=== PATIENT | female | born 1960 | race Hispanic/Latino ===

== ENCOUNTER 2016-10-27 15:32 | Emergency (ER) | payer SELFPAY ==
--- NOTE | 2016-10-27 15:55 | Emergency Department Report ---
Stated Complaint: CHEST PAIN - HPI History of Present Illness: Patient c/o soreness-type chest pain gradually worsening x days. States slipped and fell, landing on her chest 5 days ago. States pain causing her to have SOB. - Exam Physical Exam: Heart: RRR. R Chest wall tender to palpation. MSE screening note: Focused history and physical exam performed. Due to findings the following was ordered: ED Disposition for MSE Condition: Stable
--- NOTE | 2016-10-27 16:54 | XRay Report ---
CHEST 2 VIEWS: INDICATION: Chest pain, shortness of breath. COMPARISON: 04/24/2016 FINDINGS: PA and lateral chest radiographs again demonstrate normal cardiomediastinal silhouette, slight aortic knob calcifications and clear lungs. Grossly unremarkable bones. CONCLUSION: No acute disease in the chest. Thank you for the opportunity to participate in this patient's care.
--- NOTE | 2016-10-27 16:54 | XRay Report ---
RIB RADIOGRAPHS WITH CHEST VIEW: INDICATION: Patient fell on chest 5 days ago. Chest, right upper pain. Pain on breathing and raising arms. Smoker, history of asthma. COMPARISON: 04/24/2016 CXR. FINDINGS: Frontal chest as also AP and oblique radiographs to evaluate bilateral ribs, 6 projections demonstrate normal cardiomediastinal silhouette. Clear lungs without effusions, CHF or pneumothorax. Slight aortic knob calcifications. Lumbar spondylosis and fusion hardware incompletely imaged. Specifically, no definite or significantly displaced rib fractures identified. CONCLUSION: Normal bilateral rib radiographs with few other incidental findings, as described. Please note that some acute rib fractures may be radiographically occult. Thank you for the opportunity to participate in this patient's care.
[2016-10-27 17:12] LABS: Basophils % (Auto) 0.6 % (0.0-1.8); Eosinophils % (Auto) 1.8 % (0.0-4.3); Hematocrit 43.5 % (30.3-42.9); Hemoglobin 14.8 gm/dl (10.1-14.3); Mean Corpuscular HGB Conc 34 % (30-34); Mean Corpuscular Hemoglobin 29 pg (28-32); Mean Corpuscular Volume 84 fl (79-97); Platelet Count 265 K/mm3 (140-440); Red Blood Count 5.17 M/mm3 (3.65-5.03); Red Cell Distribution Width 14.5 % (13.2-15.2); White Blood Count 10.8 K/mm3 (4.5-11.0)
[2016-10-27 17:29] LABS: Creatine Kinase MB 1.1 ng/mL (0.0-4.0)
[2016-10-27 17:30] LABS: Anion Gap 19 mmol/L; BUN/Creatinine Ratio 13.33; Blood Urea Nitrogen 12 mg/dL (7-17); Calcium 9.1 mg/dL (8.4-10.2); Carbon Dioxide 27 mmol/L (22-30); Chloride 94.9 mmol/L (98-107); Creatine Kinase 26 units/L (30-135); Glucose 269 mg/dL (65-100); Sodium 137 mmol/L (137-145)
--- NOTE | 2016-10-27 20:40 | Emergency Department Report ---
Addendum entered and electronically signed by QUINCY CHENG NP 20:54: Original Note: ED Fall HPI - General Chief Complaint: Chest Pain Stated Complaint: CHEST PAIN Source: patient Mode of arrival: Ambulatory - History of Present Illness Initial Comments: Patient presents after a fall 4 days ago landing on her chest. She states the pain is in the right upper portion. She states she tripped over a garbage can and fell on the concrete. She does admit to trying Aleve with no help and hydrocodone 5 mg that did help. She denies hitting her head, nausea, vomiting, chills, fever. 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 Place Fall Occurred: home Loss of Consciousness: none Prolonged Down Time?: no Symptoms Prior to Fall: none Location: chest Severity: severe Severity scale (0 -10): 10 Quality: sharp, aching Context: tripped/slipped Associated Symptoms: denies - Related Data Previous Rx's Medication Instructions Recorded Last Taken Type Miconazole Nitrate [Miconazole 7 1 suppositor VG QHS #7 supp.vag 08/11/15 Unknown Rx Vag Suppos] Ciprofloxacin HCl [Ciprofloxacin 500 mg PO BID #20 tablet 04/25/16 Unknown Rx TAB] Cyclobenzaprine HCl 7.5 mg PO BID PRN #14 tab 10/27/16 Unknown Rx [Cyclobenzaprine 7.5 MG TAB] Allergies Allergy/AdvReac Type Severity Reaction Status Date / Time codeine Allergy Rash Verified 08/10/15 12:04 ED Review of Systems ROS: Stated complaint: CHEST PAIN Other details as noted in HPI Constitutional: denies: chills, fever Respiratory: denies: cough, shortness of breath, wheezing Cardiovascular: denies: chest pain, palpitations Gastrointestinal: denies: abdominal pain, nausea, diarrhea Musculoskeletal: as per HPI Skin: denies: rash, lesions Neurological: denies: headache, weakness, paresthesias ED Past Medical Hx - Past Medical History Hx Hypertension: Yes Hx Diabetes: Yes Additional medical history: hyperthyroid - Surgical History Additional Surgical History: fusion to back - Social History Smoking Status: Never Smoker Substance Use Type: None - Medications Home Medications: Home Medications Medication Instructions Recorded Confirmed Last Taken Type Miconazole Nitrate [Miconazole 7 1 suppositor VG QHS #7 supp.vag 10/26/15 Unknown Rx Vag Suppos] Ciprofloxacin HCl [Ciprofloxacin 500 mg PO BID #20 tablet 04/25/16 Unknown Rx TAB] Cyclobenzaprine HCl 7.5 mg PO BID PRN #14 tab 10/27/16 Unknown Rx [Cyclobenzaprine 7.5 MG TAB] ED Physical Exam - General Limitations: No Limitations General appearance: alert, in no apparent distress - Head Head exam: Present: atraumatic, normocephalic - Neck Neck exam: Present: normal inspection, full ROM - Respiratory Respiratory exam: Present: normal lung sounds bilaterally. Absent: respiratory distress - Cardiovascular Cardiovascular Exam: Present: regular rate, normal rhythm. Absent: systolic murmur, diastolic murmur, rubs, gallop - GI/Abdominal GI/Abdominal exam: Present: soft, normal bowel sounds - Back Exam Back exam: Present: normal inspection - Neurological Exam Neurological exam: Present: alert, oriented X3 - Psychiatric Psychiatric exam: Present: normal affect, normal mood - Skin Skin exam: Present: warm, dry, intact, normal color. Absent: rash - Other Other exam information: There is no bruising to her right upper chest, there is no decreased range of motion of upper extremities. She is tender to palpation in the intercostal spaces approximately at rib #4-5. Not appreciate any swelling, or redness. ED Course Vital Signs 10/27/16 15:51 Temperature 98.6 F Pulse Rate 95 H Respiratory 20 Rate Blood Pressure 112/79 O2 Sat by Pulse 100 Oximetry ED Medical Decision Making - Lab Data Result diagrams: 10/27/16 16:51 10/27/16 16:51 - Medical Decision Making Patient presents with a fall, her EKG is within normal her chest x-ray is within normal and her rib x-ray is within normal. She is requesting hydrocodone , I informed her I could give her tramadol which she declined. I will give her Flexeril. I'll advise her to use a pillow to splint when taking deep breaths. - Differential Diagnosis rib fracture, muscle strain Critical Care Time: No Critical care attestation.: If time is entered above; I have spent that time in minutes in the direct care of this critically ill patient, excluding procedure time. ED Disposition Clinical Impression: Pectoralis muscle strain Disposition: DISCHARGED TO HOME OR SELFCARE Is pt being admited?: No Does the pt Need Aspirin: No Condition: Stable Instructions: Muscle Strain (ED), Musculoskeletal Pain (ED) Prescriptions: Cyclobenzaprine HCl [Cyclobenzaprine 7.5 MG TAB] 7.5 mg PO BID PRN #14 tab PRN Reason: Pain Time of Disposition: 20:52
[2016-10-27 21:12] VITALS: BP 116/82
== END 2016-10-27 21:11 | disposition home or self-care (01) ==
LOC: ED 15:32
DX: S29.011A Strain of muscle and tendon of front wall of thorax, initial encounter (principal); I10 Essential (primary) hypertension; E11.9 Type 2 diabetes mellitus without complications; E05.90 Thyrotoxicosis, unspecified without thyrotoxic crisis or storm; Z88.5 Allergy status to narcotic agent; W19.XXXA Unspecified fall, initial encounter; Y93.89 Activity, other specified; Y99.9 Unspecified external cause status; Y92.89 Other specified places as the place of occurrence of the external cause
CPT/HCPCS: 36415; 71020; 71110; 80048; 82550; 82553; 84484; 85025; 93005; 93010

== ENCOUNTER 2017-05-26 09:58 | Emergency (ER) | payer SELFPAY ==
[2017-05-26 10:05] VITALS: BP 155/91
[2017-05-27] MEDS ORDERED: NORCO 7.5/325 ONE (16:07)
== END 2017-05-26 12:58 | disposition left against medical advice (07) ==
LOC: ED 09:58
DX: M79.89 Other specified soft tissue disorders (principal); Z53.21 Procedure and treatment not carried out due to patient leaving prior to being seen by health care provider

== ENCOUNTER 2017-05-27 10:25 | Inpatient (IN) | payer SELFPAY ==
[2017-05-27] MEDS ORDERED: NACL 0.9% 1000 ML 1,000 ML IV ONE ×2 (12:23→13:35)
[2017-05-27] MEDS ORDERED: XYLOCAINE 1% 20 mL INFILTRATI ONE (12:23)
[2017-05-27] MEDS ORDERED: CLEOCIN 900 MG/50 mL 900 MG/50 ML BAG IV ONE (12:26)
[2017-05-27 13:10] LABS: Hematocrit 37.3 % (30.3-42.9); Hemoglobin 12.2 gm/dl (10.1-14.3); Mean Corpuscular HGB Conc 33 % (30-34); Mean Corpuscular Hemoglobin 28 pg (28-32); Mean Corpuscular Volume 87 fl (79-97); Platelet Count 256 K/mm3 (140-440); Red Cell Distribution Width 13.7 % (13.2-15.2); White Blood Count 19.8 K/mm3 (4.5-11.0)
[2017-05-27 13:30] LABS: Albumin 2.7 g/dL (3.9-5); Albumin/Globulin Ratio 0.6 %; BUN/Creatinine Ratio 24.61; Bilirubin,Total 0.6 mg/dL (0.1-1.2); Calcium 8.5 mg/dL (8.4-10.2); Chloride 79.1 mmol/L (98-107); Potassium 4.6 mmol/L (3.6-5.0); Total Protein 6.9 g/dL (6.3-8.2)
[2017-05-27] MEDS ORDERED: D50W (25GM) Syringe IV PRN ×2 (13:59→15:35)
[2017-05-27] MEDS ORDERED: NovoLIN R 100 UNITS in NACL 0.9% 99 ML IV SCH ×3 (14:00→22:00)
[2017-05-27] MEDS ORDERED: SODIUM CHLORIDE FLUSH SYRINGE 10 ML IV NR (14:00)
[2017-05-27] MEDS ORDERED: NACL 0.9% 500 ML 500 ML IV ONE (14:01)
[2017-05-27] MEDS ORDERED: NORCO PO ONE (14:01)
--- NOTE | 2017-05-27 14:01 | Emergency Department Report ---
ED General Adult HPI - General Chief complaint: Skin/Abscess/Foreign Body Stated complaint: KNOT UNDER RIGHT ARM/INFLAMED Time Seen by Provider: 05/27/17 12:05 Source: patient, RN notes reviewed Mode of arrival: Ambulatory Limitations: No Limitations - History of Present Illness Initial comments: This is a 56-year-old female. She is previously unknown to me. She presents to the ER complaining of right lateral flank wall redness, pain and discomfort. Complains of generalized weakness. No fevers or chills, no chest pain or shortness of breath. In the emergency department, patient is found to be hyperglycemic with a blood sugar of 659, with a decreased sodium of 118, likely combination of pseudohyponatremia, and hypovolemic hyponatremia. Patient was found to be tachycardic with a leukocytosis. The patient is going to be treated empirically for soft tissue cellulitis/sepsis, with appropriate normal saline bolus, lactic acid, blood cultures, and IV clindamycin. The patient is started on the diabetic ketoacidosis pathway, with an insulin drip and insulin push. Case was presented to the critical care physician on-call, Dr. Medina, who agreed with placement to the intensive care unit for the aforementioned findings. Case was also discussed with nephrology on-call, Dr. Jacobson, who agree the patient's hyponatremia was most likely combination secondary to pseudohyponatremia and hypovolemia. Case is presented to the Hospital physician, Dr. Raymond, who accepts the patient to his service. The patient's right lateral flank wall erythema and induration are not suitable for incision and drainage at this time, as there is no fluctuance. -: Gradual Location: chest, back, abdomen Quality: aching Consistency: constant Improves with: rest Worsens with: movement Associated Symptoms: loss of appetite, malaise, weakness - Related Data Home Medications Medication Instructions Recorded Confirmed Last Taken Escitalopram [Lexapro] 10 mg PO DAILY 05/27/17 05/27/17 05/27/17 Levothyroxine [Synthroid] 50 mcg PO QAM 05/27/17 05/27/17 05/27/17 Lisinopril [Zestril] 20 mg PO QDAY 05/27/17 05/27/17 05/27/17 PARoxetine CR (NF) [Paxil (Nf)] 12.5 mg PO QAM 05/27/17 05/27/17 05/27/17 Rosuvastatin (Nf) [Crestor] 20 mg PO QHS 05/27/17 05/27/17 05/27/17 Allergies Allergy/AdvReac Type Severity Reaction Status Date / Time codeine Allergy Rash Verified 05/27/17 10:49 ED Review of Systems ROS: Stated complaint: KNOT UNDER RIGHT ARM/INFLAMED Other details as noted in HPI Constitutional: malaise Eyes: denies: vision change ENT: denies: epistaxis Respiratory: denies: cough Cardiovascular: denies: chest pain Gastrointestinal: denies: abdominal pain Musculoskeletal: back pain, arthralgia, myalgia Skin: rash, lesions Neurological: weakness ED Past Medical Hx - Past Medical History Hx Hypertension: Yes Hx Diabetes: Yes Hx Arthritis: Yes Hx Asthma: Yes Additional medical history: hyperthyroid - Surgical History Additional Surgical History: fusion to back - Social History Smoking Status: Current Every Day Smoker Substance Use Type: None - Medications Home Medications: Home Medications Medication Instructions Recorded Confirmed Last Taken Type Escitalopram [Lexapro] 10 mg PO DAILY 05/27/17 05/27/17 05/27/17 History Levothyroxine [Synthroid] 50 mcg PO QAM 05/27/17 05/27/17 05/27/17 History Lisinopril [Zestril] 20 mg PO QDAY 05/27/17 05/27/17 05/27/17 History PARoxetine CR (NF) [Paxil (Nf)] 12.5 mg PO QAM 05/27/17 05/27/17 05/27/17 History Rosuvastatin (Nf) [Crestor] 20 mg PO QHS 05/27/17 05/27/17 05/27/17 History ED Physical Exam - General Limitations: No Limitations General appearance: alert, in no apparent distress - Head Head exam: Present: atraumatic, normocephalic - Eye Eye exam: Present: normal appearance, EOMI. Absent: nystagmus - ENT ENT exam: Present: normal exam, normal orophraynx, mucous membranes dry, normal external ear exam - Neck Neck exam: Present: normal inspection, full ROM. Absent: tenderness, meningismus - Respiratory Respiratory exam: Present: normal lung sounds bilaterally, chest wall tenderness (on the right lateral thoracic wall, there are areas of induration, redness and tenderness. Well-circumscribed area of induration in the proximal axilla, however no fluctuance or crepitus.). Absent: respiratory distress, wheezes, rales, rhonchi, stridor, accessory muscle use, decreased breath sounds , prolonged expiratory - Cardiovascular Cardiovascular Exam: Present: normal rhythm, tachycardia, normal heart sounds. Absent: systolic murmur, diastolic murmur, rubs, gallop - GI/Abdominal GI/Abdominal exam: Present: soft, normal bowel sounds. Absent: distended, tenderness, guarding, rebound, rigid - Extremities Exam Extremities exam: Present: normal inspection, full ROM, normal capillary refill. Absent: pedal edema, joint swelling, calf tenderness - Back Exam Back exam: Present: normal inspection, full ROM. Absent: tenderness, CVA tenderness (R), CVA tenderness (L), muscle spasm, paraspinal tenderness, vertebral tenderness - Neurological Exam Neurological exam: Present: alert, oriented X3, normal gait, other (Extraocular movements intact. Tongue midline. No facial droop. Facial sensation intact to light touch in the V1, V2, V3 distribution bilaterally. 5 and 5 strength in 4 extremities.. Sensation is intact to light touch in 4 extremities.). Absent : motor sensory deficit - Psychiatric Psychiatric exam: Present: normal affect, normal mood - Skin Skin exam: Present: warm, rash, erythema ED Course Vital Signs 05/27/17 05/27/17 05/27/17 10:38 13:56 14:29 Temperature 97.9 F 98.5 F Pulse Rate 125 H 103 H 107 H Respiratory 18 18 17 Rate Blood Pressure 107/55 Blood Pressure [94/56] Blood Pressure 104/61 [Left] O2 Sat by Pulse 98 100 Oximetry 05/27/17 05/27/17 05/27/17 14:30 14:40 14:50 Temperature Pulse Rate 109 H 109 H 104 H Respiratory 13 15 11 L Rate Blood Pressure 120/61 120/61 Blood Pressure [94/56] Blood Pressure [Left] O2 Sat by Pulse 98 Oximetry 05/27/17 05/27/17 05/27/17 15:00 15:10 15:20 Temperature Pulse Rate 103 H 101 H 103 H Respiratory 18 23 19 Rate Blood Pressure 97/55 97/55 97/55 Blood Pressure [94/56] Blood Pressure [Left] O2 Sat by Pulse 97 98 98 Oximetry 05/27/17 05/27/17 05/27/17 15:30 15:40 15:50 Temperature Pulse Rate 100 H 105 H 103 H Respiratory 26 H 16 14 Rate Blood Pressure 97/55 97/55 97/55 Blood Pressure [94/56] Blood Pressure [Left] O2 Sat by Pulse 98 97 98 Oximetry 05/27/17 05/27/17 05/27/17 16:00 16:10 16:19 Temperature Pulse Rate 105 H 108 H Respiratory 10 L 13 22 Rate Blood Pressure 94/46 94/56 Blood Pressure [94/56] Blood Pressure [Left] O2 Sat by Pulse 98 98 Oximetry 05/27/17 05/27/17 05/27/17 16:20 16:21 16:30 Temperature 98.6 F Pulse Rate 102 H 105 H 102 H Respiratory 29 H 22 31 H Rate Blood Pressure 94/56 94/56 Blood Pressure 94/56 [94/56] Blood Pressure [Left] O2 Sat by Pulse 97 98 98 Oximetry 05/27/17 05/27/17 05/27/17 16:40 16:50 17:00 Temperature Pulse Rate 102 H 103 H 103 H Respiratory 29 H 35 H 27 H Rate Blood Pressure 94/56 94/56 80/43 Blood Pressure [94/56] Blood Pressure [Left] O2 Sat by Pulse 97 95 96 Oximetry 05/27/17 05/27/17 05/27/17 17:10 17:20 17:30 Temperature Pulse Rate 104 H 105 H 98 H Respiratory 31 H 14 30 H Rate Blood Pressure 80/43 80/43 80/42 Blood Pressure [94/56] Blood Pressure [Left] O2 Sat by Pulse 94 96 95 Oximetry 05/27/17 05/27/17 05/27/17 17:40 17:50 18:00 Temperature Pulse Rate 98 H 98 H 99 H Respiratory 28 H 27 H 24 Rate Blood Pressure 85/46 84/45 85/47 Blood Pressure [94/56] Blood Pressure [Left] O2 Sat by Pulse 96 95 96 Oximetry ED Medical Decision Making - Lab Data Result diagrams: 05/27/17 13:00 05/27/17 16:18 Vital Signs 05/27/17 05/27/17 10:38 13:56 Temperature 97.9 F 98.5 F Pulse Rate 125 H 103 H Respiratory 18 18 Rate Blood Pressure 107/55 Blood Pressure 104/61 [Left] O2 Sat by Pulse 98 100 Oximetry Lab Results 05/27/17 05/27/17 05/27/17 Range/Units 13:00 13:00 13:00 WBC 19.8 H (4.5-11.0) K/mm3 RBC 4.30 (3.65-5.03) M/mm3 Hgb 12.2 (10.1-14.3) gm/dl Hct 37.3 (30.3-42.9) % MCV 87 (79-97) fl MCH 28 (28-32) pg MCHC 33 (30-34) % RDW 13.7 (13.2-15.2) % Plt Count 256 (140-440) K/mm3 Add Manual Diff Complete Total Counted 100 Seg Neutrophils % Legal Analyst Seg Neuts % (Manual) 84.0 H (40.0-70.0) % Band Neutrophils % 14.0 % Lymphocytes % (Manual) 2.0 L (13.4-35.0) % Reactive Lymphs % (Man) 0 % Monocytes % (Manual) 0 (0.0-7.3) % Eosinophils % (Manual) 0 (0.0-4.3) % Basophils % (Manual) 0 (0.0-1.8) % Metamyelocytes % 0 % Myelocytes % 0 % Promyelocytes % 0 % Blast Cells % 0 % Nucleated RBC % Not Reportable Seg Neutrophils # Man 16.6 H (1.8-7.7) K/mm3 Band Neutrophils # 2.8 K/mm3 Lymphocytes # (Manual) 0.4 L (1.2-5.4) K/mm3 Abs React Lymphs (Man) 0.0 K/mm3 Monocytes # (Manual) 0.0 (0.0-0.8) K/mm3 Eosinophils # (Manual) 0.0 (0.0-0.4) K/mm3 Basophils # (Manual) 0.0 (0.0-0.1) K/mm3 Metamyelocytes # 0.0 K/mm3 Myelocytes # 0.0 K/mm3 Promyelocytes # 0.0 K/mm3 Blast Cells # 0.0 K/mm3 WBC Morphology Not Reportable Hypersegmented Neuts Not Reportable Hyposegmented Neuts Not Reportable Hypogranular Neuts Not Reportable Smudge Cells Not Reportable Toxic Granulation Not Reportable Toxic Vacuolation Not Reportable Dohle Bodies Not Reportable Pelger-Huet Anomaly Not Reportable Aria Rods Not Reportable Platelet Estimate Appears normal Clumped Platelets Not Reportable Plt Clumps, EDTA Not Reportable Large Platelets Few Giant Platelets Not Reportable Platelet Satelliting Not Reportable Plt Morphology Comment Not Reportable RBC Morphology Normal Dimorphic RBCs Not Reportable Polychromasia Not Reportable Hypochromasia Not Reportable Poikilocytosis Not Reportable Anisocytosis Not Reportable Microcytosis Not Reportable Macrocytosis Not Reportable Spherocytes Not Reportable Pappenheimer Bodies Not Reportable Sickle Cells Not Reportable Target Cells Not Reportable Tear Drop Cells Not Reportable Ovalocytes Not Reportable Helmet Cells Not Reportable [place] Bodies Not Reportable [place] Rings Not Reportable [place] Cells Not Reportable Bite Cells Not Reportable Crenated Cell Not Reportable Elliptocytes Not Reportable Acanthocytes (Spur) Not Reportable Rouleaux Not Reportable Hemoglobin C Crystals Not Reportable Schistocytes Not Reportable Malaria parasites Not Reportable Erick Bodies Not Reportable Hem Pathologist Commnt No VBG pH (7.320-7.420) Sodium 118 L* (137-145) mmol/L Potassium 4.6 (3.6-5.0) mmol/L Chloride 79.1 L (98-107) mmol/L Carbon Dioxide 22 (22-30) mmol/L Anion Gap 22 mmol/L BUN 32 H (7-17) mg/dL Creatinine 1.3 H (0.7-1.2) mg/dL Estimated GFR 43 ml/min BUN/Creatinine Ratio 24.61 % Glucose 659 H* (65-100) mg/dL Lactic Acid 2.90 H* (0.7-2.0) mmol/L Calcium 8.5 (8.4-10.2) mg/dL Total Bilirubin 0.60 (0.1-1.2) mg/dL AST 14 (5-40) units/L ALT 13 (7-56) units/L Alkaline Phosphatase 105 (35-129) units/L Total Protein 6.9 (6.3-8.2) g/dL Albumin 2.7 L (3.9-5) g/dL Albumin/Globulin Ratio 0.6 % 05/27/17 Range/Units 13:54 WBC (4.5-11.0) K/mm3 RBC (3.65-5.03) M/mm3 Hgb (10.1-14.3) gm/dl Hct (30.3-42.9) % MCV (79-97) fl MCH (28-32) pg MCHC (30-34) % RDW (13.2-15.2) % Plt Count (140-440) K/mm3 Add Manual Diff Total Counted Seg Neutrophils % Seg Neuts % (Manual) (40.0-70.0) % Band Neutrophils % % Lymphocytes % (Manual) (13.4-35.0) % Reactive Lymphs % (Man) % Monocytes % (Manual) (0.0-7.3) % Eosinophils % (Manual) (0.0-4.3) % Basophils % (Manual) (0.0-1.8) % Metamyelocytes % % Myelocytes % % Promyelocytes % % Blast Cells % % Nucleated RBC % Seg Neutrophils # Man (1.8-7.7) K/mm3 Band Neutrophils # K/mm3 Lymphocytes # (Manual) (1.2-5.4) K/mm3 Abs React Lymphs (Man) K/mm3 Monocytes # (Manual) (0.0-0.8) K/mm3 Eosinophils # (Manual) (0.0-0.4) K/mm3 Basophils # (Manual) (0.0-0.1) K/mm3 Metamyelocytes # K/mm3 Myelocytes # K/mm3 Promyelocytes # K/mm3 Blast Cells # K/mm3 WBC Morphology Hypersegmented Neuts Hyposegmented Neuts Hypogranular Neuts Smudge Cells Toxic Granulation Toxic Vacuolation Dohle Bodies Pelger-Huet Anomaly Aria Rods Platelet Estimate Clumped Platelets Plt Clumps, EDTA Large Platelets Giant Platelets Platelet Satelliting Plt Morphology Comment RBC Morphology Dimorphic RBCs Polychromasia Hypochromasia Poikilocytosis Anisocytosis Microcytosis Macrocytosis Spherocytes Pappenheimer Bodies Sickle Cells Target Cells Tear Drop Cells Ovalocytes Helmet Cells [place] Bodies [place] Rings [place] Cells Bite Cells Crenated Cell Elliptocytes Acanthocytes (Spur) Rouleaux Hemoglobin C Crystals Schistocytes Malaria parasites Erick Bodies Hem Pathologist Commnt VBG pH 7.347 (7.320-7.420) Sodium (137-145) mmol/L Potassium (3.6-5.0) mmol/L Chloride (98-107) mmol/L Carbon Dioxide (22-30) mmol/L Anion Gap mmol/L BUN (7-17) mg/dL Creatinine (0.7-1.2) mg/dL Estimated GFR ml/min BUN/Creatinine Ratio % Glucose (65-100) mg/dL Lactic Acid (0.7-2.0) mmol/L Calcium (8.4-10.2) mg/dL Total Bilirubin (0.1-1.2) mg/dL AST (5-40) units/L ALT (7-56) units/L Alkaline Phosphatase (35-129) units/L Total Protein (6.3-8.2) g/dL Albumin (3.9-5) g/dL Albumin/Globulin Ratio % - Radiology Data Radiology results: image reviewed interpreted by me: X-ray of the chest is negative for acute disease Critical Care Time: Yes Critical care time in (mins) excluding proc time.: 60 Critical care attestation.: If time is entered above; I have spent that time in minutes in the direct care of this critically ill patient, excluding procedure time. Critical Care Time: Critical care time includes multiple bedside evaluations, interpretation of laboratory studies, radiology studies, time spent managing critically ill patient with multiple metabolic, electrolytes and infectious disease abnormalities. This required consultation with hospital medicine, critical care nephrology. This does not include procedure time. ED Disposition Clinical Impression: Sepsis affecting skin, Hyperglycemia, Renal insufficiency Disposition: OP ADMIT IP TO THIS HOSP Is pt being admited?: Yes Condition: Good
[2017-05-27 14:19] LABS: Basophils % (Manual) 0 % (0.0-1.8); Blastocytes % (Manual) 0 %; Diff Status Complete; Eosinophils % (Manual) 0 % (0.0-4.3); Large Platelets Few; RBC Morphology Normal; Total Cells Counted Percent 0
[2017-05-27 14:32] LABS: Magnesium 2.1 mg/dL (1.7-2.3); Phosphorous 3.7 mg/dL (2.5-4.5)
--- NOTE | 2017-05-27 14:50 | Admit Criteria Form ---
Admission Criteria Documentation: SEPSIS and OTHER FEBRILE ILLNESS, W/O FOCAL INFECTION Clinical Indications for Admission to Inpatient Care ( Place 'X' for any and all applicable criteria): Admission to inpatient status for two midnights or more is indicated for ANY ONE of the following (1)(2)(3): [ X] I. Bacteremia [ ]II. Suspected or identified specific infection requiring hospitalization (eg, meningitis, endocarditis) [ ]III. Hemodynamic instability [ ]IV. Temperature > 104.9 0F (40.5 0C) (oral) [ ]V. Core (rectal) temperature < 95 0F (35 0C) (eg, thought to be due to infection) [ ]. Altered mental status that is severe or persistent [ ]VII. Failure or unavailability of outpatient antimicrobial treatment [ ]VIII. Hypoxemia [ ]IX. Seizures [ ]X. New coagulopathy (eg, reduced platelet count consistent with disseminated intravascular coagulation) [X ]XI. Inpatient admission required [B] rather than observation care because of 1 or more of the following []1) Tachypnea not responsive to outpatient or observation treatment [X]2) Metabolic disorder (eg, hypoglycemia, hyperglycemia, metabolic acidosis) that persists despite outpatient and observation care treatment []3) Evidence of end-organ dysfunction (eg, rising creatinine, myocardial ischemia, rising liver function tests) that is severe or persists despite observation care treatment []4) Temperature > 103.1 0F (39.5 0C) (oral) that is not responsive to observation care treatment [] 5) Dehydration that is severe or persistent []6) Parenteral antimicrobial regimen that must be implemented on inpatient basis (eg, infusion or monitoring needs beyond capabilities of outpatient parenteral therapy) [] 7) Strict or protective (eg, laminar flow) isolation [X] 8) Other condition, treatment or monitoring requiring inpatient admission Extended stay beyond goal length of stay may be needed for(1)(3) [ ]a) Persistent Hypotension [ ]b) Positive blood cultures [ ]c) Lack of improvement on antimicrobial treatment (eg, continued fever) [ ]d) Active comorbid illness (eg, heart failure, renal failure) [ ]e) High-risk febrile neutropenia [ ]f) Insufficient oral intake [ ]g) insufficient oral intake The original [facility] content created by [employer] has been revised. The portions of the content which have been revised are identified through the use of italic text or in bold, and [facility] has neither reviewed nor approved the modified material. All other unmodified content is copyright [facility]. Please see references footnoted in the original [facility] edition 2017 Admission Criteria Met: Yes
[2017-05-27] MEDS ORDERED: ZOFRAN ONE (15:00)
[2017-05-27] MEDS ORDERED: ZOFRAN IV ONE (15:04)
[2017-05-27 15:15] LABS: Bacteria,Urine 1+ /HPF (Negative); Bilirubin,Urine NEG (Negative); Blood,Urine SM (Negative); Ketones,Urine 20 mg/dL (Negative); Leukocyte Esterase,Urine LG (Negative); Mucus,Urine FEW /HPF; Nitrite,Urine NEG (Negative); Protein,Urine <15 mg/dL mg/dL (Negative)
[2017-05-27 15:17] LABS: WBC,Urine > 182.0 /HPF (0.0-6.0)
--- NOTE | 2017-05-27 15:27 | History and Physical Report ---
History of Present Illness Date of examination: 05/27/17 Date of admission: 05/27/17 Chief complaint: Feeling weak and nauseous 2 days History of present illness: History of Present Illness 56-year-old female presents to the ER complaining of right lateral flank wall redness, pain and discomfort. Complains of generalized weakness. No fevers or chills, no chest pain or shortness of breath. In the emergency department, patient is found to be hyperglycemic with a blood sugar of 659, with a decreased sodium of 118, likely combination of pseudohyponatremia, and hypovolemic hyponatremia. Patient was found to be tachycardic with a leukocytosis. Past Medical History Hx Hypertension: Yes Hx Diabetes: Yes Hx Arthritis: Yes Hx Asthma: Yes Additional medical history: hypothyroid - Surgical History Additional Surgical History: fusion to back - Social History Smoking Status: Current Every Day Smoker Substance Use Type: None - Medications Home Medications: Home Medications Medication Instructions Recorded Confirmed Last Taken Type Escitalopram [Lexapro] 10 mg PO DAILY 05/27/17 05/27/17 05/27/17 History Levothyroxine [Synthroid] 50 mcg PO QAM 05/27/17 05/27/17 05/27/17 History Lisinopril [Zestril] 20 mg PO QDAY 05/27/17 05/27/17 05/27/17 History PARoxetine CR (NF) [Paxil (Nf)] 12.5 mg PO QAM 05/27/17 05/27/17 05/27/17 History Rosuvastatin (Nf) [Crestor] 20 mg PO QHS 05/27/17 05/27/17 05/27/17 History Medications and Allergies Allergies Allergy/AdvReac Type Severity Reaction Status Date / Time codeine Allergy Rash Verified 05/27/17 10:49 Home Medications Medication Instructions Recorded Confirmed Last Taken Type Escitalopram [Lexapro] 10 mg PO DAILY 05/27/17 05/27/17 05/27/17 History Levothyroxine [Synthroid] 50 mcg PO QAM 05/27/17 05/27/17 05/27/17 History Lisinopril [Zestril] 20 mg PO QDAY 05/27/17 05/27/17 05/27/17 History PARoxetine CR (NF) [Paxil (Nf)] 12.5 mg PO QAM 05/27/17 05/27/17 05/27/17 History Rosuvastatin (Nf) [Crestor] 20 mg PO QHS 05/27/17 05/27/17 05/27/17 History Active Meds: Active Medications Dextrose (D50w (25gm)) 0 ml IV PRN PRN PRN Reason: Hypoglycemia Insulin Human Regular 100 (units/ Sodium Chloride) 100 mls @ 1 mls/hr IV TITR BRITTNI; 1 UNITS/HR PRN Reason: Protocol Sodium Chloride (Sodium Chloride Flush Syringe 10 Ml) 10 ml IV PRN NR Stop: 05/30/17 13:59 Review of Systems All systems: negative Constitutional: no weight loss, no weight gain, no fever, no chills, no sweats, no night sweats Ears, nose, mouth and throat: no hoarseness, no sore throat, no swelling in mouth, no swelling in throat Cardiovascular: no chest pain, no orthopnea, no palpitations, no rapid/ irregular heart beat, no edema, no syncope Respiratory: no cough, no cough with sputum, no excessive sputum, no hemoptysis , no shortness of breath, no dyspnea on exertion Gastrointestinal: nausea, vomiting Musculoskeletal: no neck stiffness, no neck pain, no shooting arm pain, no arm numbness/tingling, no low back pain, no shooting leg pain, no leg numbness/ tingling, no redness of joints Integumentary: redness (Rt Flank c/w early abscess) Neurological: no seizures, no syncope Psychiatric: no anxiety, no memory loss, no change in sleep habits, no sleep disturbances, no insomnia, no hypersomnia, no change in appetite, no change in libido Endocrine: excessive thirst, no cold intolerance, no heat intolerance Hematologic/Lymphatic: no easy bruising, no easy bleeding Allergic/Immunologic: no urticaria, no allergic rhinitis, no wheezing Exam - Physical Exam Narrative exam: In no distress - Constitutional Vitals: Temp Pulse Resp BP Pulse Ox 98.5 F 103 H 18 104/61 100 05/27/17 13:56 05/27/17 13:56 05/27/17 13:56 05/27/17 13:56 05/27/17 13:56 General appearance: Present: no acute distress, well-nourished - EENT Eyes: Present: PERRL ENT: hearing intact, clear oral mucosa - Neck Neck: Present: supple, normal ROM - Respiratory Respiratory effort: normal Respiratory: bilateral: CTA - Cardiovascular Heart rate: 90 Rhythm: regular Heart Sounds: Present: S1 & S2. Absent: rub, click - Extremities Extremities: no ischemia, pulses intact, pulses symmetrical, No edema Peripheral Pulses: within normal limits - Abdominal General gastrointestinal: Present: soft, non-tender, non-distended, normal bowel sounds, other (Rt Flank redness c/w early abscess) Female genitourinary: Present: normal - Rectal Rectal Exam: deferred - Integumentary Integumentary: Present: clear, warm, dry - Musculoskeletal Musculoskeletal: gait normal, strength equal bilaterally - Psychiatric Psychiatric: appropriate mood/affect, intact judgment & insight - Neurologic Neurologic: CNII-XII intact, moves all extremities Results - Labs CBC & Chem 7: 05/27/17 13:00 05/28/17 08:20 Labs: Laboratory Last Values WBC 19.8 K/mm3 (4.5-11.0) H 05/27/17 13:00 RBC 4.30 M/mm3 (3.65-5.03) 05/27/17 13:00 Hgb 12.2 gm/dl (10.1-14.3) 05/27/17 13:00 Hct 37.3 % (30.3-42.9) 05/27/17 13:00 MCV 87 fl (79-97) 05/27/17 13:00 MCH 28 pg (28-32) 05/27/17 13:00 MCHC 33 % (30-34) 05/27/17 13:00 RDW 13.7 % (13.2-15.2) 05/27/17 13:00 Plt Count 256 K/mm3 (140-440) 05/27/17 13:00 Add Manual Diff Complete 05/27/17 13:00 Total Counted 100 05/27/17 13:00 Seg Neutrophils % Screen Making Supervisor 05/27/17 13:00 Seg Neuts % (Manual) 84.0 % (40.0-70.0) H 05/27/17 13:00 Band Neutrophils % 14.0 % 05/27/17 13:00 Lymphocytes % (Manual) 2.0 % (13.4-35.0) L 05/27/17 13:00 Reactive Lymphs % (Man) 0 % 05/27/17 13:00 Monocytes % (Manual) 0 % (0.0-7.3) 05/27/17 13:00 Eosinophils % (Manual) 0 % (0.0-4.3) 05/27/17 13:00 Basophils % (Manual) 0 % (0.0-1.8) 05/27/17 13:00 Metamyelocytes % 0 % 05/27/17 13:00 Myelocytes % 0 % 05/27/17 13:00 Promyelocytes % 0 % 05/27/17 13:00 Blast Cells % 0 % 05/27/17 13:00 Nucleated RBC % Not Reportable 05/27/17 13:00 Seg Neutrophils # Man 16.6 K/mm3 (1.8-7.7) H 05/27/17 13:00 Band Neutrophils # 2.8 K/mm3 05/27/17 13:00 Lymphocytes # (Manual) 0.4 K/mm3 (1.2-5.4) L 05/27/17 13:00 Abs React Lymphs (Man) 0.0 K/mm3 05/27/17 13:00 Monocytes # (Manual) 0.0 K/mm3 (0.0-0.8) 05/27/17 13:00 Eosinophils # (Manual) 0.0 K/mm3 (0.0-0.4) 05/27/17 13:00 Basophils # (Manual) 0.0 K/mm3 (0.0-0.1) 05/27/17 13:00 Metamyelocytes # 0.0 K/mm3 05/27/17 13:00 Myelocytes # 0.0 K/mm3 05/27/17 13:00 Promyelocytes # 0.0 K/mm3 05/27/17 13:00 Blast Cells # 0.0 K/mm3 05/27/17 13:00 WBC Morphology Not Reportable 05/27/17 13:00 Hypersegmented Neuts Not Reportable 05/27/17 13:00 Hyposegmented Neuts Not Reportable 05/27/17 13:00 Hypogranular Neuts Not Reportable 05/27/17 13:00 Smudge Cells Not Reportable 05/27/17 13:00 Toxic Granulation Not Reportable 05/27/17 13:00 Toxic Vacuolation Not Reportable 05/27/17 13:00 Dohle Bodies Not Reportable 05/27/17 13:00 Pelger-Huet Anomaly Not Reportable 05/27/17 13:00 Aria Rods Not Reportable 05/27/17 13:00 Platelet Estimate Appears normal 05/27/17 13:00 Clumped Platelets Not Reportable 05/27/17 13:00 Plt Clumps, EDTA Not Reportable 05/27/17 13:00 Large Platelets Few 05/27/17 13:00 Giant Platelets Not Reportable 05/27/17 13:00 Platelet Satelliting Not Reportable 05/27/17 13:00 Plt Morphology Comment Not Reportable 05/27/17 13:00 RBC Morphology Normal 05/27/17 13:00 Dimorphic RBCs Not Reportable 05/27/17 13:00 Polychromasia Not Reportable 05/27/17 13:00 Hypochromasia Not Reportable 05/27/17 13:00 Poikilocytosis Not Reportable 05/27/17 13:00 Anisocytosis Not Reportable 05/27/17 13:00 Microcytosis Not Reportable 05/27/17 13:00 Macrocytosis Not Reportable 05/27/17 13:00 Spherocytes Not Reportable 05/27/17 13:00 Pappenheimer Bodies Not Reportable 05/27/17 13:00 Sickle Cells Not Reportable 05/27/17 13:00 Target Cells Not Reportable 05/27/17 13:00 Tear Drop Cells Not Reportable 05/27/17 13:00 Ovalocytes Not Reportable 05/27/17 13:00 Helmet Cells Not Reportable 05/27/17 13:00 [place] Bodies Not Reportable 05/27/17 13:00 [place] Rings Not Reportable 05/27/17 13:00 [place] Cells Not Reportable 05/27/17 13:00 Bite Cells Not Reportable 05/27/17 13:00 Crenated Cell Not Reportable 05/27/17 13:00 Elliptocytes Not Reportable 05/27/17 13:00 Acanthocytes (Spur) Not Reportable 05/27/17 13:00 Rouleaux Not Reportable 05/27/17 13:00 Hemoglobin C Crystals Not Reportable 05/27/17 13:00 Schistocytes Not Reportable 05/27/17 13:00 Malaria parasites Not Reportable 05/27/17 13:00 Erick Bodies Not Reportable 05/27/17 13:00 Hem Pathologist Commnt No 05/27/17 13:00 VBG pH 7.347 (7.320-7.420) 05/27/17 13:54 Sodium 118 mmol/L (137-145) L* 05/27/17 13:00 Potassium 4.6 mmol/L (3.6-5.0) 05/27/17 13:00 Chloride 79.1 mmol/L (98-107) L 05/27/17 13:00 Carbon Dioxide 22 mmol/L (22-30) 05/27/17 13:00 Anion Gap 22 mmol/L 05/27/17 13:00 BUN 32 mg/dL (7-17) H 05/27/17 13:00 Creatinine 1.3 mg/dL (0.7-1.2) H 05/27/17 13:00 Estimated GFR 43 ml/min 05/27/17 13:00 BUN/Creatinine Ratio 24.61 % 05/27/17 13:00 Glucose 659 mg/dL (65-100) H* 05/27/17 13:00 POC Glucose > 500 (70-105) H 05/27/17 14:57 Ketones Quantitative Negative (Negative) 05/27/17 13:54 Lactic Acid 3.10 mmol/L (0.7-2.0) H* 05/27/17 13:54 Calcium 8.5 mg/dL (8.4-10.2) 05/27/17 13:00 Phosphorus 3.70 mg/dL (2.5-4.5) 05/27/17 13:54 Magnesium 2.10 mg/dL (1.7-2.3) 05/27/17 13:54 Total Bilirubin 0.60 mg/dL (0.1-1.2) 05/27/17 13:00 AST 14 units/L (5-40) 05/27/17 13:00 ALT 13 units/L (7-56) 05/27/17 13:00 Alkaline Phosphatase 105 units/L (35-129) 05/27/17 13:00 Total Protein 6.9 g/dL (6.3-8.2) 05/27/17 13:00 Albumin 2.7 g/dL (3.9-5) L 05/27/17 13:00 Albumin/Globulin Ratio 0.6 % 05/27/17 13:00 Urine Color Yellow (Yellow) 05/27/17 Unknown Urine Turbidity Cloudy (Clear) 05/27/17 Unknown Urine pH 5.0 (5.0-7.0) 05/27/17 Unknown Ur Specific [place] 1.024 (1.003-1.030) 05/27/17 Unknown Urine Protein <15 mg/dl mg/dL (Negative) 05/27/17 Unknown Urine Glucose (UA) >=500 mg/dL (Negative) 05/27/17 Unknown Urine Ketones 20 mg/dL (Negative) 05/27/17 Unknown Urine Blood Sm (Negative) 05/27/17 Unknown Urine Nitrite Neg (Negative) 05/27/17 Unknown Urine Bilirubin Neg (Negative) 05/27/17 Unknown Urine Urobilinogen 2.0 mg/dL (<2.0) 05/27/17 Unknown Ur Leukocyte Esterase Lg (Negative) 05/27/17 Unknown Urine WBC (Auto) > 182.0 /HPF (0.0-6.0) H 05/27/17 Unknown Urine RBC (Auto) 7.0 /HPF (0.0-6.0) 05/27/17 Unknown U Epithel Cells (Auto) 9.0 /HPF (0-13.0) 05/27/17 Unknown Urine Bacteria (Auto) 1+ /HPF (Negative) 05/27/17 Unknown Urine Mucus Few /HPF 05/27/17 Unknown Short CBC 05/27/17 Range/Units 13:00 WBC 19.8 H (4.5-11.0) K/mm3 Hgb 12.2 (10.1-14.3) gm/dl Hct 37.3 (30.3-42.9) % Plt Count 256 (140-440) K/mm3 BMP 05/27/17 05/27/17 05/27/17 13:00 16:18 19:38 Sodium 118 L* 126 L D 130 L Potassium 4.6 4.7 4.5 Chloride 79.1 L 87.1 L 94.1 L Carbon Dioxide 22 21 L 22 BUN 32 H 31 H 34 H Creatinine 1.3 H 1.2 1.3 H Glucose 659 H* 410 H 223 H Calcium 8.5 8.0 L 7.9 L 05/27/17 05/27/17 05/28/17 22:30 23:49 01:11 Sodium 129 L 129 L 124 L Potassium 3.8 3.7 3.9 Chloride 94.2 L 93.5 L 92.3 L Carbon Dioxide 22 22 16 L BUN 34 H 34 H 34 H Creatinine 1.1 1.1 1.1 Glucose 77 104 H 103 H Calcium 8.0 L 7.8 L 7.9 L 05/28/17 05/28/17 05/28/17 02:25 05:33 08:20 Sodium 128 L 129 L 129 L Potassium 3.8 4.0 3.8 Chloride 94.0 L 95.3 L 96.0 L Carbon Dioxide 19 L 17 L 18 L BUN 34 H 36 H 33 H Creatinine 1.1 1.1 1.0 Glucose 136 H 155 H 124 H Calcium 8.1 L 7.7 L 7.9 L Liver Function 05/27/17 Range/Units 13:00 Total Bilirubin 0.60 (0.1-1.2) mg/dL AST 14 (5-40) units/L ALT 13 (7-56) units/L Alkaline Phosphatase 105 (35-129) units/L Albumin 2.7 L (3.9-5) g/dL Urine 05/27/17 Range/Units Unknown Urine Color Yellow (Yellow) Urine pH 5.0 (5.0-7.0) Ur Specific [place] 1.024 (1.003-1.030) Urine Protein <15 mg/dl (Negative) mg/dL Urine Glucose (UA) >=500 (Negative) mg/dL - Imaging and Cardiology EKG: report reviewed Chest x-ray: report reviewed Assessment and Plan Advance Directives: Yes (Full code) VTE prophylaxis?: Chemical Plan of care discussed with patient/family: Yes - Patient Problems (1) DKA (diabetic ketoacidoses) Current Visit: Yes Status: Acute Qualifiers: Diabetes mellitus type: type 2 Diabetes mellitus complication detail: D Plan to address problem: DKA protocol with IV insulin and IV fluids (2) Abscess Current Visit: Yes Status: Acute Plan to address problem: Rt flank abscess-IV abx started (3) Acute renal failure Current Visit: Yes Status: Acute Qualifiers: Acute renal failure type: unspecified Qualified Code(s): N17.9 - Acute kidney failure, unspecified Plan to address problem: Renal consult ordered (4) Hyponatremia Current Visit: Yes Status: Acute Plan to address problem: Pseudo natremia should correct with IV Insulin and IV fluids (5) UTI (urinary tract infection) Current Visit: Yes Status: Acute Qualifiers: Urinary tract infection type: acute cystitis Hematuria presence: H Encounter type: E Plan to address problem: IV Rocephin for now pending C &S (6) Sepsis Current Visit: Yes Status: Acute Qualifiers: Sepsis type: S Plan to address problem: IV rocephin and IV Vancomycin (7) DVT prophylaxis Current Visit: Yes Status: Acute Plan to address problem: on lovenox
[2017-05-27] MEDS ORDERED: DULCOLAX PR PRN (15:28)
[2017-05-27] MEDS ORDERED: MILK OF MAGNESIA PO PRN (15:28)
[2017-05-27] MEDS ORDERED: ZOFRAN IV PRN (15:28)
--- NOTE | 2017-05-27 15:31 | XRay Report ---
Chest 2 views: Compared to 10/27/16. History: Cough. Findings: Normal cardiomediastinal silhouette. Trachea is midline. No consolidation, pneumothorax or pleural effusion. Impression: No acute cardiopulmonary findings.
[2017-05-27] MEDS: ZESTRIL PO SCH (16:29)
[2017-05-27] MEDS ORDERED: NACL 0.9% 500 ML 500 ML ONE (16:34)
[2017-05-27] MEDS: LEXAPRO PO SCH (16:42)
[2017-05-27 16:57] LABS: BUN/Creatinine Ratio 25.83; Chloride 87.1 mmol/L (98-107); Potassium 4.7 mmol/L (3.6-5.0)
[2017-05-27 16:58] LABS: Phosphorous 2.5 mg/dL (2.5-4.5)
[2017-05-27] MEDS ORDERED: NACL 0.9% 1000 ML 1,000 ML ONE (17:13)
[2017-05-27] MEDS: NACL 0.9% 1000 ML 1,000 ML IV SCH ×2 (17:56→22:55)
[2017-05-27] MEDS ORDERED: NACL 0.9% 1000 ML 1,000 ML IV SCH (18:00)
[2017-05-27 20:43] LABS: BUN/Creatinine Ratio 26.15; Calcium 7.9 mg/dL (8.4-10.2); Chloride 94.1 mmol/L (98-107); Potassium 4.5 mmol/L (3.6-5.0)
[2017-05-27] MEDS ORDERED: D50W (25GM) Vial IV PRN (21:15)
[2017-05-27] MEDS: DILAUDID IV PRN (21:37)
[2017-05-27] MEDS ORDERED: NON-FORMULARY (Rosuvastatin (Nf) 20 MG) PO SCH (22:00)
[2017-05-28 00:25] LABS: BUN/Creatinine Ratio 30.9; Chloride 94.2 mmol/L (98-107); Magnesium 1.9 mg/dL (1.7-2.3); Phosphorous 2.1 mg/dL (2.5-4.5); Potassium 3.8 mmol/L (3.6-5.0)
[2017-05-28 00:32] LABS: BUN/Creatinine Ratio 30.9; Calcium 7.8 mg/dL (8.4-10.2); Chloride 93.5 mmol/L (98-107); Potassium 3.7 mmol/L (3.6-5.0)
[2017-05-28 01:59] LABS: BUN/Creatinine Ratio 30.9; Calcium 7.9 mg/dL (8.4-10.2); Chloride 92.3 mmol/L (98-107); Potassium 3.9 mmol/L (3.6-5.0)
[2017-05-28 03:12] LABS: BUN/Creatinine Ratio 30.9; Calcium 8.1 mg/dL (8.4-10.2); Potassium 3.8 mmol/L (3.6-5.0)
[2017-05-28] MEDS: SYNTHROID PO SCH (06:05)
[2017-05-28 07:08] LABS: BUN/Creatinine Ratio 32.72; Calcium 7.7 mg/dL (8.4-10.2); Chloride 95.3 mmol/L (98-107)
[2017-05-28 08:57] LABS: Calcium 7.9 mg/dL (8.4-10.2); Potassium 3.8 mmol/L (3.6-5.0)
[2017-05-28] MEDS ORDERED: D5/0.45NS 1,000 ML IV SCH ×2 (09:00)
[2017-05-28] MEDS ORDERED: VANCOMYCIN PHARMACY TO DOSE IV SCH (10:00)
[2017-05-28] MEDS ORDERED: PAROXETINE 12.5 MG PO SCH ×2 (10:00)
[2017-05-28] MEDS ORDERED: LEVEMIR SUB-Q SCH (10:00)
[2017-05-28] MEDS ORDERED: PNEUMOVAX 23 IM ONE (12:00)
[2017-05-28] MEDS: NOVOLOG SUB-Q SCH ×3 (12:22→21:31)
[2017-05-28] MEDS: ZESTRIL PO SCH (12:27)
[2017-05-28] MEDS: LEXAPRO PO SCH (12:28)
--- NOTE | 2017-05-28 12:37 | Progress Note ---
Assessment and Plan Assessment and plan: DKA. Resolved. Patient will be transitioned to her home regimen of long acting 70/30 insulin. Discontinue IV insulin drip. Sepsis. Continue IV antibiotics. Right flank abscess. Surgery consultation. Continue IV antibiotics. Consider ID consultation. Acute renal failure. Nephrology consultation. Etiology likely secondary to sepsis/ATN/AMMY Pseudohyponatremia. Follow BMP. UTI. Continue IV antibiotics. DVT prophylaxis. Continue Lovenox. History Interval history: No new issues overnight. Patient sitting up in a chair comfortably. Hospitalist Physical - Constitutional Vitals: Temp Pulse Resp BP Pulse Ox 99.1 F 109 H 17 124/70 98 05/28/17 08:00 05/28/17 12:27 05/28/17 10:00 05/28/17 12:27 05/28/17 10:00 General appearance: Present: no acute distress, well-nourished - EENT Eyes: Present: PERRL, EOM intact ENT: hearing intact, clear oral mucosa, dentition normal - Neck Neck: Present: supple, normal ROM - Respiratory Respiratory effort: normal Respiratory: bilateral: CTA - Cardiovascular Rhythm: regular Heart Sounds: Present: S1 & S2. Absent: gallop, rub - Extremities Extremities: no ischemia, No edema, Full ROM - Abdominal General gastrointestinal: soft, non-tender, non-distended, normal bowel sounds - Integumentary Integumentary: Present: clear, warm, dry - Neurologic Neurologic: CNII-XII intact, moves all extremities Results - Labs CBC & Chem 7: 05/27/17 13:00 05/28/17 08:20 Labs: Laboratory Last Values WBC 19.8 K/mm3 (4.5-11.0) H 05/27/17 13:00 RBC 4.30 M/mm3 (3.65-5.03) 05/27/17 13:00 Hgb 12.2 gm/dl (10.1-14.3) 05/27/17 13:00 Hct 37.3 % (30.3-42.9) 05/27/17 13:00 MCV 87 fl (79-97) 05/27/17 13:00 MCH 28 pg (28-32) 05/27/17 13:00 MCHC 33 % (30-34) 05/27/17 13:00 RDW 13.7 % (13.2-15.2) 05/27/17 13:00 Plt Count 256 K/mm3 (140-440) 05/27/17 13:00 Add Manual Diff Complete 05/27/17 13:00 Total Counted 100 05/27/17 13:00 Seg Neutrophils % Screw Machine Operator 05/27/17 13:00 Seg Neuts % (Manual) 84.0 % (40.0-70.0) H 05/27/17 13:00 Band Neutrophils % 14.0 % 05/27/17 13:00 Lymphocytes % (Manual) 2.0 % (13.4-35.0) L 05/27/17 13:00 Reactive Lymphs % (Man) 0 % 05/27/17 13:00 Monocytes % (Manual) 0 % (0.0-7.3) 05/27/17 13:00 Eosinophils % (Manual) 0 % (0.0-4.3) 05/27/17 13:00 Basophils % (Manual) 0 % (0.0-1.8) 05/27/17 13:00 Metamyelocytes % 0 % 05/27/17 13:00 Myelocytes % 0 % 05/27/17 13:00 Promyelocytes % 0 % 05/27/17 13:00 Blast Cells % 0 % 05/27/17 13:00 Nucleated RBC % Not Reportable 05/27/17 13:00 Seg Neutrophils # Man 16.6 K/mm3 (1.8-7.7) H 05/27/17 13:00 Band Neutrophils # 2.8 K/mm3 05/27/17 13:00 Lymphocytes # (Manual) 0.4 K/mm3 (1.2-5.4) L 05/27/17 13:00 Abs React Lymphs (Man) 0.0 K/mm3 05/27/17 13:00 Monocytes # (Manual) 0.0 K/mm3 (0.0-0.8) 05/27/17 13:00 Eosinophils # (Manual) 0.0 K/mm3 (0.0-0.4) 05/27/17 13:00 Basophils # (Manual) 0.0 K/mm3 (0.0-0.1) 05/27/17 13:00 Metamyelocytes # 0.0 K/mm3 05/27/17 13:00 Myelocytes # 0.0 K/mm3 05/27/17 13:00 Promyelocytes # 0.0 K/mm3 05/27/17 13:00 Blast Cells # 0.0 K/mm3 05/27/17 13:00 WBC Morphology Not Reportable 05/27/17 13:00 Hypersegmented Neuts Not Reportable 05/27/17 13:00 Hyposegmented Neuts Not Reportable 05/27/17 13:00 Hypogranular Neuts Not Reportable 05/27/17 13:00 Smudge Cells Not Reportable 05/27/17 13:00 Toxic Granulation Not Reportable 05/27/17 13:00 Toxic Vacuolation Not Reportable 05/27/17 13:00 Dohle Bodies Not Reportable 05/27/17 13:00 Pelger-Huet Anomaly Not Reportable 05/27/17 13:00 Aria Rods Not Reportable 05/27/17 13:00 Platelet Estimate Appears normal 05/27/17 13:00 Clumped Platelets Not Reportable 05/27/17 13:00 Plt Clumps, EDTA Not Reportable 05/27/17 13:00 Large Platelets Few 05/27/17 13:00 Giant Platelets Not Reportable 05/27/17 13:00 Platelet Satelliting Not Reportable 05/27/17 13:00 Plt Morphology Comment Not Reportable 05/27/17 13:00 RBC Morphology Normal 05/27/17 13:00 Dimorphic RBCs Not Reportable 05/27/17 13:00 Polychromasia Not Reportable 05/27/17 13:00 Hypochromasia Not Reportable 05/27/17 13:00 Poikilocytosis Not Reportable 05/27/17 13:00 Anisocytosis Not Reportable 05/27/17 13:00 Microcytosis Not Reportable 05/27/17 13:00 Macrocytosis Not Reportable 05/27/17 13:00 Spherocytes Not Reportable 05/27/17 13:00 Pappenheimer Bodies Not Reportable 05/27/17 13:00 Sickle Cells Not Reportable 05/27/17 13:00 Target Cells Not Reportable 05/27/17 13:00 Tear Drop Cells Not Reportable 05/27/17 13:00 Ovalocytes Not Reportable 05/27/17 13:00 Helmet Cells Not Reportable 05/27/17 13:00 [place] Bodies Not Reportable 05/27/17 13:00 [place] Rings Not Reportable 05/27/17 13:00 [place] Cells Not Reportable 05/27/17 13:00 Bite Cells Not Reportable 05/27/17 13:00 Crenated Cell Not Reportable 05/27/17 13:00 Elliptocytes Not Reportable 05/27/17 13:00 Acanthocytes (Spur) Not Reportable 05/27/17 13:00 Rouleaux Not Reportable 05/27/17 13:00 Hemoglobin C Crystals Not Reportable 05/27/17 13:00 Schistocytes Not Reportable 05/27/17 13:00 Malaria parasites Not Reportable 05/27/17 13:00 [place]rick Bodies Not Reportable 05/27/17 13:00 Hem Pathologist Commnt No 05/27/17 13:00 VBG pH 7.284 (7.320-7.420) L 05/27/17 16:18 Sodium 129 mmol/L (137-145) L 05/28/17 08:20 Potassium 3.8 mmol/L (3.6-5.0) 05/28/17 08:20 Chloride 96.0 mmol/L (98-107) L 05/28/17 08:20 Carbon Dioxide 18 mmol/L (22-30) L 05/28/17 08:20 Anion Gap 19 mmol/L 05/28/17 08:20 BUN 33 mg/dL (7-17) H 05/28/17 08:20 Creatinine 1.0 mg/dL (0.7-1.2) 05/28/17 08:20 Estimated GFR 58 ml/min 05/28/17 08:20 BUN/Creatinine Ratio 33.00 % 05/28/17 08:20 Glucose 124 mg/dL (65-100) H 05/28/17 08:20 POC Glucose 295 (70-105) H 05/28/17 12:13 Ketones Quantitative Negative (Negative) 05/27/17 13:54 Lactic Acid 3.10 mmol/L (0.7-2.0) H* 05/27/17 13:54 Calcium 7.9 mg/dL (8.4-10.2) L 05/28/17 08:20 Phosphorus 2.10 mg/dL (2.5-4.5) L 05/27/17 22:30 Magnesium 1.90 mg/dL (1.7-2.3) 05/27/17 22:30 Total Bilirubin 0.60 mg/dL (0.1-1.2) 05/27/17 13:00 AST 14 units/L (5-40) 05/27/17 13:00 ALT 13 units/L (7-56) 05/27/17 13:00 Alkaline Phosphatase 105 units/L (35-129) 05/27/17 13:00 Total Protein 6.9 g/dL (6.3-8.2) 05/27/17 13:00 Albumin 2.7 g/dL (3.9-5) L 05/27/17 13:00 Albumin/Globulin Ratio 0.6 % 05/27/17 13:00 Urine Color Yellow (Yellow) 05/27/17 Unknown Urine Turbidity Cloudy (Clear) 05/27/17 Unknown Urine pH 5.0 (5.0-7.0) 05/27/17 Unknown Ur Specific [place] 1.024 (1.003-1.030) 05/27/17 Unknown Urine Protein <15 mg/dl mg/dL (Negative) 05/27/17 Unknown Urine Glucose (UA) >=500 mg/dL (Negative) 05/27/17 Unknown Urine Ketones 20 mg/dL (Negative) 05/27/17 Unknown Urine Blood Sm (Negative) 05/27/17 Unknown Urine Nitrite Neg (Negative) 05/27/17 Unknown Urine Bilirubin Neg (Negative) 05/27/17 Unknown Urine Urobilinogen 2.0 mg/dL (<2.0) 05/27/17 Unknown Ur Leukocyte Esterase Lg (Negative) 05/27/17 Unknown Urine WBC (Auto) > 182.0 /HPF (0.0-6.0) H 05/27/17 Unknown Urine RBC (Auto) 7.0 /HPF (0.0-6.0) 05/27/17 Unknown U Epithel Cells (Auto) 9.0 /HPF (0-13.0) 05/27/17 Unknown Urine Bacteria (Auto) 1+ /HPF (Negative) 05/27/17 Unknown Urine Mucus Few /HPF 05/27/17 Unknown
[2017-05-28] MEDS ORDERED: D50W (25GM) Vial IV ONE (13:00)
[2017-05-28] MEDS ORDERED: ROCEPHIN/NS 2 GM/100 ML 2 GM/100 ML BAG IV SCH (13:00)
--- NOTE | 2017-05-28 13:05 | Progress Note ---
Subjective Date of service: 05/28/17 Interval history: Seen and examined at bedside; 24 hour events reviewed; nursing and respiratory care staff consulted; no adverse overnight events reported to me; Objective Vital Signs - 12hr 05/28/17 05/28/17 05/28/17 03:50 04:17 08:00 Temperature 98.8 F 99.1 F Pulse Rate Pulse Rate [ 98 H 99 H Apical] Pulse Rate [ 97 H From Monitor] Respiratory 17 17 Rate Blood Pressure O2 Sat by Pulse 99 98 Oximetry 05/28/17 05/28/17 05/28/17 10:00 12:00 12:27 Temperature 98.8 F Pulse Rate 99 H 109 H Pulse Rate [ Apical] Pulse Rate [ From Monitor] Respiratory 17 Rate Blood Pressure 124/70 O2 Sat by Pulse 98 Oximetry CBC and BMP: 05/27/17 13:00 05/28/17 08:20 Abnormal lab findings: Abnormal Labs 05/27/17 05/27/17 05/27/17 16:18 16:18 16:39 VBG pH 7.284 L Sodium 126 L D Chloride 87.1 L Carbon Dioxide 21 L BUN 31 H Creatinine Glucose 410 H POC Glucose 334 H Calcium 8.0 L Phosphorus Urine WBC (Auto) 05/27/17 05/27/17 05/27/17 18:02 19:08 19:38 VBG pH Sodium 130 L Chloride 94.1 L Carbon Dioxide BUN 34 H Creatinine 1.3 H Glucose 223 H POC Glucose 364 H 313 H Calcium 7.9 L Phosphorus Urine WBC (Auto) 05/27/17 05/27/17 05/27/17 20:07 21:00 21:47 VBG pH Sodium Chloride Carbon Dioxide BUN Creatinine Glucose POC Glucose 266 H 171 H 132 H Calcium Phosphorus Urine WBC (Auto) 05/27/17 05/27/17 05/27/17 22:30 23:49 Unknown VBG pH Sodium 129 L 129 L Chloride 94.2 L 93.5 L Carbon Dioxide BUN 34 H 34 H Creatinine Glucose 104 H POC Glucose Calcium 8.0 L 7.8 L Phosphorus 2.10 L Urine WBC (Auto) > 182.0 H 05/28/17 05/28/17 05/28/17 01:11 01:19 02:00 VBG pH Sodium 124 L Chloride 92.3 L Carbon Dioxide 16 L BUN 34 H Creatinine Glucose 103 H POC Glucose 124 H 111 H Calcium 7.9 L Phosphorus Urine WBC (Auto) 05/28/17 05/28/17 05/28/17 02:25 03:06 04:17 VBG pH Sodium 128 L Chloride 94.0 L Carbon Dioxide 19 L BUN 34 H Creatinine Glucose 136 H POC Glucose 164 H 181 H Calcium 8.1 L Phosphorus Urine WBC (Auto) 05/28/17 05/28/17 05/28/17 04:53 05:32 05:33 VBG pH Sodium 129 L Chloride 95.3 L Carbon Dioxide 17 L BUN 36 H Creatinine Glucose 155 H POC Glucose 184 H 171 H Calcium 7.7 L Phosphorus Urine WBC (Auto) 05/28/17 05/28/17 05/28/17 07:56 08:20 09:04 VBG pH Sodium 129 L Chloride 96.0 L Carbon Dioxide 18 L BUN 33 H Creatinine Glucose 124 H POC Glucose 131 H 126 H Calcium 7.9 L Phosphorus Urine WBC (Auto) 05/28/17 05/28/17 09:58 12:13 VBG pH Sodium Chloride Carbon Dioxide BUN Creatinine Glucose POC Glucose 142 H 295 H Calcium Phosphorus Urine WBC (Auto)
--- NOTE | 2017-05-28 13:06 | Consultation ---
History of Present Illness Consult date: 05/28/17 Requesting physician: DERIC PATINO Reason for consult: other (DKA) History of present illness: PULMONARY/CCM CONSULT NOTE (Full dictation # [id number]) Please see dictated notes for full details Medications and Allergies Allergies Allergy/AdvReac Type Severity Reaction Status Date / Time codeine Allergy Rash Verified 05/27/17 10:49 Home Medications Medication Instructions Recorded Confirmed Last Taken Type Escitalopram [Lexapro] 10 mg PO DAILY 05/27/17 05/27/17 05/27/17 History Levothyroxine [Synthroid] 50 mcg PO QAM 05/27/17 05/27/17 05/27/17 History Lisinopril [Zestril] 20 mg PO QDAY 05/27/17 05/27/17 05/27/17 History PARoxetine CR (NF) [Paxil (Nf)] 12.5 mg PO QAM 05/27/17 05/27/17 05/27/17 History Rosuvastatin (Nf) [Crestor] 20 mg PO QHS 05/27/17 05/27/17 05/27/17 History Active Meds: Active Medications Acetaminophen (Tylenol) 650 mg PO Q4H PRN PRN Reason: Pain MILD(1-3)/Fever >100.5/ZELAYA Acetaminophen/Hydrocodone Bitart ([place] 5/325) 1 each PO Q4H PRN PRN Reason: Pain, Moderate (4-6) Atorvastatin Calcium (Lipitor) 40 mg PO QHS [facility] Last Admin: 05/27/17 21:35 Dose: 40 mg Bisacodyl (Dulcolax) 10 mg [place] QDAY PRN PRN Reason: Constipation unrelieved by MOM Dextrose (D50w (25gm)) 0 ml IV PRN PRN PRN Reason: Hypoglycemia Dextrose (D50w (25gm)) 0 gm IV PRN PRN PRN Reason: Hypoglycemia Last Admin: 05/27/17 23:55 Dose: 10 gm Escitalopram Oxalate (Lexapro) 10 mg PO DAILY [facility] Last Admin: 05/28/17 12:28 Dose: 10 mg Hydromorphone HCl (Dilaudid) 0.5 mg IV Q3H PRN PRN Reason: Pain , Severe (7-10) Last Admin: 05/27/17 21:37 Dose: 0.5 mg Sodium Chloride (Nacl 0.9% 1000 Ml) 1,000 mls @ 125 mls/hr IV DIRECT [facility] Last Admin: 05/27/17 22:55 Dose: 125 mls/hr Piperacillin Sod/Tazobactam Sod (Zosyn/Ns 4.5gm/100ml) 4.5 gm in 100 mls @ 200 mls/hr IV Q8HR [facility] PRN Reason: Protocol Insulin Aspart (Novolog) 0 units SUB-Q ACHS [facility] PRN Reason: Protocol Last Admin: 05/28/17 12:22 Dose: 6 units Insulin Human Isoph/Insulin Regular (Novolin 70/30) 25 unit SUB-Q QAMDIAB [facility] Insulin Human Isoph/Insulin Regular (Novolin 70/30) 15 unit SUB-Q QPM [facility] Levothyroxine Sodium (Synthroid) 50 mcg PO 0600 [facility] Last Admin: 05/28/17 06:05 Dose: 50 mcg Lisinopril (Zestril) 20 mg PO QDAY [facility] Last Admin: 05/28/17 12:27 Dose: 20 mg Magnesium Hydroxide (Milk Of Magnesia) 30 ml PO Q4H PRN PRN Reason: Constipation Miscellaneous Medication (Paroxetine Cr (Nf)) 12.5 mg PO QAM [facility] Ondansetron HCl (Zofran) 4 mg IV Q8H PRN PRN Reason: N/V unrelieved by Steven Last Admin: 05/27/17 21:34 Dose: 4 mg Sodium Chloride (Sodium Chloride Flush Syringe 10 Ml) 10 ml IV PRN NR Stop: 05/30/17 13:59 Vancomycin HCl (Vancomycin Pharmacy To Dose) 1 each IV PKCONSULT [facility] PRN Reason: Protocol Physical Examination Vital signs: Vital Signs Temp Pulse Resp BP Pulse Ox 97.9 F 125 H 18 107/55 98 05/27/17 10:38 05/27/17 10:38 05/27/17 10:38 05/27/17 10:38 05/27/17 10:38 Results - Laboratory Findings CBC and BMP: 05/27/17 13:00 05/28/17 12:59 Abnormal lab findings: Abnormal Labs 05/27/17 05/27/17 05/27/17 16:18 16:18 16:39 VBG pH 7.284 L Sodium 126 L D Chloride 87.1 L Carbon Dioxide 21 L BUN 31 H Creatinine Glucose 410 H POC Glucose 334 H Calcium 8.0 L Phosphorus Urine WBC (Auto) 05/27/17 05/27/17 05/27/17 18:02 19:08 19:38 VBG pH Sodium 130 L Chloride 94.1 L Carbon Dioxide BUN 34 H Creatinine 1.3 H Glucose 223 H POC Glucose 364 H 313 H Calcium 7.9 L Phosphorus Urine WBC (Auto) 05/27/17 05/27/17 05/27/17 20:07 21:00 21:47 VBG pH Sodium Chloride Carbon Dioxide BUN Creatinine Glucose POC Glucose 266 H 171 H 132 H Calcium Phosphorus Urine WBC (Auto) 05/27/17 05/27/17 05/27/17 22:30 23:49 Unknown VBG pH Sodium 129 L 129 L Chloride 94.2 L 93.5 L Carbon Dioxide BUN 34 H 34 H Creatinine Glucose 104 H POC Glucose Calcium 8.0 L 7.8 L Phosphorus 2.10 L Urine WBC (Auto) > 182.0 H 05/28/17 05/28/17 05/28/17 01:11 01:19 02:00 VBG pH Sodium 124 L Chloride 92.3 L Carbon Dioxide 16 L BUN 34 H Creatinine Glucose 103 H POC Glucose 124 H 111 H Calcium 7.9 L Phosphorus Urine WBC (Auto) 05/28/17 05/28/17 05/28/17 02:25 03:06 04:17 VBG pH Sodium 128 L Chloride 94.0 L Carbon Dioxide 19 L BUN 34 H Creatinine Glucose 136 H POC Glucose 164 H 181 H Calcium 8.1 L Phosphorus Urine WBC (Auto) 05/28/17 05/28/17 05/28/17 04:53 05:32 05:33 VBG pH Sodium 129 L Chloride 95.3 L Carbon Dioxide 17 L BUN 36 H Creatinine Glucose 155 H POC Glucose 184 H 171 H Calcium 7.7 L Phosphorus Urine WBC (Auto) 05/28/17 05/28/17 05/28/17 07:56 08:20 09:04 VBG pH Sodium 129 L Chloride 96.0 L Carbon Dioxide 18 L BUN 33 H Creatinine Glucose 124 H POC Glucose 131 H 126 H Calcium 7.9 L Phosphorus Urine WBC (Auto) 05/28/17 05/28/17 09:58 12:13 VBG pH Sodium Chloride Carbon Dioxide BUN Creatinine Glucose POC Glucose 142 H 295 H Calcium Phosphorus Urine WBC (Auto)
[2017-05-28 13:47] LABS: Chloride 94.6 mmol/L (98-107); Potassium 4.1 mmol/L (3.6-5.0)
[2017-05-28] MEDS ORDERED: ZOSYN/NS 4.5GM/100ML 4.5 GM/100 ML VIAL IV SCH (14:00)
[2017-05-28] MEDS: PAXIL PO SCH (14:07)
[2017-05-28] MEDS ORDERED: NACL 0.9% 500 ML 500 ML IV ONE (14:56)
--- NOTE | 2017-05-28 15:15 | Consultation ---
PULMONARY CRITICAL CARE CONSULT NOTE CONSULTING PHYSICIAN: Dr. Shah and Dr. Raymond. REASON FOR CONSULTATION: Diabetic ketoacidosis, need for IV insulin administration and ICU admission. CHIEF COMPLAINT AND HISTORY OF PRESENT ILLNESS: As follows: The patient is a 56-year-old female with past medical history indeed significant for longstanding diabetes. She stated she has been taking her medications, who came to the Emergency Room a couple of days prior due to abscess/boil under her right armpit. She was unable to get in. When she did come back yesterday, she had significant erythema with tenderness, unlikely element of cellulitis involving the right side of her flank, essentially going all the way down from her right armpit. She also was found to be hyperglycemic. She was diagnosed with diabetic ketoacidosis and ICU admission was requested for IV insulin administration. When I stopped by to see her, she was just transitioned and off the IV insulin, feeling a little bit better, still complaining of some pain in the right side. No nausea or vomiting today. No fevers or chills. She has a 20+ pack-year tobacco smoking history and continues to smoke. That really is as much of the history of presentation as I have. PAST MEDICAL HISTORY: Hypertension, diabetes, arthritis, asthma, and hypothyroidism. She is obese. PAST SURGICAL HISTORY: She has had lower back spine fusion surgery. MEDICATIONS: She was on at the time I stopped by to see her, according to the medication administration record included the following: Tylenol 650 mg p.o. q. 4 hours p.r.n. mild pain, [place] 5/325 one tablet p.o. q. 4 hours p.r.n. moderate pain, Lipitor 40 mg p.o. q. h.s. p.r.n., Dulcolax, Lexapro 10 mg p.o. daily, Dilaudid 0.5 mg IV q. 3 hours p.r.n. severe pain, insulin via sliding scale 70/30 insulin 15 units subcu q.p.m. and 25 units subq q.a.m. has been started, Levoxyl 50 mcg p.o. daily, lisinopril 20 mg p.o. daily, Zofran 4 mg IV q. 8 hours p.r.n. nausea and vomiting, Zosyn 4.5 grams IV q. 8 hours, Paxil 12.5 mg p.o. daily, vancomycin 1.25 grams IV q. 24 hours. ALLERGIES: CODEINE, nature of this allergy is unknown. DIET: Obese lady, denies acute weight loss or gain in the preceding few weeks to months. FAMILY AND SOCIAL HISTORY: Lives in the community, 20+ pack-year tobacco smoking history. Denies alcohol or illicit drug use or abuse. Family history, otherwise is positive for diabetes. REVIEW OF SYSTEMS: No loss of consciousness. No new onset seizures. No new onset focal weakness. No gross hematochezia or melena. No gross hematuria or dysuria. No hematemesis. No hemoptysis. Complete 13-system review of systems obtained. Pertinent positives and/or negatives as in body of history above, otherwise they are noncontributory. PHYSICAL EXAMINATION: VITAL SIGNS: At presentation, she was afebrile, temperature 97.9, pulse was 125, respiratory rate was 18, blood pressure 107/55, oxygen sats were 98%, inspired oxygen concentration was not recorded. HEAD, EYES, EARS, NOSE AND THROAT: Pupils are equal, round, 3-4 mm, reactive to light. Extraocular muscle movements are intact. Oropharynx is a Mallampati #2 oropharynx. No significant posterior oropharyngeal erythema. LUNGS: Auscultation of both lung sanchez, lungs are clear bilaterally, slightly prolonged expiratory phase. No wheezing. HEART: Heart sounds 1 and 2 are heard. They were regular in rate and rhythm at time of my evaluation. ABDOMEN: Soft, full, bowel sounds are positive, nontender. EXTREMITIES: Without overt digital clubbing, cyanosis, or pedal edema. She is tender in the right axillary region and around the right lateral chest and flank, but no obvious fluctuance or suggestion of abscess pocket. NEUROLOGIC: The exam was nonfocal. LABORATORY DATA: From my review are as follows: Admission white cell count 19,800, hemoglobin 12.3, hematocrit 37.3, platelet count 256. Venous blood gas at presentation 7.28. Serum sodium 118, potassium 4.6, chloride 79, bicarbonate 22, BUN 32, creatinine 1.3, glucose 659, lactic acid was 3.1; otherwise, liver function tests within normal limits. Urinalysis showed large leukocyte esterase with greater than 182 white cells per high power field. I should mention her admission venous blood gas, the pH was within normal limits. Microbiology: Blood cultures, no growth to date. Chest x-ray was done. I am pulling up the image. I have reviewed the radiologist's interpretation. He describes it as no acute cardiopulmonary findings. ASSESSMENT AND PLAN: We have a middle-aged lady in with uncontrolled diabetes with hyperglycemia and presumably related to the right axillary abscess and cellulitis. From a respiratory standpoint, she is doing relatively well, oxygen will be given as necessary to keep sats greater than or equal to about 92-94%. Aspiration precautions will be maintained. Tobacco cessation has been counseled. We will follow her clinically otherwise. Bronchodilators will be on a p.r.n. basis. From a cardiovascular standpoint, blood pressure is fine. She is actually doing well cardiac hernandez. We will follow her clinically. From a GI and nutritional standpoint, oral nutrition will now be introduced after a swallow evaluation is done. She will be placed on GI prophylaxis and aspiration precautions will be maintained. From a renal standpoint, electrolytes are being followed and corrected. Hyponatremia is improving, certainly some of that related to the hyperglycemia. Inputs and outputs will be monitored. Electrolytes will be corrected as necessary. The phosphorus level will also be corrected. From infectious disease standpoint, we will continue her on Zosyn and vancomycin at this point. I do feel that we might be dealing mainly with a UTI and we should be able to deescalate the anti-infectives once we get culture results and sensitivities. Again, anti-infectives will be deescalated based on results of clinical and microbiologic data. From a [employer] standpoint, the exam is grossly nonfocal. No acute indication for neuro imaging. We will follow her clinically. From a general and hospital healthcare maintenance standpoint, I am going to put her on GI prophylaxis now. She is on DVT prophylaxis in the form of SCDs. I will be ordering some Lovenox. Flu and pneumonia vaccination will be per protocol. Thank you very much for the consult, Dr. Shah. We will follow along and make further recommendations as picture progresses/becomes clearer. She is doing better and can be transferred out of the Intensive Care Unit. JOB# [id number] BEULAH/SUN
[2017-05-28] MEDS: NACL 0.9% 1000 ML 1,000 ML IV SCH (15:24)
[2017-05-28] MEDS: VANCOMYCIN 1,250 MG in NACL 0.9% 250ML 250 ML IV SCH (17:19)
--- NOTE | 2017-05-28 18:29 | Consultation ---
History of Present Illness - Reason for Consult Consult date: 05/28/17 rt flank,rt axcillary,labia, lt thigh abcess Requesting physician: EDSON VINES - History of Present Illness Ms. Ferro is a 56-year-old woman admitted with DKA who is also found to have multiple abscesses throughout. She has a right axillary lesion which was first noticed 4 days ago. She had a right labial lesion, which has been present "for more than 10 years." She also had pain along her right flank with associated redness. The pain was present before a fall during this admission. ID consultation is requested for further treatment recommendations. Past History Past Medical History: diabetes, hypertension, hypothyroidism Past Surgical History: Other (Spinal Fusion) Medications and Allergies Allergies Allergy/AdvReac Type Severity Reaction Status Date / Time codeine Allergy Rash Verified 05/27/17 10:49 Home Medications Medication Instructions Recorded Confirmed Last Taken Type Escitalopram [Lexapro] 10 mg PO DAILY 05/27/17 05/27/17 05/27/17 History Levothyroxine [Synthroid] 50 mcg PO QAM 05/27/17 05/27/17 05/27/17 History Lisinopril [Zestril] 20 mg PO QDAY 05/27/17 05/27/17 05/27/17 History PARoxetine CR (NF) [Paxil (Nf)] 12.5 mg PO QAM 05/27/17 05/27/17 05/27/17 History Rosuvastatin (Nf) [Crestor] 20 mg PO QHS 05/27/17 05/27/17 05/27/17 History Active Meds: Active Medications Acetaminophen (Tylenol) 650 mg PO Q4H PRN PRN Reason: Pain MILD(1-3)/Fever >100.5/ZELAYA Acetaminophen/Hydrocodone Bitart ([place] 5/325) 1 each PO Q4H PRN PRN Reason: Pain, Moderate (4-6) Atorvastatin Calcium (Lipitor) 40 mg PO QHS [facility] Last Admin: 05/27/17 21:35 Dose: 40 mg Bisacodyl (Dulcolax) 10 mg [place] QDAY PRN PRN Reason: Constipation unrelieved by MOM Dextrose (D50w (25gm)) 0 ml IV PRN PRN PRN Reason: Hypoglycemia Dextrose (D50w (25gm)) 0 gm IV PRN PRN PRN Reason: Hypoglycemia Last Admin: 05/27/17 23:55 Dose: 10 gm Enoxaparin Sodium (Lovenox) 40 mg SUB-Q QDAY@1000 [facility] Escitalopram Oxalate (Lexapro) 10 mg PO DAILY [facility] Last Admin: 05/28/17 12:28 Dose: 10 mg Famotidine (Pepcid) 20 mg PO QDAY [facility] Hydromorphone HCl (Dilaudid) 0.5 mg IV Q3H PRN PRN Reason: Pain , Severe (7-10) Last Admin: 05/27/17 21:37 Dose: 0.5 mg Sodium Chloride (Nacl 0.9% 1000 Ml) 1,000 mls @ 125 mls/hr IV DIRECT [facility] Last Admin: 05/27/17 22:55 Dose: 125 mls/hr Piperacillin Sod/Tazobactam Sod (Zosyn/Ns 4.5gm/100ml) 4.5 gm in 100 mls @ 200 mls/hr IV Q8HR [facility] PRN Reason: Protocol Last Admin: 05/28/17 17:16 Dose: 200 mls/hr Vancomycin HCl 1,250 mg/ (Sodium Chloride) 262.5 mls @ 166.667 mls/hr IV Q24H [facility] Last Admin: 05/28/17 17:19 Dose: 166.667 mls/hr Sodium Chloride (Nacl 0.9% 1000 Ml) 1,000 mls @ 75 mls/hr IV DIRECT [facility] Last Admin: 05/28/17 15:24 Dose: 75 mls/hr Insulin Aspart (Novolog) 0 units SUB-Q ACHS [facility] PRN Reason: Protocol Last Admin: 05/28/17 17:12 Dose: 10 units Insulin Human Isoph/Insulin Regular (Novolin 70/30) 25 unit SUB-Q QAMDIAB [facility] Insulin Human Isoph/Insulin Regular (Novolin 70/30) 15 unit SUB-Q QPM [facility] Last Admin: 05/28/17 17:13 Dose: 15 unit Levothyroxine Sodium (Synthroid) 50 mcg PO 0600 [facility] Last Admin: 05/28/17 06:05 Dose: 50 mcg Lisinopril (Zestril) 20 mg PO QDAY [facility] Last Admin: 05/28/17 12:27 Dose: 20 mg Magnesium Hydroxide (Milk Of Magnesia) 30 ml PO Q4H PRN PRN Reason: Constipation Ondansetron HCl (Zofran) 4 mg IV Q8H PRN PRN Reason: N/V unrelieved by Reglan Last Admin: 05/27/17 21:34 Dose: 4 mg Paroxetine HCl (Paxil (Nf)) 12.5 mg PO QDAY [facility] Last Admin: 05/28/17 14:07 Dose: 12.5 mg Sodium Chloride (Sodium Chloride Flush Syringe 10 Ml) 10 ml IV PRN NR Stop: 05/30/17 13:59 Vancomycin HCl (Vancomycin Pharmacy To Dose) 1 each IV PKCONSULT [facility] PRN Reason: Protocol Review of Systems All systems: negative Constitutional: no fever, no chills, no sweats Cardiovascular: no chest pain Gastrointestinal: no abdominal pain, no nausea, no vomiting, no diarrhea Genitourinary Female: no dysuria Integumentary: redness, boils, no pruritis Physical Examination - Constitutional Vitals: Vital Signs Temp Pulse Resp BP Pulse Ox 99.7 F H 108 H 27 H 124/70 98 05/28/17 16:11 05/28/17 15:57 05/28/17 15:57 05/28/17 12:27 05/28/17 15:57 Temperature -Last 24 Hours Temperature 99.7 F Temperature 98.8 F Temperature 99.1 F Temperature 98.8 F Temperature 99.3 F Temperature 98.9 F General appearance: Present: no acute distress, other (non-toxic appearance) - Respiratory Respiratory effort: normal Respiratory: bilateral: CTA - Cardiovascular Rhythm: regular Heart Sounds: Present: S1 & S2 - Extremities Extremities: No edema Extremity abnormal: other (furuncles at right axilla and left thigh) - Abdominal General gastrointestinal: Present: soft, non-tender, non-distended Female genitourinary: Present: other (small furuncle at right labium) - Integumentary Integumentary: Present: erythema (erythema along right flank without vesicles in a dermatomal distribution). Absent: rash - Psychiatric Psychiatric: appropriate mood/affect - Neurologic Neurologic: moves all extremities Results - Labs CBC & Chem 7: 05/27/17 13:00 05/28/17 12:59 Labs: Abnormal lab results 05/27/17 05/27/17 05/27/17 Range/Units 18:02 19:08 19:38 Sodium 130 L (137-145) mmol/L Chloride 94.1 L (98-107) mmol/L Carbon Dioxide (22-30) mmol/L BUN 34 H (7-17) mg/dL Creatinine 1.3 H (0.7-1.2) mg/dL Glucose 223 H (65-100) mg/dL POC Glucose 364 H 313 H (70-105) Lactic Acid (0.7-2.0) mmol/L Calcium 7.9 L (8.4-10.2) mg/dL Phosphorus (2.5-4.5) mg/dL C-Reactive Protein (0.00-1.30) mg/dL 05/27/17 05/27/17 05/27/17 Range/Units 20:07 21:00 21:47 Sodium (137-145) mmol/L Chloride (98-107) mmol/L Carbon Dioxide (22-30) mmol/L BUN (7-17) mg/dL Creatinine (0.7-1.2) mg/dL Glucose (65-100) mg/dL POC Glucose 266 H 171 H 132 H (70-105) Lactic Acid (0.7-2.0) mmol/L Calcium (8.4-10.2) mg/dL Phosphorus (2.5-4.5) mg/dL C-Reactive Protein (0.00-1.30) mg/dL 05/27/17 05/27/17 05/28/17 Range/Units 22:30 23:49 01:11 Sodium 129 L 129 L 124 L (137-145) mmol/L Chloride 94.2 L 93.5 L 92.3 L (98-107) mmol/L Carbon Dioxide 16 L (22-30) mmol/L BUN 34 H 34 H 34 H (7-17) mg/dL Creatinine (0.7-1.2) mg/dL Glucose 104 H 103 H (65-100) mg/dL POC Glucose (70-105) Lactic Acid (0.7-2.0) mmol/L Calcium 8.0 L 7.8 L 7.9 L (8.4-10.2) mg/dL Phosphorus 2.10 L (2.5-4.5) mg/dL C-Reactive Protein (0.00-1.30) mg/dL 05/28/17 05/28/17 05/28/17 Range/Units 01:19 02:00 02:25 Sodium 128 L (137-145) mmol/L Chloride 94.0 L (98-107) mmol/L Carbon Dioxide 19 L (22-30) mmol/L BUN 34 H (7-17) mg/dL Creatinine (0.7-1.2) mg/dL Glucose 136 H (65-100) mg/dL POC Glucose 124 H 111 H (70-105) Lactic Acid (0.7-2.0) mmol/L Calcium 8.1 L (8.4-10.2) mg/dL Phosphorus (2.5-4.5) mg/dL C-Reactive Protein (0.00-1.30) mg/dL 05/28/17 05/28/17 05/28/17 Range/Units 03:06 04:17 04:53 Sodium (137-145) mmol/L Chloride (98-107) mmol/L Carbon Dioxide (22-30) mmol/L BUN (7-17) mg/dL Creatinine (0.7-1.2) mg/dL Glucose (65-100) mg/dL POC Glucose 164 H 181 H 184 H (70-105) Lactic Acid (0.7-2.0) mmol/L Calcium (8.4-10.2) mg/dL Phosphorus (2.5-4.5) mg/dL C-Reactive Protein (0.00-1.30) mg/dL 05/28/17 05/28/17 05/28/17 Range/Units 05:32 05:33 07:56 Sodium 129 L (137-145) mmol/L Chloride 95.3 L (98-107) mmol/L Carbon Dioxide 17 L (22-30) mmol/L BUN 36 H (7-17) mg/dL Creatinine (0.7-1.2) mg/dL Glucose 155 H (65-100) mg/dL POC Glucose 171 H 131 H (70-105) Lactic Acid (0.7-2.0) mmol/L Calcium 7.7 L (8.4-10.2) mg/dL Phosphorus (2.5-4.5) mg/dL C-Reactive Protein (0.00-1.30) mg/dL 05/28/17 05/28/17 05/28/17 Range/Units 08:20 09:04 09:58 Sodium 129 L (137-145) mmol/L Chloride 96.0 L (98-107) mmol/L Carbon Dioxide 18 L (22-30) mmol/L BUN 33 H (7-17) mg/dL Creatinine (0.7-1.2) mg/dL Glucose 124 H (65-100) mg/dL POC Glucose 126 H 142 H (70-105) Lactic Acid (0.7-2.0) mmol/L Calcium 7.9 L (8.4-10.2) mg/dL Phosphorus (2.5-4.5) mg/dL C-Reactive Protein (0.00-1.30) mg/dL 05/28/17 05/28/17 05/28/17 Range/Units 12:13 12:59 14:43 Sodium 128 L (137-145) mmol/L Chloride 94.6 L (98-107) mmol/L Carbon Dioxide 17 L (22-30) mmol/L BUN 32 H (7-17) mg/dL Creatinine (0.7-1.2) mg/dL Glucose 292 H (65-100) mg/dL POC Glucose 295 H (70-105) Lactic Acid 2.90 H* (0.7-2.0) mmol/L Calcium 8.0 L (8.4-10.2) mg/dL Phosphorus (2.5-4.5) mg/dL C-Reactive Protein (0.00-1.30) mg/dL 05/28/17 05/28/17 Range/Units 14:43 15:57 Sodium (137-145) mmol/L Chloride (98-107) mmol/L Carbon Dioxide (22-30) mmol/L BUN (7-17) mg/dL Creatinine (0.7-1.2) mg/dL Glucose (65-100) mg/dL POC Glucose 431 H (70-105) Lactic Acid (0.7-2.0) mmol/L Calcium (8.4-10.2) mg/dL Phosphorus (2.5-4.5) mg/dL C-Reactive Protein 34.10 H (0.00-1.30) mg/dL Microbiology 05/27/17 13:04 Peripheral/Venous Blood Culture - Preliminary NO GROWTH AFTER 24 HOURS 05/27/17 13:00 Peripheral/Venous Blood Culture - Preliminary NO GROWTH AFTER 24 HOURS - Imaging and Cardiology Chest x-ray: report reviewed (no acute cardiopulmonary findings) Assessment and Plan - Patient Problems (1) Abscess Current Visit: Yes Status: Acute Plan to address problem: 1. Multiple boils with patient likely predisposed due to uncontrolled diabetes mellitus. 2. Will screen for HIV infection. 3. Continue Vancomycin IV monotherapy with transition to oral Bactrim or Clindamycin when patient is ready for discharge. (2) Herpes zoster Current Visit: Yes Status: Acute Qualifiers: Herpes zoster complications: H Herpes zoster neurologic complication detail : H Herpes zoster ocular complication detail: H Plan to address problem: 1. Apparent herpes zoster sine herpete. 2. Will start Acyclovir to complete a 7-day course. Oral Acyclovir when patient is ready for discharge. 3. Keep area covered. No other isolation is required.
[2017-05-28] MEDS: DILAUDID IV PRN (21:31)
[2017-05-28 21:38] LABS: BUN/Creatinine Ratio 27.5; Calcium 7.7 mg/dL (8.4-10.2); Chloride 94.9 mmol/L (98-107)
[2017-05-28] MEDS: ZOVIRAX 700 MG in NACL 0.9% 100 ML IV SCH (21:49)
[2017-05-28] MEDS ORDERED: ZOVIRAX IV SCH (22:00)
[2017-05-29 04:51] LABS: HIV-1 Antigen p24 Non React (Non React); HIVR-1/2 Ab Non React (Non React)
[2017-05-29 05:04] LABS: BUN/Creatinine Ratio 28.18; Calcium 8.2 mg/dL (8.4-10.2); Chloride 94.4 mmol/L (98-107); Potassium 4.3 mmol/L (3.6-5.0)
[2017-05-29] MEDS: ZOVIRAX 700 MG in NACL 0.9% 100 ML IV SCH ×3 (05:36→22:24)
[2017-05-29] MEDS: SYNTHROID PO SCH (05:36)
[2017-05-29] MEDS: NORCO 5/325 PO PRN (05:37)
[2017-05-29] MEDS: NACL 0.9% 1000 ML 1,000 ML IV SCH ×2 (05:38→12:39)
[2017-05-29] MEDS ORDERED: NACL 0.9% 500 ML 500 ML IV ONE (08:00)
[2017-05-29] MEDS: NOVOLOG SUB-Q SCH ×4 (08:18→22:25)
[2017-05-29] MEDS: LOVENOX SUB-Q SCH (09:04)
[2017-05-29] MEDS: LEXAPRO PO SCH (09:04)
[2017-05-29] MEDS: PAXIL PO SCH (09:05)
[2017-05-29] MEDS: ZESTRIL PO SCH (09:05)
[2017-05-29] MEDS: PEPCID PO SCH (09:05)
--- NOTE | 2017-05-29 09:38 | Consultation ---
History of Present Illness - Reason for Consult Consult date: 05/29/17 acute renal failure, hyponatremia Requesting physician: DERIC PATINO - History of Present Illness This is a 56yo CF with past medical history of hypertension, type 2 DM diagnosed >12 years ago, insulin dependent, hypothyroidisms, who initially presented to [facility] ER complaining of generalized weakness, right lateral flank wall redness, pain and discomfort. Pt was tachycardic, hypotensive, labs showed evidence of leukocytosis, patient was also found to have severely elevated serum glucose > 650 with low Na at 118 along with elevated BUN/Cr at 32/1.3mg/ dl on admission. Pt was admitted for treatment of possible sepsis due to Rt axillar cellulitis/abscess and for hyperglycemic hyperosmolar state. renal consult is requested for management of hyponatremia and AMMY. Past History Past Medical History: diabetes, hypertension, hypothyroidism Past Surgical History: Other (Spinal Fusion) Medications and Allergies Allergies Allergy/AdvReac Type Severity Reaction Status Date / Time codeine Allergy Rash Verified 05/27/17 10:49 Home Medications Medication Instructions Recorded Confirmed Last Taken Type Escitalopram [Lexapro] 10 mg PO DAILY 05/27/17 05/27/17 05/27/17 History Levothyroxine [Synthroid] 50 mcg PO QAM 05/27/17 05/27/17 05/27/17 History Lisinopril [Zestril] 20 mg PO QDAY 05/27/17 05/27/17 05/27/17 History PARoxetine CR (NF) [Paxil (Nf)] 12.5 mg PO QAM 05/27/17 05/27/17 05/27/17 History Rosuvastatin (Nf) [Crestor] 20 mg PO QHS 05/27/17 05/27/17 05/27/17 History Active Meds: Active Medications Acetaminophen (Tylenol) 650 mg PO Q4H PRN PRN Reason: Pain MILD(1-3)/Fever >100.5/ZELAYA Acetaminophen/Hydrocodone Bitart ([place] 5/325) 1 each PO Q4H PRN PRN Reason: Pain, Moderate (4-6) Last Admin: 05/29/17 05:37 Dose: 1 each Atorvastatin Calcium (Lipitor) 40 mg PO QHS BRITTNI Last Admin: 05/28/17 21:30 Dose: 40 mg Bisacodyl (Dulcolax) 10 mg AR QDAY PRN PRN Reason: Constipation unrelieved by MOM Dextrose (D50w (25gm)) 0 ml IV PRN PRN PRN Reason: Hypoglycemia Dextrose (D50w (25gm)) 0 gm IV PRN PRN PRN Reason: Hypoglycemia Last Admin: 05/27/17 23:55 Dose: 10 gm Enoxaparin Sodium (Lovenox) 40 mg SUB-Q QDAY@1000 [facility] Last Admin: 05/29/17 09:04 Dose: 40 mg Escitalopram Oxalate (Lexapro) 10 mg PO DAILY [facility] Last Admin: 05/29/17 09:04 Dose: 10 mg Famotidine (Pepcid) 20 mg PO QDAY [facility] Last Admin: 05/29/17 09:05 Dose: 20 mg Hydromorphone HCl (Dilaudid) 0.5 mg IV Q3H PRN PRN Reason: Pain , Severe (7-10) Last Admin: 05/28/17 21:31 Dose: 0.5 mg Sodium Chloride (Nacl 0.9% 1000 Ml) 1,000 mls @ 125 mls/hr IV DIRECT [facility] Last Admin: 05/27/17 22:55 Dose: 125 mls/hr Vancomycin HCl 1,250 mg/ (Sodium Chloride) 262.5 mls @ 166.667 mls/hr IV Q24H [facility] Last Admin: 05/28/17 17:19 Dose: 166.667 mls/hr Sodium Chloride (Nacl 0.9% 1000 Ml) 1,000 mls @ 75 mls/hr IV DIRECT [facility] Last Admin: 05/29/17 05:38 Dose: 75 mls/hr Acyclovir 700 mg/ Sodium (Chloride) 114 mls @ 114 mls/hr IV Q8H [facility] Last Admin: 05/29/17 05:36 Dose: 114 mls/hr Insulin Aspart (Novolog) 0 units SUB-Q ACHS [facility] PRN Reason: Protocol Last Admin: 05/29/17 08:18 Dose: 6 units Insulin Human Isoph/Insulin Regular (Novolin 70/30) 25 unit SUB-Q QAMDIAB [facility] Last Admin: 05/29/17 08:18 Dose: 25 unit Insulin Human Isoph/Insulin Regular (Novolin 70/30) 15 unit SUB-Q QPM [facility] Last Admin: 05/28/17 17:13 Dose: 15 unit Levothyroxine Sodium (Synthroid) 50 mcg PO 0600 [facility] Last Admin: 05/29/17 05:36 Dose: 50 mcg Lisinopril (Zestril) 20 mg PO QDAY [facility] Last Admin: 05/29/17 09:05 Dose: Not Given Magnesium Hydroxide (Milk Of Magnesia) 30 ml PO Q4H PRN PRN Reason: Constipation Ondansetron HCl (Zofran) 4 mg IV Q8H PRN PRN Reason: N/V unrelieved by Reglan Last Admin: 05/27/17 21:34 Dose: 4 mg Paroxetine HCl (Paxil (Nf)) 12.5 mg PO QDAY [facility] Last Admin: 05/29/17 09:05 Dose: 12.5 mg Sodium Chloride (Sodium Chloride Flush Syringe 10 Ml) 10 ml IV PRN NR Stop: 05/30/17 13:59 Vancomycin HCl (Vancomycin Pharmacy To Dose) 1 each IV PKCONSULT [facility] PRN Reason: Protocol Review of Systems All systems: negative Constitutional: weakness Integumentary: rash, redness, sores Exam - Vital Signs Vital signs: Vital Signs Temp Pulse Resp BP Pulse Ox 97.9 F 125 H 18 107/55 98 05/27/17 10:38 05/27/17 10:38 05/27/17 10:38 05/27/17 10:38 05/27/17 10:38 - General Appearance General appearance: well-nourished, appears stated age EENT: ATNC, PERRL, mucous membranes moist Neck: Present: neck supple Respiratory: Clear to Ascultation Heart: regular, S1S2 Gastrointestinal: Present: normoactive bowel sounds Integumentary: rash (erythema at right flank ), other (no edema ) Neurologic: no focal deficit, alert and oriented x3, strength 5/5, CN 3-12 intact Psychiatric: mood/affect appropriate, cooperative Results - Lab Results 05/27/17 13:00 05/29/17 03:51 Most recent lab results Calcium 8.2 mg/dL (8.4-10.2) L 05/29/17 03:51 Phosphorus 2.10 mg/dL (2.5-4.5) L 05/27/17 22:30 Magnesium 1.90 mg/dL (1.7-2.3) 05/27/17 22:30 Laboratory Tests 05/27/17 05/27/17 05/27/17 13:00 13:54 13:54 VBG pH 7.347 Calcium 8.5 Phosphorus 3.70 Magnesium 2.10 Total Bilirubin 0.60 AST 14 ALT 13 Alkaline Phosphatase 105 Total Protein 6.9 Albumin 2.7 L Albumin/Globulin Ratio 0.6 Urine Color Urine Turbidity Urine pH Ur Specific [place] Urine Protein Urine Glucose (UA) Urine Ketones Urine Blood Urine Nitrite Urine Bilirubin Urine Urobilinogen Ur Leukocyte Esterase Urine WBC (Auto) Urine RBC (Auto) U Epithel Cells (Auto) Urine Bacteria (Auto) Urine Mucus HIV 1&2 Antibody Rapid HIV P24 Antigen 05/27/17 05/27/17 05/29/17 16:18 Unknown 03:51 VBG pH 7.284 L Calcium Phosphorus Magnesium Total Bilirubin AST ALT Alkaline Phosphatase Total Protein Albumin Albumin/Globulin Ratio Urine Color Yellow Urine Turbidity Cloudy Urine pH 5.0 Ur Specific [place] 1.024 Urine Protein <15 mg/dl Urine Glucose (UA) >=500 Urine Ketones 20 Urine Blood Sm Urine Nitrite Neg Urine Bilirubin Neg Urine Urobilinogen 2.0 Ur Leukocyte Esterase Lg Urine WBC (Auto) > 182.0 H Urine RBC (Auto) 7.0 U Epithel Cells (Auto) 9.0 Urine Bacteria (Auto) 1+ Urine Mucus Few HIV 1&2 Antibody Rapid Non react HIV P24 Antigen Non react Assessment and Plan - Patient Problems (1) Type 2 diabetes mellitus with hyperosmolar nonketotic hyperglycemia Current Visit: Yes Status: Acute Plan to address problem: glucose control as per primary attending, much improved. (2) Acute renal failure Current Visit: Yes Status: Acute Qualifiers: Acute renal failure type: unspecified Qualified Code(s): N17.9 - Acute kidney failure, unspecified Plan to address problem: acute kidney injury due to pre-renal azotemia in the setting of uncontrolled glucose/sepsis. renal function improved after aggressive glucose control/IVF and IV ABX treatment, with Cr at 1.1mg/dl. Cont NS at 75ml/hr Patient remains non-oliguric cont supportive care for AMMY, avoid nephrotoxins, NSAIDs, IV contrast (3) Sepsis Current Visit: Yes Status: Acute Qualifiers: Sepsis type: S Plan to address problem: secondary to herpes zoster/superimposes cellulitis/abscess. Cont antiviral/ABXs as per ID recommendations (4) Herpes zoster Current Visit: Yes Status: Acute Qualifiers: Herpes zoster complications: H Herpes zoster neurologic complication detail : H Herpes zoster ocular complication detail: H Plan to address problem: on acyclovir. follow ID recs (5) Hyponatremia Current Visit: Yes Status: Acute Plan to address problem: combination of pseudohyponatremia in the setting of severe hyperglycemia initially and hypovolemic hyponatremia. pt remains asymptomatic currently with mild hyponatremia. Na at 129 despite adequate glucose control. will cont NS at 75ml/hr for now
[2017-05-29] MEDS ORDERED: LOVENOX SUB-Q SCH (10:00)
[2017-05-29] MEDS ORDERED: LEVOPHED DRIP 4 MG/NS 250 ML 4 MG/250 ML BAG IV SCH (11:00)
--- NOTE | 2017-05-29 11:23 | Progress Note ---
Assessment and Plan Assessment and plan: DKA. Resolved. Septic shock. Continue IV antibiotics. Patient now requiring pressors of Levophed. Wean to maintain MAP greater than 65 Furunculosis. Continue IV antibiotics. ID following. Follow-up culture results. Herpes zoster. Continue acyclovir per ID Diabetes mellitus type 2. Continue sliding scale and long-acting insulin. We will add Lantus at bedtime. Tight glycemic control. Acute renal failure. Nephrology following. Etiology likely secondary to sepsis /ATN/AMMY. Cont supportive care for AMMY, avoid nephrotoxins, NSAIDs, IV contrast Pseudohyponatremia. Follow BMP. UTI. Continue IV antibiotics. DVT prophylaxis. Continue Lovenox. History Interval history: 56-year-old female who was admitted with DKA and sepsis. Patient noted to have multiple abscesses. Patient currently hypotensive requiring pressors. Hospitalist Physical - Constitutional Vitals: Temp Pulse Resp BP Pulse Ox 98.1 F 98 H 18 103/59 95 05/29/17 08:00 05/29/17 10:00 05/29/17 05:37 05/29/17 09:05 05/28/17 19:40 General appearance: Present: no acute distress, other (non-toxic appearance) - EENT Eyes: Present: PERRL, EOM intact ENT: hearing intact, clear oral mucosa, dentition normal - Neck Neck: Present: supple, normal ROM - Respiratory Respiratory effort: normal Respiratory: bilateral: CTA - Cardiovascular Rhythm: regular Heart Sounds: Present: S1 & S2. Absent: gallop, rub - Extremities Extremities: no ischemia, No edema, Full ROM - Abdominal General gastrointestinal: soft, non-tender, non-distended, normal bowel sounds - Integumentary Integumentary: Present: erythema (erythema along right flank without vesicles in a dermatomal distribution,furuncles at right axilla,left thigh and right labium) - Neurologic Neurologic: CNII-XII intact, moves all extremities Results - Labs CBC & Chem 7: 05/27/17 13:00 05/29/17 03:51 Labs: Laboratory Last Values WBC 19.8 K/mm3 (4.5-11.0) H 05/27/17 13:00 RBC 4.30 M/mm3 (3.65-5.03) 05/27/17 13:00 Hgb 12.2 gm/dl (10.1-14.3) 05/27/17 13:00 Hct 37.3 % (30.3-42.9) 05/27/17 13:00 MCV 87 fl (79-97) 05/27/17 13:00 MCH 28 pg (28-32) 05/27/17 13:00 MCHC 33 % (30-34) 05/27/17 13:00 RDW 13.7 % (13.2-15.2) 05/27/17 13:00 Plt Count 256 K/mm3 (140-440) 05/27/17 13:00 Add Manual Diff Complete 05/27/17 13:00 Total Counted 100 05/27/17 13:00 Seg Neutrophils % Woodworker 05/27/17 13:00 Seg Neuts % (Manual) 84.0 % (40.0-70.0) H 05/27/17 13:00 Band Neutrophils % 14.0 % 05/27/17 13:00 Lymphocytes % (Manual) 2.0 % (13.4-35.0) L 05/27/17 13:00 Reactive Lymphs % (Man) 0 % 05/27/17 13:00 Monocytes % (Manual) 0 % (0.0-7.3) 05/27/17 13:00 Eosinophils % (Manual) 0 % (0.0-4.3) 05/27/17 13:00 Basophils % (Manual) 0 % (0.0-1.8) 05/27/17 13:00 Metamyelocytes % 0 % 05/27/17 13:00 Myelocytes % 0 % 05/27/17 13:00 Promyelocytes % 0 % 05/27/17 13:00 Blast Cells % 0 % 05/27/17 13:00 Nucleated RBC % Not Reportable 05/27/17 13:00 Seg Neutrophils # Man 16.6 K/mm3 (1.8-7.7) H 05/27/17 13:00 Band Neutrophils # 2.8 K/mm3 05/27/17 13:00 Lymphocytes # (Manual) 0.4 K/mm3 (1.2-5.4) L 05/27/17 13:00 Abs React Lymphs (Man) 0.0 K/mm3 05/27/17 13:00 Monocytes # (Manual) 0.0 K/mm3 (0.0-0.8) 05/27/17 13:00 Eosinophils # (Manual) 0.0 K/mm3 (0.0-0.4) 05/27/17 13:00 Basophils # (Manual) 0.0 K/mm3 (0.0-0.1) 05/27/17 13:00 Metamyelocytes # 0.0 K/mm3 05/27/17 13:00 Myelocytes # 0.0 K/mm3 05/27/17 13:00 Promyelocytes # 0.0 K/mm3 05/27/17 13:00 Blast Cells # 0.0 K/mm3 05/27/17 13:00 WBC Morphology Not Reportable 05/27/17 13:00 Hypersegmented Neuts Not Reportable 05/27/17 13:00 Hyposegmented Neuts Not Reportable 05/27/17 13:00 Hypogranular Neuts Not Reportable 05/27/17 13:00 Smudge Cells Not Reportable 05/27/17 13:00 Toxic Granulation Not Reportable 05/27/17 13:00 Toxic Vacuolation Not Reportable 05/27/17 13:00 Dohle Bodies Not Reportable 05/27/17 13:00 Pelger-Huet Anomaly Not Reportable 05/27/17 13:00 Aria Rods Not Reportable 05/27/17 13:00 Platelet Estimate Appears normal 05/27/17 13:00 Clumped Platelets Not Reportable 05/27/17 13:00 Plt Clumps, EDTA Not Reportable 05/27/17 13:00 Large Platelets Few 05/27/17 13:00 Giant Platelets Not Reportable 05/27/17 13:00 Platelet Satelliting Not Reportable 05/27/17 13:00 Plt Morphology Comment Not Reportable 05/27/17 13:00 RBC Morphology Normal 05/27/17 13:00 Dimorphic RBCs Not Reportable 05/27/17 13:00 Polychromasia Not Reportable 05/27/17 13:00 Hypochromasia Not Reportable 05/27/17 13:00 Poikilocytosis Not Reportable 05/27/17 13:00 Anisocytosis Not Reportable 05/27/17 13:00 Microcytosis Not Reportable 05/27/17 13:00 Macrocytosis Not Reportable 05/27/17 13:00 Spherocytes Not Reportable 05/27/17 13:00 Pappenheimer Bodies Not Reportable 05/27/17 13:00 Sickle Cells Not Reportable 05/27/17 13:00 Target Cells Not Reportable 05/27/17 13:00 Tear Drop Cells Not Reportable 05/27/17 13:00 Ovalocytes Not Reportable 05/27/17 13:00 Helmet Cells Not Reportable 05/27/17 13:00 [place] Bodies Not Reportable 05/27/17 13:00 [place] Rings Not Reportable 05/27/17 13:00 [place] Cells Not Reportable 05/27/17 13:00 Bite Cells Not Reportable 05/27/17 13:00 Crenated Cell Not Reportable 05/27/17 13:00 Elliptocytes Not Reportable 05/27/17 13:00 Acanthocytes (Spur) Not Reportable 05/27/17 13:00 Rouleaux Not Reportable 05/27/17 13:00 Hemoglobin C Crystals Not Reportable 05/27/17 13:00 Schistocytes Not Reportable 05/27/17 13:00 Malaria parasites Not Reportable 05/27/17 13:00 [place]rick Bodies Not Reportable 05/27/17 13:00 Hem Pathologist Commnt No 05/27/17 13:00 VBG pH 7.284 (7.320-7.420) L 05/27/17 16:18 Sodium 130 mmol/L (137-145) L 05/29/17 03:51 Potassium 4.3 mmol/L (3.6-5.0) 05/29/17 03:51 Chloride 94.4 mmol/L (98-107) L 05/29/17 03:51 Carbon Dioxide 20 mmol/L (22-30) L 05/29/17 03:51 Anion Gap 20 mmol/L 05/29/17 03:51 BUN 31 mg/dL (7-17) H 05/29/17 03:51 Creatinine 1.1 mg/dL (0.7-1.2) 05/29/17 03:51 Estimated GFR 52 ml/min 05/29/17 03:51 BUN/Creatinine Ratio 28.18 % 05/29/17 03:51 Glucose 277 mg/dL (65-100) H 05/29/17 03:51 POC Glucose 264 (70-105) H 05/29/17 07:22 Ketones Quantitative Negative (Negative) 05/27/17 13:54 Lactic Acid 2.90 mmol/L (0.7-2.0) H* 05/28/17 14:43 Calcium 8.2 mg/dL (8.4-10.2) L 05/29/17 03:51 Phosphorus 2.10 mg/dL (2.5-4.5) L 05/27/17 22:30 Magnesium 1.90 mg/dL (1.7-2.3) 05/27/17 22:30 Total Bilirubin 0.60 mg/dL (0.1-1.2) 05/27/17 13:00 AST 14 units/L (5-40) 05/27/17 13:00 ALT 13 units/L (7-56) 05/27/17 13:00 Alkaline Phosphatase 105 units/L (35-129) 05/27/17 13:00 C-Reactive Protein 34.10 mg/dL (0.00-1.30) H 05/28/17 14:43 Total Protein 6.9 g/dL (6.3-8.2) 05/27/17 13:00 Albumin 2.7 g/dL (3.9-5) L 05/27/17 13:00 Albumin/Globulin Ratio 0.6 % 05/27/17 13:00 Urine Color Yellow (Yellow) 05/27/17 Unknown Urine Turbidity Cloudy (Clear) 05/27/17 Unknown Urine pH 5.0 (5.0-7.0) 05/27/17 Unknown Ur Specific [place] 1.024 (1.003-1.030) 05/27/17 Unknown Urine Protein <15 mg/dl mg/dL (Negative) 05/27/17 Unknown Urine Glucose (UA) >=500 mg/dL (Negative) 05/27/17 Unknown Urine Ketones 20 mg/dL (Negative) 05/27/17 Unknown Urine Blood Sm (Negative) 05/27/17 Unknown Urine Nitrite Neg (Negative) 05/27/17 Unknown Urine Bilirubin Neg (Negative) 05/27/17 Unknown Urine Urobilinogen 2.0 mg/dL (<2.0) 05/27/17 Unknown Ur Leukocyte Esterase Lg (Negative) 05/27/17 Unknown Urine WBC (Auto) > 182.0 /HPF (0.0-6.0) H 05/27/17 Unknown Urine RBC (Auto) 7.0 /HPF (0.0-6.0) 05/27/17 Unknown U Epithel Cells (Auto) 9.0 /HPF (0-13.0) 05/27/17 Unknown Urine Bacteria (Auto) 1+ /HPF (Negative) 05/27/17 Unknown Urine Mucus Few /HPF 05/27/17 Unknown HIV 1&2 Antibody Rapid Non react (Non React) 05/29/17 03:51 HIV P24 Antigen Non react (Non React) 05/29/17 03:51
[2017-05-29 11:58] LABS: Basophils % (Auto) 0.2 % (0.0-1.8); Eosinophils % (Auto) 1.2 % (0.0-4.3); Hematocrit 32.5 % (30.3-42.9); Hemoglobin 10.5 gm/dl (10.1-14.3); Mean Corpuscular HGB Conc 33 % (30-34); Mean Corpuscular Hemoglobin 28 pg (28-32); Mean Corpuscular Volume 86 fl (79-97); Platelet Count 245 K/mm3 (140-440); Red Blood Count 3.76 M/mm3 (3.65-5.03); White Blood Count 15.4 K/mm3 (4.5-11.0)
[2017-05-29] MEDS: TYLENOL PO PRN (12:43)
[2017-05-29] MEDS: DILAUDID IV PRN ×2 (12:44→20:38)
--- NOTE | 2017-05-29 13:49 | Progress Note ---
Assessment and Plan - Patient Problems (1) Cellulitis Current Visit: Yes Status: Acute Qualifiers: Site of cellulitis: S Site of cellulitis of extremity: S Site of cellulitis of trunk: S Laterality: L Plan to address problem: - continue empiric AB's - seen by ID - (2) Renal insufficiency Current Visit: Yes Status: Acute (3) Sepsis Current Visit: Yes Status: Acute Qualifiers: Sepsis type: S Plan to address problem: - will aggresively volume resuscitate - wean off levophed for MAP > 60mmHg - continue to treat sepsis - trend lactate and CRP prn (4) DKA (diabetic ketoacidoses) Current Visit: Yes Status: Acute Qualifiers: Diabetes mellitus type: type 2 Diabetes mellitus complication detail: D Plan to address problem: - improved - started on long acting insulin - continue SSI (5) UTI (urinary tract infection) Current Visit: Yes Status: Acute Qualifiers: Urinary tract infection type: acute cystitis Hematuria presence: H Indwelling urinary catheter type: I Encounter type: E Plan to address problem: - growing gram negative rods - will start empiric levaquin as zosyn stopped - follow sensitivities (6) Discharge planning issues Current Visit: Yes Status: Acute Plan to address problem: - remains critically ill on levophed and at risk for further deterioration ...30' CCT Subjective Date of service: 05/29/17 Principal diagnosis: Sepsis Syndrome; Cellulitis Interval history: Seen and examined at bedside; 24 hour events reviewed; nursing and respiratory care staff consulted; no adverse overnight events reported to me; resting peacefully in bed; denies acute chest pains or increased SOB; still with pain in her back; no emesis or overt aspiration Objective Vital Signs - 12hr 05/29/17 05/29/17 05/29/17 04:00 05:37 08:00 Temperature 98.7 F 98.1 F Pulse Rate Respiratory 18 Rate Blood Pressure 05/29/17 05/29/17 05/29/17 09:05 10:00 12:43 Temperature Pulse Rate 90 98 H Respiratory 13 Rate Blood Pressure 103/59 05/29/17 12:44 Temperature Pulse Rate Respiratory 13 Rate Blood Pressure Constitutional: no acute distress, alert Eyes: non-icteric ENT: oropharynx moist Neck: supple, no lymphadenopathy Effort: mildly labored Ascultation: Bilateral: clear Cardiovascular: regular rate and rhythm Gastrointestinal: normoactive bowel sounds, soft, non-tender, non-distended Integumentary: cellulitis, other (erythema to right upper back and axillary region; no graining lesion) Extremities: no cyanosis, no edema, pulses normal, no ischemia or petechiae Neurologic: normal mental status, non-focal exam, pupils equal and round, motor strength normal and Psychiatric: mood appropriate, affect normal CBC and BMP: 05/29/17 11:34 05/29/17 03:51 Abnormal lab findings: Abnormal Labs 05/27/17 05/27/17 05/27/17 16:18 16:18 16:39 WBC Lymph % (Auto) Lymph # Seg Neutrophils % Seg Neutrophils # VBG pH 7.284 L Sodium 126 L D Chloride 87.1 L Carbon Dioxide 21 L BUN 31 H Creatinine Glucose 410 H POC Glucose 334 H Lactic Acid Calcium 8.0 L Phosphorus C-Reactive Protein Urine WBC (Auto) 05/27/17 05/27/17 05/27/17 18:02 19:08 19:38 WBC Lymph % (Auto) Lymph # Seg Neutrophils % Seg Neutrophils # VBG pH Sodium 130 L Chloride 94.1 L Carbon Dioxide BUN 34 H Creatinine 1.3 H Glucose 223 H POC Glucose 364 H 313 H Lactic Acid Calcium 7.9 L Phosphorus C-Reactive Protein Urine WBC (Auto) 05/27/17 05/27/17 05/27/17 20:07 21:00 21:47 WBC Lymph % (Auto) Lymph # Seg Neutrophils % Seg Neutrophils # VBG pH Sodium Chloride Carbon Dioxide BUN Creatinine Glucose POC Glucose 266 H 171 H 132 H Lactic Acid Calcium Phosphorus C-Reactive Protein Urine WBC (Auto) 05/27/17 05/27/17 05/27/17 22:30 23:49 Unknown WBC Lymph % (Auto) Lymph # Seg Neutrophils % Seg Neutrophils # VBG pH Sodium 129 L 129 L Chloride 94.2 L 93.5 L Carbon Dioxide BUN 34 H 34 H Creatinine Glucose 104 H POC Glucose Lactic Acid Calcium 8.0 L 7.8 L Phosphorus 2.10 L C-Reactive Protein Urine WBC (Auto) > 182.0 H 05/28/17 05/28/17 05/28/17 01:11 01:19 02:00 WBC Lymph % (Auto) Lymph # Seg Neutrophils % Seg Neutrophils # VBG pH Sodium 124 L Chloride 92.3 L Carbon Dioxide 16 L BUN 34 H Creatinine Glucose 103 H POC Glucose 124 H 111 H Lactic Acid Calcium 7.9 L Phosphorus C-Reactive Protein Urine WBC (Auto) 05/28/17 05/28/17 05/28/17 02:25 03:06 04:17 WBC Lymph % (Auto) Lymph # Seg Neutrophils % Seg Neutrophils # VBG pH Sodium 128 L Chloride 94.0 L Carbon Dioxide 19 L BUN 34 H Creatinine Glucose 136 H POC Glucose 164 H 181 H Lactic Acid Calcium 8.1 L Phosphorus C-Reactive Protein Urine WBC (Auto) 05/28/17 05/28/17 05/28/17 04:53 05:32 05:33 WBC Lymph % (Auto) Lymph # Seg Neutrophils % Seg Neutrophils # VBG pH Sodium 129 L Chloride 95.3 L Carbon Dioxide 17 L BUN 36 H Creatinine Glucose 155 H POC Glucose 184 H 171 H Lactic Acid Calcium 7.7 L Phosphorus C-Reactive Protein Urine WBC (Auto) 05/28/17 05/28/17 05/28/17 07:56 08:20 09:04 WBC Lymph % (Auto) Lymph # Seg Neutrophils % Seg Neutrophils # VBG pH Sodium 129 L Chloride 96.0 L Carbon Dioxide 18 L BUN 33 H Creatinine Glucose 124 H POC Glucose 131 H 126 H Lactic Acid Calcium 7.9 L Phosphorus C-Reactive Protein Urine WBC (Auto) 05/28/17 05/28/17 05/28/17 09:58 12:13 12:59 WBC Lymph % (Auto) Lymph # Seg Neutrophils % Seg Neutrophils # VBG pH Sodium 128 L Chloride 94.6 L Carbon Dioxide 17 L BUN 32 H Creatinine Glucose 292 H POC Glucose 142 H 295 H Lactic Acid Calcium 8.0 L Phosphorus C-Reactive Protein Urine WBC (Auto) 05/28/17 05/28/17 05/28/17 14:43 14:43 15:57 WBC Lymph % (Auto) Lymph # Seg Neutrophils % Seg Neutrophils # VBG pH Sodium Chloride Carbon Dioxide BUN Creatinine Glucose POC Glucose 431 H Lactic Acid 2.90 H* Calcium Phosphorus C-Reactive Protein 34.10 H Urine WBC (Auto) 05/28/17 05/28/17 05/29/17 20:51 21:13 03:51 WBC Lymph % (Auto) Lymph # Seg Neutrophils % Seg Neutrophils # VBG pH Sodium 130 L 130 L Chloride 94.9 L 94.4 L Carbon Dioxide 21 L 20 L BUN 33 H 31 H Creatinine Glucose 217 H 277 H POC Glucose 241 H Lactic Acid Calcium 7.7 L 8.2 L Phosphorus C-Reactive Protein Urine WBC (Auto) 05/29/17 05/29/17 05/29/17 07:22 11:31 11:34 WBC 15.4 H Lymph % (Auto) 5.2 L Lymph # 0.8 L Seg Neutrophils % 89.7 H Seg Neutrophils # 13.8 H VBG pH Sodium Chloride Carbon Dioxide BUN Creatinine Glucose POC Glucose 264 H 273 H Lactic Acid Calcium Phosphorus C-Reactive Protein Urine WBC (Auto) Chest x-ray: image reviewed
[2017-05-29] MEDS: VANCOMYCIN 1,250 MG in NACL 0.9% 250ML 250 ML IV SCH (14:15)
[2017-05-29] MEDS ORDERED: BUMINATE-5 IV ONE (17:00)
[2017-05-29 17:10] LABS: Bacteria,Urine 1+ /HPF (Negative); Bilirubin,Urine NEG (Negative); Blood,Urine NEG (Negative); Ketones,Urine NEG (Negative); Leukocyte Esterase,Urine LG (Negative); Mucus,Urine FEW /HPF; Nitrite,Urine NEG (Negative)
[2017-05-29] MEDS: LEVAQUIN PO SCH (17:20)
[2017-05-29 17:42] LABS: Sodium, Urine 11 mEq/L
[2017-05-29] MEDS: LEVEMIR SUB-Q SCH (22:25)
[2017-05-30] MEDS: DILAUDID IV PRN ×4 (01:05→19:14)
[2017-05-30 04:13] LABS: Basophils % (Auto) 0.1 % (0.0-1.8); Hematocrit 35.1 % (30.3-42.9); Hemoglobin 11.8 gm/dl (10.1-14.3); Mean Corpuscular HGB Conc 34 % (30-34); Mean Corpuscular Hemoglobin 29 pg (28-32); Mean Corpuscular Volume 85 fl (79-97); Platelet Count 224 K/mm3 (140-440); Red Blood Count 4.11 M/mm3 (3.65-5.03); Red Cell Distribution Width 14.3 % (13.2-15.2); White Blood Count 11.7 K/mm3 (4.5-11.0)
[2017-05-30 04:27] LABS: Anion Gap 16 mmol/L; BUN/Creatinine Ratio 21.11; Blood Urea Nitrogen 19 mg/dL (7-17); Calcium 7.8 mg/dL (8.4-10.2); Carbon Dioxide 20 mmol/L (22-30); Chloride 98.9 mmol/L (98-107); Glucose 192 mg/dL (65-100); Potassium 3.8 mmol/L (3.6-5.0); Sodium 131 mmol/L (137-145)
[2017-05-30] MEDS: SYNTHROID PO SCH (05:54)
[2017-05-30] MEDS: ZOVIRAX 700 MG in NACL 0.9% 100 ML IV SCH ×3 (05:54→23:16)
[2017-05-30] MEDS: NACL 0.9% 1000 ML 1,000 ML IV SCH (05:55)
[2017-05-30] MEDS: TYLENOL PO PRN ×3 (08:42→19:15)
[2017-05-30] MEDS: NOVOLOG SUB-Q SCH ×4 (08:44→23:28)
--- NOTE | 2017-05-30 09:14 | Progress Note ---
Assessment and Plan - Patient Problems (1) Acute kidney injury Current Visit: Yes Status: Acute Plan to address problem: Prerenal azotemia secondary to volume depletion secondary to osmotic diuresis. Kidney function has improved back to normal with volume repletion. (2) Hyponatremia Current Visit: Yes Status: Acute Plan to address problem: Factitious hyponatremia secondary to hyperglycemia and true hyponatremia secondary to volume depletion. Improved with blood sugar control and volume repletion. (3) Type 2 diabetes mellitus with hyperosmolar nonketotic hyperglycemia Current Visit: Yes Status: Acute Plan to address problem: Blood sugar control improved though still suboptimal. Continue management by primary attending (4) UTI (urinary tract infection) Current Visit: Yes Status: Acute Qualifiers: Urinary tract infection type: acute cystitis Hematuria presence: H Indwelling urinary catheter type: I Encounter type: E Plan to address problem: Continue antibiotics (5) Essential (primary) hypertension Current Visit: Yes Status: Acute (6) Sepsis Current Visit: Yes Status: Acute Qualifiers: Sepsis type: S Plan to address problem: Off of Levophed. Continue antibiotics. Follow up final identification and sensitivities (7) Herpes zoster Current Visit: Yes Status: Acute Qualifiers: Herpes zoster complications: H Herpes zoster neurologic complication detail : H Herpes zoster ocular complication detail: H Plan to address problem: Management by primary attending Subjective Date of service: 05/30/17 Principal diagnosis: Sepsis Syndrome; Cellulitis Interval history: Patient seen lying in bed. Still C/o Pain left side. Passing urine only once a day she states. Eating breakfast Objective - Exam Narrative Exam: [Middle-aged female lying in bed] in no acute distress HEENT [normocephalic atraumatic, pupils equal reactive to light, pink, clear oropharynx] Neck [supple, no thyromegaly no jugular venous distention] CVS [S1-S2 regular rate rhythm without murmur, rub or gallop] Chest [clear to auscultation] Abdomen [soft nondistended nontender no organomegaly no bruit bowel sounds present] Extremities [no edema no cyanosis or clubbing] Neuro [awake, alert oriented x3 no gross deficit] - Vital Signs Vital signs: Vital Signs - 12hr 05/29/17 05/29/17 05/29/17 21:15 21:30 21:45 Temperature Pulse Rate 95 H 92 H 93 H Respiratory 12 14 11 L Rate Blood Pressure 114/69 92/50 100/55 O2 Sat by Pulse 95 90 94 Oximetry 05/29/17 05/29/17 05/29/17 22:00 22:15 22:30 Temperature Pulse Rate 92 H 87 91 H Respiratory 14 17 18 Rate Blood Pressure 94/47 93/49 88/50 O2 Sat by Pulse 93 95 95 Oximetry 05/29/17 05/29/17 05/29/17 22:45 23:00 23:15 Temperature Pulse Rate 93 H 95 H 98 H Respiratory 18 22 26 H Rate Blood Pressure 97/48 99/51 101/52 O2 Sat by Pulse 95 95 96 Oximetry 05/29/17 05/29/17 05/29/17 23:30 23:31 23:45 Temperature Pulse Rate 95 H 97 H 91 H Respiratory 20 19 16 Rate Blood Pressure 95/55 95/55 105/51 O2 Sat by Pulse 95 95 95 Oximetry 05/30/17 05/30/17 05/30/17 00:00 00:15 00:31 Temperature 98.6 F Pulse Rate 90 99 H 101 H Respiratory 15 18 15 Rate Blood Pressure 99/55 99/55 120/78 O2 Sat by Pulse 96 97 97 Oximetry 05/30/17 05/30/17 05/30/17 00:45 01:00 01:15 Temperature Pulse Rate 100 H 93 H 93 H Respiratory 13 19 19 Rate Blood Pressure 124/62 115/55 98/56 O2 Sat by Pulse 99 100 96 Oximetry 05/30/17 05/30/17 05/30/17 01:30 01:45 02:00 Temperature Pulse Rate 97 H 103 H 95 H Respiratory 19 12 12 Rate Blood Pressure 115/57 126/70 110/62 O2 Sat by Pulse 94 99 98 Oximetry 05/30/17 05/30/17 05/30/17 02:15 02:30 02:45 Temperature Pulse Rate 95 H 93 H 94 H Respiratory 24 14 18 Rate Blood Pressure 108/54 118/63 108/68 O2 Sat by Pulse 96 97 96 Oximetry 05/30/17 05/30/17 05/30/17 03:00 03:15 03:30 Temperature Pulse Rate 96 H 94 H 104 H Respiratory 22 19 15 Rate Blood Pressure 108/68 113/59 111/68 O2 Sat by Pulse 96 93 96 Oximetry 05/30/17 05/30/17 05/30/17 03:45 04:00 04:15 Temperature 98.7 F Pulse Rate 99 H 94 H Respiratory 10 L 17 Rate Blood Pressure 119/72 128/59 112/56 O2 Sat by Pulse 97 95 Oximetry 05/30/17 05/30/17 05/30/17 04:30 04:45 05:00 Temperature Pulse Rate 99 H 94 H 100 H Respiratory 20 14 21 Rate Blood Pressure 129/58 O2 Sat by Pulse 98 95 94 Oximetry 05/30/17 05/30/17 05/30/17 05:15 05:31 05:45 Temperature Pulse Rate 99 H 100 H 98 H Respiratory 17 22 29 H Rate Blood Pressure O2 Sat by Pulse 96 95 98 Oximetry 05/30/17 05/30/17 05/30/17 06:00 06:15 06:30 Temperature Pulse Rate 103 H 106 H 106 H Respiratory 22 21 19 Rate Blood Pressure 116/59 123/62 127/63 O2 Sat by Pulse 96 96 96 Oximetry 05/30/17 05/30/17 05/30/17 06:45 07:00 07:15 Temperature Pulse Rate 108 H 110 H 106 H Respiratory 32 H 12 23 Rate Blood Pressure 134/62 120/67 125/71 O2 Sat by Pulse 98 98 96 Oximetry 05/30/17 05/30/17 05/30/17 07:30 07:45 08:00 Temperature Pulse Rate 101 H 101 H 101 H Respiratory 17 18 21 Rate Blood Pressure 126/61 108/51 116/57 O2 Sat by Pulse 100 96 96 Oximetry 05/30/17 05/30/17 05/30/17 08:15 08:30 08:45 Temperature Pulse Rate 99 H 97 H 97 H Respiratory 25 H 18 11 L Rate Blood Pressure 117/56 107/53 100/58 O2 Sat by Pulse 94 94 96 Oximetry 05/30/17 09:00 Temperature Pulse Rate 98 H Respiratory 17 Rate Blood Pressure 110/61 O2 Sat by Pulse 94 Oximetry - Lab 05/30/17 03:44 05/30/17 03:44 Most recent lab results Calcium 7.8 mg/dL (8.4-10.2) L 05/30/17 03:44 Phosphorus 2.10 mg/dL (2.5-4.5) L 05/27/17 22:30 Magnesium 1.90 mg/dL (1.7-2.3) 05/27/17 22:30 Urine Creatinine 88.9 mg/dL (0.1-20.0) H 05/29/17 Unknown Urine Sodium 11 mEq/L 05/29/17 Unknown Urine Total Protein 61 mg/dL (5-11.8) H 05/29/17 Unknown
[2017-05-30] MEDS: PEPCID PO SCH (10:22)
[2017-05-30] MEDS: PAXIL PO SCH (10:23)
[2017-05-30] MEDS: LEXAPRO PO SCH (10:23)
[2017-05-30] MEDS: LOVENOX SUB-Q SCH (10:23)
[2017-05-30] MEDS: ZESTRIL PO SCH (10:39)
--- NOTE | 2017-05-30 10:41 | Progress Note ---
Assessment and Plan Assessment and plan: DKA. Resolved. Septic shock. Improved. Continue IV antibiotics. Levophed has been weaned off. Furunculosis. Continue IV antibiotics. ID following. Follow-up culture results. Herpes zoster. Continue acyclovir per ID Diabetes mellitus type 2. Continue sliding scale and long-acting insulin. We will add Lantus at bedtime. Tight glycemic control. Acute renal failure. Nephrology following. Etiology likely secondary to sepsis /ATN/AMMY/volume depletion. Cont supportive care for AMMY, avoid nephrotoxins, NSAIDs, IV contrast Pseudohyponatremia. Follow BMP. UTI. Continue IV antibiotics. Urine culture reveals Escherichia coli that is sensitive to Levaquin DVT prophylaxis. Continue Lovenox. History Interval history: 56-year-old female who was admitted with DKA and sepsis. Patient noted to have multiple abscesses. The patient has been off pressors since 7 AM this morning. Hospitalist Physical - Constitutional Vitals: Temp Pulse Resp BP Pulse Ox 98.7 F 96 H 17 114/51 94 05/30/17 04:00 05/30/17 10:15 05/30/17 10:15 05/30/17 10:15 05/30/17 10:15 General appearance: Present: no acute distress, other (non-toxic appearance) - EENT Eyes: Present: PERRL, EOM intact ENT: hearing intact, clear oral mucosa, dentition normal - Neck Neck: Present: supple, normal ROM - Respiratory Respiratory effort: normal Respiratory: bilateral: CTA - Cardiovascular Rhythm: regular Heart Sounds: Present: S1 & S2. Absent: gallop, rub - Extremities Extremities: no ischemia, No edema, Full ROM - Abdominal General gastrointestinal: soft, non-tender, non-distended, normal bowel sounds - Integumentary Integumentary: Present: clear, warm, dry - Neurologic Neurologic: CNII-XII intact, moves all extremities Results - Labs CBC & Chem 7: 05/30/17 03:44 05/30/17 03:44 Labs: Laboratory Last Values WBC 11.7 K/mm3 (4.5-11.0) H 05/30/17 03:44 RBC 4.11 M/mm3 (3.65-5.03) 05/30/17 03:44 Hgb 11.8 gm/dl (10.1-14.3) 05/30/17 03:44 Hct 35.1 % (30.3-42.9) 05/30/17 03:44 MCV 85 fl (79-97) 05/30/17 03:44 MCH 29 pg (28-32) 05/30/17 03:44 MCHC 34 % (30-34) 05/30/17 03:44 RDW 14.3 % (13.2-15.2) 05/30/17 03:44 Plt Count 224 K/mm3 (140-440) 05/30/17 03:44 Lymph % (Auto) 6.7 % (13.4-35.0) L 05/30/17 03:44 [place] % (Auto) 4.1 % (0.0-7.3) 05/30/17 03:44 Eos % (Auto) 1.0 % (0.0-4.3) 05/30/17 03:44 Baso % (Auto) 0.1 % (0.0-1.8) 05/30/17 03:44 Lymph # 0.8 K/mm3 (1.2-5.4) L 05/30/17 03:44 [place] # 0.5 K/mm3 (0.0-0.8) 05/30/17 03:44 Eos # 0.1 K/mm3 (0.0-0.4) 05/30/17 03:44 Baso # 0.0 K/mm3 (0.0-0.1) 05/30/17 03:44 Add Manual Diff Complete 05/27/17 13:00 Total Counted 100 05/27/17 13:00 Seg Neutrophils % 88.1 % (40.0-70.0) H 05/30/17 03:44 Seg Neuts % (Manual) 84.0 % (40.0-70.0) H 05/27/17 13:00 Band Neutrophils % 14.0 % 05/27/17 13:00 Lymphocytes % (Manual) 2.0 % (13.4-35.0) L 05/27/17 13:00 Reactive Lymphs % (Man) 0 % 05/27/17 13:00 Monocytes % (Manual) 0 % (0.0-7.3) 05/27/17 13:00 Eosinophils % (Manual) 0 % (0.0-4.3) 05/27/17 13:00 Basophils % (Manual) 0 % (0.0-1.8) 05/27/17 13:00 Metamyelocytes % 0 % 05/27/17 13:00 Myelocytes % 0 % 05/27/17 13:00 Promyelocytes % 0 % 05/27/17 13:00 Blast Cells % 0 % 05/27/17 13:00 Nucleated RBC % Not Reportable 05/27/17 13:00 Seg Neutrophils # 10.3 K/mm3 (1.8-7.7) H 05/30/17 03:44 Seg Neutrophils # Man 16.6 K/mm3 (1.8-7.7) H 05/27/17 13:00 Band Neutrophils # 2.8 K/mm3 05/27/17 13:00 Lymphocytes # (Manual) 0.4 K/mm3 (1.2-5.4) L 05/27/17 13:00 Abs React Lymphs (Man) 0.0 K/mm3 05/27/17 13:00 Monocytes # (Manual) 0.0 K/mm3 (0.0-0.8) 05/27/17 13:00 Eosinophils # (Manual) 0.0 K/mm3 (0.0-0.4) 05/27/17 13:00 Basophils # (Manual) 0.0 K/mm3 (0.0-0.1) 05/27/17 13:00 Metamyelocytes # 0.0 K/mm3 05/27/17 13:00 Myelocytes # 0.0 K/mm3 05/27/17 13:00 Promyelocytes # 0.0 K/mm3 05/27/17 13:00 Blast Cells # 0.0 K/mm3 05/27/17 13:00 WBC Morphology Not Reportable 05/27/17 13:00 Hypersegmented Neuts Not Reportable 05/27/17 13:00 Hyposegmented Neuts Not Reportable 05/27/17 13:00 Hypogranular Neuts Not Reportable 05/27/17 13:00 Smudge Cells Not Reportable 05/27/17 13:00 Toxic Granulation Not Reportable 05/27/17 13:00 Toxic Vacuolation Not Reportable 05/27/17 13:00 Dohle Bodies Not Reportable 05/27/17 13:00 Pel[place]-Huet Anomaly Not Reportable 05/27/17 13:00 Aria Rods Not Reportable 05/27/17 13:00 Platelet Estimate Appears normal 05/27/17 13:00 Clumped Platelets Not Reportable 05/27/17 13:00 Plt Clumps, EDTA Not Reportable 05/27/17 13:00 Large Platelets Few 05/27/17 13:00 Giant Platelets Not Reportable 05/27/17 13:00 Platelet Satelliting Not Reportable 05/27/17 13:00 Plt Morphology Comment Not Reportable 05/27/17 13:00 RBC Morphology Normal 05/27/17 13:00 Dimorphic RBCs Not Reportable 05/27/17 13:00 Polychromasia Not Reportable 05/27/17 13:00 Hypochromasia Not Reportable 05/27/17 13:00 Poikilocytosis Not Reportable 05/27/17 13:00 Anisocytosis Not Reportable 05/27/17 13:00 Microcytosis Not Reportable 05/27/17 13:00 Macrocytosis Not Reportable 05/27/17 13:00 Spherocytes Not Reportable 05/27/17 13:00 Pappenheimer Bodies Not Reportable 05/27/17 13:00 Sickle Cells Not Reportable 05/27/17 13:00 Target Cells Not Reportable 05/27/17 13:00 Tear Drop Cells Not Reportable 05/27/17 13:00 Ovalocytes Not Reportable 05/27/17 13:00 Helmet Cells Not Reportable 05/27/17 13:00 [place] Bodies Not Reportable 05/27/17 13:00 [place] Rings Not Reportable 05/27/17 13:00 [place] Cells Not Reportable 05/27/17 13:00 Bite Cells Not Reportable 05/27/17 13:00 Crenated Cell Not Reportable 05/27/17 13:00 Elliptocytes Not Reportable 05/27/17 13:00 Acanthocytes (Spur) Not Reportable 05/27/17 13:00 Rouleaux Not Reportable 05/27/17 13:00 Hemoglobin C Crystals Not Reportable 05/27/17 13:00 Schistocytes Not Reportable 05/27/17 13:00 Malaria parasites Not Reportable 05/27/17 13:00 [place] Bodies Not Reportable 05/27/17 13:00 Hem Pathologist Commnt No 05/27/17 13:00 VBG pH 7.284 (7.320-7.420) L 05/27/17 16:18 Sodium 131 mmol/L (137-145) L 05/30/17 03:44 Potassium 3.8 mmol/L (3.6-5.0) 05/30/17 03:44 Chloride 98.9 mmol/L (98-107) 05/30/17 03:44 Carbon Dioxide 20 mmol/L (22-30) L 05/30/17 03:44 Anion Gap 16 mmol/L 05/30/17 03:44 BUN 19 mg/dL (7-17) H 05/30/17 03:44 Creatinine 0.9 mg/dL (0.7-1.2) 05/30/17 03:44 Estimated GFR > 60 ml/min 05/30/17 03:44 BUN/Creatinine Ratio 21.11 % 05/30/17 03:44 Glucose 192 mg/dL (65-100) H 05/30/17 03:44 POC Glucose 264 (70-105) H 05/29/17 21:49 Ketones Quantitative Negative (Negative) 05/27/17 13:54 Lactic Acid 1.80 mmol/L (0.7-2.0) 05/30/17 03:44 Calcium 7.8 mg/dL (8.4-10.2) L 05/30/17 03:44 Phosphorus 2.10 mg/dL (2.5-4.5) L 05/27/17 22:30 Magnesium 1.90 mg/dL (1.7-2.3) 05/27/17 22:30 Total Bilirubin 0.60 mg/dL (0.1-1.2) 05/27/17 13:00 AST 14 units/L (5-40) 05/27/17 13:00 ALT 13 units/L (7-56) 05/27/17 13:00 Alkaline Phosphatase 105 units/L (35-129) 05/27/17 13:00 C-Reactive Protein 22.40 mg/dL (0.00-1.30) H 05/30/17 03:44 Total Protein 6.9 g/dL (6.3-8.2) 05/27/17 13:00 Albumin 2.7 g/dL (3.9-5) L 05/27/17 13:00 Albumin/Globulin Ratio 0.6 % 05/27/17 13:00 Urine Color Yellow (Yellow) 05/29/17 Unknown Urine Turbidity Slightly-cloudy (Clear) 05/29/17 Unknown Urine pH 6.0 (5.0-7.0) 05/29/17 Unknown Ur Specific [place] 1.016 (1.003-1.030) 05/29/17 Unknown Urine Protein 30 mg/dl mg/dL (Negative) 05/29/17 Unknown Urine Glucose (UA) >=500 mg/dL (Negative) 05/29/17 Unknown Urine Ketones Neg mg/dL (Negative) 05/29/17 Unknown Urine Blood Neg (Negative) 05/29/17 Unknown Urine Nitrite Neg (Negative) 05/29/17 Unknown Urine Bilirubin Neg (Negative) 05/29/17 Unknown Urine Urobilinogen 4.0 mg/dL (<2.0) 05/29/17 Unknown Ur Leukocyte Esterase Lg (Negative) 05/29/17 Unknown Urine WBC (Auto) 106.0 /HPF (0.0-6.0) H 05/29/17 Unknown Urine RBC (Auto) 2.0 /HPF (0.0-6.0) 05/29/17 Unknown U Epithel Cells (Auto) 10.0 /HPF (0-13.0) 05/29/17 Unknown Urine Bacteria (Auto) 1+ /HPF (Negative) 05/29/17 Unknown Urine Mucus Few /HPF 05/29/17 Unknown Urine Osmolality 544 Mosm/kg 05/29/17 Unknown Urine Creatinine 88.9 mg/dL (0.1-20.0) H 05/29/17 Unknown Urine Microalbumin < 1.2 mg/dL (0.1-34.0) 05/29/17 Unknown Microalb/Creat Ratio 13.4 ug/mg 05/29/17 Unknown Urine Sodium 11 mEq/L 05/29/17 Unknown Urine Total Protein 61 mg/dL (5-11.8) H 05/29/17 Unknown HIV 1&2 Antibody Rapid Non react (Non React) 05/29/17 03:51 HIV P24 Antigen Non react (Non React) 05/29/17 03:51
--- NOTE | 2017-05-30 12:04 | Progress Note ---
Assessment and Plan - Patient Problems (1) Abscess Current Visit: Yes Status: Acute Plan to address problem: 1. Continue Vancomycin while inpatient and then to oral therapy (Bactrim and Clindamycin) at discharge. 2. Chlorhexidine bath may also be beneficial while patient is in hospital. 3. I will sign off. Please call again if there are additional questions or concerns. (2) Herpes zoster Current Visit: Yes Status: Acute Qualifiers: Herpes zoster complications: without complications Herpes zoster neurologic complication detail: H Herpes zoster ocular complication detail: H Qualified Code(s): B02.9 - Zoster without complications Plan to address problem: 1. Okay to change to oral Acyclovir 800mg PO tid to complete a total of 7 days (through 2016). 2. HIV screening is negative. Subjective Date of service: 05/30/17 Principal diagnosis: Sepsis Syndrome; Cellulitis Interval history: No new complaints. Objective - Constitutional Vitals: Vital Signs Temp Pulse Resp BP Pulse Ox 98.3 F 89 18 100/56 96 05/30/17 11:14 05/30/17 11:00 05/30/17 11:00 05/30/17 11:00 05/30/17 11:00 Temperature -Last 24 Hours Temperature 98.3 F Temperature 99.4 F Temperature 98.7 F Temperature 98.6 F Temperature 98.6 F Temperature 98.8 F General appearance: Present: no acute distress, other (non-toxic appearance) - Respiratory Respiratory effort: normal Respiratory: bilateral: CTA - Cardiovascular Rhythm: regular Heart Sounds: Present: S1 & S2 Extremities: No edema - Gastrointestinal General gastrointestinal: Present: soft, non-distended - Integumentary Integumentary: erythema (decreased erythema of furuncles at right axilla and labium), rash (right flank erythema remains in a dermatomal distribution, no vesicles are seen) - Psychiatric Psychiatric: appropriate mood/affect - Labs CBC & Chem 7: 05/30/17 03:44 05/30/17 03:44 Labs: Abnormal lab results 05/29/17 05/29/17 05/29/17 Range/Units 11:31 16:31 21:49 WBC (4.5-11.0) K/mm3 Lymph % (Auto) (13.4-35.0) % Lymph # (1.2-5.4) K/mm3 Seg Neutrophils % (40.0-70.0) % Seg Neutrophils # (1.8-7.7) K/mm3 Sodium (137-145) mmol/L Carbon Dioxide (22-30) mmol/L BUN (7-17) mg/dL Glucose (65-100) mg/dL POC Glucose 273 H 328 H 264 H (70-105) Calcium (8.4-10.2) mg/dL C-Reactive Protein (0.00-1.30) mg/dL Urine WBC (Auto) (0.0-6.0) /HPF Urine Creatinine (0.1-20.0) mg/dL Urine Total Protein (5-11.8) mg/dL 05/29/17 05/29/17 05/30/17 Range/Units Unknown Unknown 03:44 WBC 11.7 H (4.5-11.0) K/mm3 Lymph % (Auto) 6.7 L (13.4-35.0) % Lymph # 0.8 L (1.2-5.4) K/mm3 Seg Neutrophils % 88.1 H (40.0-70.0) % Seg Neutrophils # 10.3 H (1.8-7.7) K/mm3 Sodium (137-145) mmol/L Carbon Dioxide (22-30) mmol/L BUN (7-17) mg/dL Glucose (65-100) mg/dL POC Glucose (70-105) Calcium (8.4-10.2) mg/dL C-Reactive Protein (0.00-1.30) mg/dL Urine WBC (Auto) 106.0 H (0.0-6.0) /HPF Urine Creatinine 88.9 H (0.1-20.0) mg/dL Urine Total Protein 61 H (5-11.8) mg/dL 05/30/17 05/30/17 Range/Units 03:44 07:41 WBC (4.5-11.0) K/mm3 Lymph % (Auto) (13.4-35.0) % Lymph # (1.2-5.4) K/mm3 Seg Neutrophils % (40.0-70.0) % Seg Neutrophils # (1.8-7.7) K/mm3 Sodium 131 L (137-145) mmol/L Carbon Dioxide 20 L (22-30) mmol/L BUN 19 H (7-17) mg/dL Glucose 192 H (65-100) mg/dL POC Glucose 197 H (70-105) Calcium 7.8 L (8.4-10.2) mg/dL C-Reactive Protein 22.40 H (0.00-1.30) mg/dL Urine WBC (Auto) (0.0-6.0) /HPF Urine Creatinine (0.1-20.0) mg/dL Urine Total Protein (5-11.8) mg/dL Microbiology 05/28/17 09:35 Urine,Catheterized - Indwelling Catheter Urine Culture - Final Escherichia Coli 05/27/17 13:04 Peripheral/Venous Blood Culture - Preliminary NO GROWTH AFTER 48 HOURS 05/27/17 13:00 Peripheral/Venous Blood Culture - Preliminary NO GROWTH AFTER 48 HOURS
--- NOTE | 2017-05-30 12:43 | Progress Note ---
Assessment and Plan - Patient Problems (1) Cellulitis Current Visit: Yes Status: Acute Qualifiers: Site of cellulitis: S Site of cellulitis of extremity: S Site of cellulitis of trunk: S Laterality: L (2) Renal insufficiency Current Visit: Yes Status: Acute (3) Sepsis Current Visit: Yes Status: Acute Qualifiers: Sepsis type: S (4) DKA (diabetic ketoacidoses) Current Visit: Yes Status: Acute Qualifiers: Diabetes mellitus type: type 2 Diabetes mellitus complication detail: D (5) UTI (urinary tract infection) Current Visit: Yes Status: Acute Qualifiers: Urinary tract infection type: acute cystitis Hematuria presence: H Indwelling urinary catheter type: I Encounter type: E (6) Discharge planning issues Current Visit: Yes Status: Acute Subjective Date of service: 05/30/17 Principal diagnosis: Sepsis Syndrome; Cellulitis Interval history: Seen and examined at bedside; 24 hour events reviewed; nursing and respiratory care staff consulted; no adverse overnight events reported to me; Objective Vital Signs - 12hr 05/30/17 05/30/17 05/30/17 00:45 01:00 01:15 Temperature Pulse Rate 100 H 93 H 93 H Respiratory 13 19 19 Rate Blood Pressure 124/62 115/55 98/56 O2 Sat by Pulse 99 100 96 Oximetry 05/30/17 05/30/17 05/30/17 01:30 01:45 02:00 Temperature Pulse Rate 97 H 103 H 95 H Respiratory 19 12 12 Rate Blood Pressure 115/57 126/70 110/62 O2 Sat by Pulse 94 99 98 Oximetry 05/30/17 05/30/17 05/30/17 02:15 02:30 02:45 Temperature Pulse Rate 95 H 93 H 94 H Respiratory 24 14 18 Rate Blood Pressure 108/54 118/63 108/68 O2 Sat by Pulse 96 97 96 Oximetry 05/30/17 05/30/17 05/30/17 03:00 03:15 03:30 Temperature Pulse Rate 96 H 94 H 104 H Respiratory 22 19 15 Rate Blood Pressure 108/68 113/59 111/68 O2 Sat by Pulse 96 93 96 Oximetry 05/30/17 05/30/17 05/30/17 03:45 04:00 04:15 Temperature 98.7 F Pulse Rate 99 H 94 H Respiratory 10 L 17 Rate Blood Pressure 119/72 128/59 112/56 O2 Sat by Pulse 97 95 Oximetry 05/30/17 05/30/17 05/30/17 04:30 04:45 05:00 Temperature Pulse Rate 99 H 94 H 100 H Respiratory 20 14 21 Rate Blood Pressure 129/58 O2 Sat by Pulse 98 95 94 Oximetry 05/30/17 05/30/17 05/30/17 05:15 05:31 05:45 Temperature Pulse Rate 99 H 100 H 98 H Respiratory 17 22 29 H Rate Blood Pressure O2 Sat by Pulse 96 95 98 Oximetry 05/30/17 05/30/17 05/30/17 06:00 06:15 06:30 Temperature Pulse Rate 103 H 106 H 106 H Respiratory 22 21 19 Rate Blood Pressure 116/59 123/62 127/63 O2 Sat by Pulse 96 96 96 Oximetry 05/30/17 05/30/17 05/30/17 06:45 07:00 07:15 Temperature Pulse Rate 108 H 110 H 106 H Respiratory 32 H 12 23 Rate Blood Pressure 134/62 120/67 125/71 O2 Sat by Pulse 98 98 96 Oximetry 05/30/17 05/30/17 05/30/17 07:30 07:45 08:00 Temperature 99.4 F Pulse Rate 101 H 101 H 101 H Respiratory 17 18 21 Rate Blood Pressure 126/61 108/51 116/57 O2 Sat by Pulse 100 96 96 Oximetry 05/30/17 05/30/17 05/30/17 08:15 08:30 08:45 Temperature Pulse Rate 99 H 97 H 97 H Respiratory 25 H 18 11 L Rate Blood Pressure 117/56 107/53 100/58 O2 Sat by Pulse 94 94 96 Oximetry 05/30/17 05/30/17 05/30/17 09:00 09:15 09:31 Temperature Pulse Rate 98 H 97 H 105 H Respiratory 17 19 14 Rate Blood Pressure 110/61 110/66 110/66 O2 Sat by Pulse 94 96 95 Oximetry 05/30/17 05/30/17 05/30/17 09:45 10:00 10:15 Temperature Pulse Rate 94 H 97 H 96 H Respiratory 20 20 17 Rate Blood Pressure 91/37 102/40 114/51 O2 Sat by Pulse 95 97 94 Oximetry 05/30/17 05/30/17 05/30/17 10:30 10:45 11:00 Temperature Pulse Rate 94 H 88 89 Respiratory 23 16 18 Rate Blood Pressure 127/43 101/50 100/56 O2 Sat by Pulse 94 96 96 Oximetry 05/30/17 05/30/17 05/30/17 11:14 11:15 11:31 Temperature 98.3 F Pulse Rate 90 85 Respiratory 12 16 Rate Blood Pressure 100/56 100/56 O2 Sat by Pulse 98 96 Oximetry 05/30/17 05/30/17 05/30/17 11:45 12:00 12:15 Temperature Pulse Rate 89 87 84 Respiratory 12 16 16 Rate Blood Pressure 100/56 102/61 102/61 O2 Sat by Pulse 97 94 97 Oximetry 05/30/17 12:31 Temperature Pulse Rate 86 Respiratory 15 Rate Blood Pressure 102/61 O2 Sat by Pulse 96 Oximetry Constitutional: no acute distress, alert Eyes: non-icteric ENT: oropharynx moist Neck: supple, no lymphadenopathy Effort: mildly labored Ascultation: Bilateral: clear Cardiovascular: regular rate and rhythm Gastrointestinal: normoactive bowel sounds, soft, non-tender, non-distended Integumentary: cellulitis, other (erythema to right upper back and axillary region; no graining lesion) Extremities: no cyanosis, no edema, pulses normal, no ischemia or petechiae Neurologic: normal mental status, non-focal exam, pupils equal and round, motor strength normal and Psychiatric: mood appropriate, affect normal CBC and BMP: 05/30/17 03:44 05/30/17 03:44 Abnormal lab findings: Abnormal Labs 05/27/17 05/27/17 05/27/17 16:18 16:18 16:39 WBC Lymph % (Auto) Lymph # Seg Neutrophils % Seg Neutrophils # VBG pH 7.284 L Sodium 126 L D Chloride 87.1 L Carbon Dioxide 21 L BUN 31 H Creatinine Glucose 410 H POC Glucose 334 H Lactic Acid Calcium 8.0 L Phosphorus C-Reactive Protein Urine WBC (Auto) Urine Creatinine Urine Total Protein 05/27/17 05/27/17 05/27/17 18:02 19:08 19:38 WBC Lymph % (Auto) Lymph # Seg Neutrophils % Seg Neutrophils # VBG pH Sodium 130 L Chloride 94.1 L Carbon Dioxide BUN 34 H Creatinine 1.3 H Glucose 223 H POC Glucose 364 H 313 H Lactic Acid Calcium 7.9 L Phosphorus C-Reactive Protein Urine WBC (Auto) Urine Creatinine Urine Total Protein 05/27/17 05/27/17 05/27/17 20:07 21:00 21:47 WBC Lymph % (Auto) Lymph # Seg Neutrophils % Seg Neutrophils # VBG pH Sodium Chloride Carbon Dioxide BUN Creatinine Glucose POC Glucose 266 H 171 H 132 H Lactic Acid Calcium Phosphorus C-Reactive Protein Urine WBC (Auto) Urine Creatinine Urine Total Protein 05/27/17 05/27/17 05/27/17 22:30 23:49 Unknown WBC Lymph % (Auto) Lymph # Seg Neutrophils % Seg Neutrophils # VBG pH Sodium 129 L 129 L Chloride 94.2 L 93.5 L Carbon Dioxide BUN 34 H 34 H Creatinine Glucose 104 H POC Glucose Lactic Acid Calcium 8.0 L 7.8 L Phosphorus 2.10 L C-Reactive Protein Urine WBC (Auto) > 182.0 H Urine Creatinine Urine Total Protein 05/28/17 05/28/17 05/28/17 01:11 01:19 02:00 WBC Lymph % (Auto) Lymph # Seg Neutrophils % Seg Neutrophils # VBG pH Sodium 124 L Chloride 92.3 L Carbon Dioxide 16 L BUN 34 H Creatinine Glucose 103 H POC Glucose 124 H 111 H Lactic Acid Calcium 7.9 L Phosphorus C-Reactive Protein Urine WBC (Auto) Urine Creatinine Urine Total Protein 05/28/17 05/28/17 05/28/17 02:25 03:06 04:17 WBC Lymph % (Auto) Lymph # Seg Neutrophils % Seg Neutrophils # VBG pH Sodium 128 L Chloride 94.0 L Carbon Dioxide 19 L BUN 34 H Creatinine Glucose 136 H POC Glucose 164 H 181 H Lactic Acid Calcium 8.1 L Phosphorus C-Reactive Protein Urine WBC (Auto) Urine Creatinine Urine Total Protein 05/28/17 05/28/17 05/28/17 04:53 05:32 05:33 WBC Lymph % (Auto) Lymph # Seg Neutrophils % Seg Neutrophils # VBG pH Sodium 129 L Chloride 95.3 L Carbon Dioxide 17 L BUN 36 H Creatinine Glucose 155 H POC Glucose 184 H 171 H Lactic Acid Calcium 7.7 L Phosphorus C-Reactive Protein Urine WBC (Auto) Urine Creatinine Urine Total Protein 05/28/17 05/28/17 05/28/17 07:56 08:20 09:04 WBC Lymph % (Auto) Lymph # Seg Neutrophils % Seg Neutrophils # VBG pH Sodium 129 L Chloride 96.0 L Carbon Dioxide 18 L BUN 33 H Creatinine Glucose 124 H POC Glucose 131 H 126 H Lactic Acid Calcium 7.9 L Phosphorus C-Reactive Protein Urine WBC (Auto) Urine Creatinine Urine Total Protein 05/28/17 05/28/17 05/28/17 09:58 12:13 12:59 WBC Lymph % (Auto) Lymph # Seg Neutrophils % Seg Neutrophils # VBG pH Sodium 128 L Chloride 94.6 L Carbon Dioxide 17 L BUN 32 H Creatinine Glucose 292 H POC Glucose 142 H 295 H Lactic Acid Calcium 8.0 L Phosphorus C-Reactive Protein Urine WBC (Auto) Urine Creatinine Urine Total Protein 05/28/17 05/28/17 05/28/17 14:43 14:43 15:57 WBC Lymph % (Auto) Lymph # Seg Neutrophils % Seg Neutrophils # VBG pH Sodium Chloride Carbon Dioxide BUN Creatinine Glucose POC Glucose 431 H Lactic Acid 2.90 H* Calcium Phosphorus C-Reactive Protein 34.10 H Urine WBC (Auto) Urine Creatinine Urine Total Protein 05/28/17 05/28/17 05/29/17 20:51 21:13 03:51 WBC Lymph % (Auto) Lymph # Seg Neutrophils % Seg Neutrophils # VBG pH Sodium 130 L 130 L Chloride 94.9 L 94.4 L Carbon Dioxide 21 L 20 L BUN 33 H 31 H Creatinine Glucose 217 H 277 H POC Glucose 241 H Lactic Acid Calcium 7.7 L 8.2 L Phosphorus C-Reactive Protein Urine WBC (Auto) Urine Creatinine Urine Total Protein 05/29/17 05/29/17 05/29/17 07:22 11:31 11:34 WBC 15.4 H Lymph % (Auto) 5.2 L Lymph # 0.8 L Seg Neutrophils % 89.7 H Seg Neutrophils # 13.8 H VBG pH Sodium Chloride Carbon Dioxide BUN Creatinine Glucose POC Glucose 264 H 273 H Lactic Acid Calcium Phosphorus C-Reactive Protein Urine WBC (Auto) Urine Creatinine Urine Total Protein 05/29/17 05/29/17 05/29/17 16:31 21:49 Unknown WBC Lymph % (Auto) Lymph # Seg Neutrophils % Seg Neutrophils # VBG pH Sodium Chloride Carbon Dioxide BUN Creatinine Glucose POC Glucose 328 H 264 H Lactic Acid Calcium Phosphorus C-Reactive Protein Urine WBC (Auto) 106.0 H Urine Creatinine Urine Total Protein 05/29/17 05/30/17 05/30/17 Unknown 03:44 03:44 WBC 11.7 H Lymph % (Auto) 6.7 L Lymph # 0.8 L Seg Neutrophils % 88.1 H Seg Neutrophils # 10.3 H VBG pH Sodium 131 L Chloride Carbon Dioxide 20 L BUN 19 H Creatinine Glucose 192 H POC Glucose Lactic Acid Calcium 7.8 L Phosphorus C-Reactive Protein 22.40 H Urine WBC (Auto) Urine Creatinine 88.9 H Urine Total Protein 61 H 05/30/ 07:41 WBC Lymph % (Auto) Lymph # Seg Neutrophils % Seg Neutrophils # VBG pH Sodium Chloride Carbon Dioxide BUN Creatinine Glucose POC Glucose 197 H Lactic Acid Calcium Phosphorus C-Reactive Protein Urine WBC (Auto) Urine Creatinine Urine Total Protein
--- NOTE | 2017-05-30 13:40 | Consultation ---
HISTORY OF PRESENT ILLNESS: This patient was admitted by Dr. Aly Raymond because of pain to the flank on the right side and posteriorly with discomfort. She also complains of generalized weakness. She is a known case of diabetes mellitus. She could not, from what she told me, control her sugar. She had no fevers and no chills. Along with that she had evidence of an abscess in the labia majora on the right side. Her blood sugar upon admission was 659, the sodium was very low at 118. I was asked to evaluate her from a general surgical point of view. The patient has had in and out. PHYSICAL EXAMINATION: GENERAL: Apparently from examining her, she looked thin, slim, white female. She is in no distress. According to our nursing staff, she looks much better now. HEAD AND NECK: Negative. BREASTS: Symmetric. No signs of specific masses. HEART: Sound normal. ABDOMEN: Protuberant, soft, benign. Evidence of redness over the posterior aspect of the upper chest on the right side and below the axilla on the right side as well. As to the vaginal aspect, there was an abscess there that is about 1 x 1 cm. I saw it yesterday when I examined her and today there is almost complete improvement in that with very minimal redness. There is no evidence of any purulent formation. EXTREMITIES: Showed no significant edema. IMPRESSION: 1. Multiple inflammatory areas in the back, right axilla and the labial area. 2. Diabetes mellitus. This could not be controlled. I am going to leave that for the Internal Medicine. Already infectious disease, Dr. Sheppard is seeing her and the patient at the present time is on Levaquin and she is on insulin subcutaneously. The treatment of this entity is just continued observation, good control of her sugar and local care to the labial area which already, to me, about a good 80% improved. I am going to see her again tomorrow. JOB# [id number] CONSTANCE/SUN
[2017-05-30] MEDS: PROAMATINE PO SCH ×2 (13:50→22:05)
[2017-05-30] MEDS: VANCOMYCIN 1,250 MG in NACL 0.9% 250ML 250 ML IV SCH (13:50)
--- NOTE | 2017-05-30 16:10 | Progress Note ---
Subjective Patient Reports: Positive: feels better, pain is less Narrative: feels much better , no hyperemia , complete healing of labia will see PRN , Objective Vital Signs - 12hr 05/30/17 05/30/17 05/30/17 04:15 04:30 04:45 Temperature Pulse Rate 94 H 99 H 94 H Respiratory 17 20 14 Rate Blood Pressure 112/56 129/58 O2 Sat by Pulse 95 98 95 Oximetry 05/30/17 05/30/17 05/30/17 05:00 05:15 05:31 Temperature Pulse Rate 100 H 99 H 100 H Respiratory 21 17 22 Rate Blood Pressure O2 Sat by Pulse 94 96 95 Oximetry 05/30/17 05/30/17 05/30/17 05:45 06:00 06:15 Temperature Pulse Rate 98 H 103 H 106 H Respiratory 29 H 22 21 Rate Blood Pressure 116/59 123/62 O2 Sat by Pulse 98 96 96 Oximetry 05/30/17 05/30/17 05/30/17 06:30 06:45 07:00 Temperature Pulse Rate 106 H 108 H 110 H Respiratory 19 32 H 12 Rate Blood Pressure 127/63 134/62 120/67 O2 Sat by Pulse 96 98 98 Oximetry 05/30/17 05/30/17 05/30/17 07:15 07:30 07:45 Temperature Pulse Rate 106 H 101 H 101 H Respiratory 23 17 18 Rate Blood Pressure 125/71 126/61 108/51 O2 Sat by Pulse 96 100 96 Oximetry 05/30/17 05/30/17 05/30/17 08:00 08:15 08:30 Temperature 99.4 F Pulse Rate 101 H 99 H 97 H Respiratory 21 25 H 18 Rate Blood Pressure 116/57 117/56 107/53 O2 Sat by Pulse 96 94 94 Oximetry 05/30/17 05/30/17 05/30/17 08:45 09:00 09:15 Temperature Pulse Rate 97 H 98 H 97 H Respiratory 11 L 17 19 Rate Blood Pressure 100/58 110/61 110/66 O2 Sat by Pulse 96 94 96 Oximetry 05/30/17 05/30/17 05/30/17 09:31 09:45 10:00 Temperature Pulse Rate 105 H 94 H 97 H Respiratory 14 20 20 Rate Blood Pressure 110/66 91/37 102/40 O2 Sat by Pulse 95 95 97 Oximetry 08/1405/30/17 05/30/17 10:15 10:30 10:45 Temperature Pulse Rate 96 H 94 H 88 Respiratory 17 23 16 Rate Blood Pressure 114/51 127/43 101/50 O2 Sat by Pulse 94 94 96 Oximetry 05/30/17 05/30/17 05/30/17 11:00 11:14 11:15 Temperature 98.3 F Pulse Rate 89 90 Respiratory 18 12 Rate Blood Pressure 100/56 100/56 O2 Sat by Pulse 96 98 Oximetry 05/30/17 05/30/17 05/30/17 11:31 11:45 12:00 Temperature Pulse Rate 85 89 87 Respiratory 16 12 16 Rate Blood Pressure 100/56 100/56 102/61 O2 Sat by Pulse 96 97 94 Oximetry 05/30/17 05/30/17 05/30/17 12:15 12:31 12:45 Temperature Pulse Rate 84 86 91 H Respiratory 16 15 19 Rate Blood Pressure 102/61 102/61 102/61 O2 Sat by Pulse 97 96 98 Oximetry 05/30/17 05/30/17 05/30/17 13:00 13:15 13:31 Temperature Pulse Rate 86 84 82 Respiratory 22 24 24 Rate Blood Pressure 113/61 113/61 113/61 O2 Sat by Pulse 99 98 99 Oximetry 05/30/17 05/30/17 05/30/17 13:45 13:50 13:51 Temperature Pulse Rate 86 Respiratory 19 21 21 Rate Blood Pressure 113/61 O2 Sat by Pulse 99 Oximetry - Labs 05/30/17 03:44 05/30/17 03:44 Diabetes panel 05/30/17 Range/Units 03:44 Sodium 131 L (137-145) mmol/L Potassium 3.8 (3.6-5.0) mmol/L Chloride 98.9 (98-107) mmol/L Carbon Dioxide 20 L (22-30) mmol/L BUN 19 H (7-17) mg/dL Creatinine 0.9 (0.7-1.2) mg/dL Glucose 192 H (65-100) mg/dL Calcium 7.8 L (8.4-10.2) mg/dL Calcium panel 05/30/17 Range/Units 03:44 Calcium 7.8 L (8.4-10.2) mg/dL Pituitary panel 05/30/17 Range/Units 03:44 Sodium 131 L (137-145) mmol/L Potassium 3.8 (3.6-5.0) mmol/L Chloride 98.9 (98-107) mmol/L Carbon Dioxide 20 L (22-30) mmol/L BUN 19 H (7-17) mg/dL Creatinine 0.9 (0.7-1.2) mg/dL Glucose 192 H (65-100) mg/dL Calcium 7.8 L (8.4-10.2) mg/dL Adrenal panel 05/30/17 Range/Units 03:44 Sodium 131 L (137-145) mmol/L Potassium 3.8 (3.6-5.0) mmol/L Chloride 98.9 (98-107) mmol/L Carbon Dioxide 20 L (22-30) mmol/L BUN 19 H (7-17) mg/dL Creatinine 0.9 (0.7-1.2) mg/dL Glucose 192 H (65-100) mg/dL Calcium 7.8 L (8.4-10.2) mg/dL
[2017-05-30] MEDS: LEVAQUIN PO SCH (17:03)
[2017-05-30] MEDS: NORCO 5/325 PO PRN (23:16)
[2017-05-30] MEDS: LEVEMIR SUB-Q SCH (23:17)
[2017-05-31 05:18] LABS: Basophils % (Auto) 0.2 % (0.0-1.8); Hematocrit 30.6 % (30.3-42.9); Hemoglobin 10.5 gm/dl (10.1-14.3); Mean Corpuscular HGB Conc 34 % (30-34); Mean Corpuscular Hemoglobin 29 pg (28-32); Mean Corpuscular Volume 85 fl (79-97); Platelet Count 235 K/mm3 (140-440); Red Cell Distribution Width 14.1 % (13.2-15.2); White Blood Count 9.5 K/mm3 (4.5-11.0)
[2017-05-31 05:34] LABS: Anion Gap 18 mmol/L; BUN/Creatinine Ratio 18.57; Blood Urea Nitrogen 13 mg/dL (7-17); Carbon Dioxide 22 mmol/L (22-30); Chloride 101.2 mmol/L (98-107); Glucose 103 mg/dL (65-100); Potassium 4.1 mmol/L (3.6-5.0); Sodium 137 mmol/L (137-145)
[2017-05-31] MEDS: SYNTHROID PO SCH (06:25)
[2017-05-31] MEDS: PROAMATINE PO SCH ×3 (06:35→22:14)
--- NOTE | 2017-05-31 07:45 | Progress Note ---
Assessment and Plan - Patient Problems (1) Acute kidney injury Current Visit: Yes Status: Acute Plan to address problem: Prerenal azotemia secondary to volume depletion secondary to osmotic diuresis. Kidney function has improved back to normal with volume repletion. Sign off. Reconsult if needed (2) Hyponatremia Current Visit: Yes Status: Acute Plan to address problem: Factitious hyponatremia secondary to hyperglycemia and true hyponatremia secondary to volume depletion. Improved with blood sugar control and volume repletion. Sodium is back to normal. (3) Type 2 diabetes mellitus with hyperosmolar nonketotic hyperglycemia Current Visit: Yes Status: Acute Plan to address problem: Blood sugar control improved though still suboptimal. Continue management by primary attending (4) UTI (urinary tract infection) Current Visit: Yes Status: Acute Qualifiers: Urinary tract infection type: acute cystitis Hematuria presence: H Indwelling urinary catheter type: I Encounter type: E Plan to address problem: Escherichia coli sensitive to Cipro/Bactrim. Continue antibiotics (5) Essential (primary) hypertension Current Visit: Yes Status: Acute Plan to address problem: Blood Pressure is controlled on current medications. Continue same (6) Sepsis Current Visit: Yes Status: Acute Qualifiers: Sepsis type: S Plan to address problem: Off of Levophed. Continue antibiotics per ID. (7) Herpes zoster Current Visit: Yes Status: Acute Qualifiers: Herpes zoster complications: without complications Herpes zoster neurologic complication detail: H Herpes zoster ocular complication detail: H Qualified Code(s): B02.9 - Zoster without complications Plan to address problem: On acyclovir Subjective Date of service: 05/31/17 Principal diagnosis: Sepsis Syndrome; Cellulitis Interval history: Patient seen lying in bed. Still C/o Pain right side. Feels much better Objective - Exam Narrative Exam: [Middle-aged female lying in bed] in no acute distress HEENT [normocephalic atraumatic, pupils equal reactive to light, pink, clear oropharynx] Neck [supple, no thyromegaly no jugular venous distention] CVS [S1-S2 regular rate rhythm without murmur, rub or gallop] Chest [clear to auscultation] Abdomen [soft nondistended nontender no organomegaly no bruit bowel sounds present] Extremities [no edema no cyanosis or clubbing] Neuro [awake, alert oriented x3 no gross deficit] - Vital Signs Vital signs: Vital Signs - 12hr 08/14/17 08/14/17 08/14/17 19:45 20:00 20:15 Temperature Pulse Rate 87 82 83 Pulse Rate [ 75 Apical] Pulse Rate [ 75 From Monitor] Pulse Rate [ 75 Left Dorsalis Pedis] Pulse Rate [ 75 Left Radial] Pulse Rate [ 75 Right Dorsalis Pedis] Pulse Rate [ 75 Right Radial] Respiratory 20 27 H 15 Rate Blood Pressure 113/45 100/57 113/45 O2 Sat by Pulse 98 100 96 Oximetry 05/30/17 05/30/17 05/30/17 20:31 20:35 20:45 Temperature 98.2 F Pulse Rate 85 91 H Pulse Rate [ Apical] Pulse Rate [ From Monitor] Pulse Rate [ Left Dorsalis Pedis] Pulse Rate [ Left Radial] Pulse Rate [ Right Dorsalis Pedis] Pulse Rate [ Right Radial] Respiratory 11 L 15 Rate Blood Pressure 113/45 113/45 O2 Sat by Pulse 96 98 Oximetry 05/30/17 05/30/17 05/30/17 21:00 21:15 21:31 Temperature Pulse Rate 83 81 83 Pulse Rate [ Apical] Pulse Rate [ From Monitor] Pulse Rate [ Left Dorsalis Pedis] Pulse Rate [ Left Radial] Pulse Rate [ Right Dorsalis Pedis] Pulse Rate [ Right Radial] Respiratory 22 16 9 L Rate Blood Pressure 100/54 100/54 100/54 O2 Sat by Pulse 96 95 97 Oximetry 05/30/17 05/30/17 05/30/17 21:45 22:01 22:15 Temperature Pulse Rate 84 82 107 H Pulse Rate [ Apical] Pulse Rate [ From Monitor] Pulse Rate [ Left Dorsalis Pedis] Pulse Rate [ Left Radial] Pulse Rate [ Right Dorsalis Pedis] Pulse Rate [ Right Radial] Respiratory 12 21 15 Rate Blood Pressure 100/54 100/54 100/54 O2 Sat by Pulse 98 Oximetry 05/30/17 05/30/17 05/30/17 22:31 22:37 22:45 Temperature Pulse Rate 94 H 80 77 Pulse Rate [ Apical] Pulse Rate [ From Monitor] Pulse Rate [ Left Dorsalis Pedis] Pulse Rate [ Left Radial] Pulse Rate [ Right Dorsalis Pedis] Pulse Rate [ Right Radial] Respiratory 17 21 18 Rate Blood Pressure 130/60 130/60 130/60 O2 Sat by Pulse 98 96 Oximetry 05/30/17 05/30/1717 23:00 23:15 23:16 Temperature Pulse Rate 82 89 Pulse Rate [ Apical] Pulse Rate [ From Monitor] Pulse Rate [ Left Dorsalis Pedis] Pulse Rate [ Left Radial] Pulse Rate [ Right Dorsalis Pedis] Pulse Rate [ Right Radial] Respiratory 18 16 21 Rate Blood Pressure 99/47 99/47 O2 Sat by Pulse 96 97 Oximetry 05/30/17 05/30/17 05/31/17 23:31 23:45 00:00 Temperature Pulse Rate 87 81 85 Pulse Rate [ 77 Apical] Pulse Rate [ From Monitor] Pulse Rate [ 77 Left Dorsalis Pedis] Pulse Rate [ 77 Left Radial] Pulse Rate [ 77 Right Dorsalis Pedis] Pulse Rate [ 77 Right Radial] Respiratory 19 16 14 Rate Blood Pressure 99/47 99/47 102/52 O2 Sat by Pulse 98 96 96 Oximetry 05/31/17 05/31/17 05/31/17 00:08 00:15 00:31 Temperature 98 F Pulse Rate 85 83 Pulse Rate [ Apical] Pulse Rate [ From Monitor] Pulse Rate [ Left Dorsalis Pedis] Pulse Rate [ Left Radial] Pulse Rate [ Right Dorsalis Pedis] Pulse Rate [ Right Radial] Respiratory 16 16 Rate Blood Pressure 102/52 102/52 O2 Sat by Pulse 96 96 Oximetry 05/31/17 05/31/17 05/31/17 00:45 01:00 01:15 Temperature Pulse Rate 82 93 H 76 Pulse Rate [ Apical] Pulse Rate [ From Monitor] Pulse Rate [ Left Dorsalis Pedis] Pulse Rate [ Left Radial] Pulse Rate [ Right Dorsalis Pedis] Pulse Rate [ Right Radial] Respiratory 14 11 L 17 Rate Blood Pressure 102/52 121/52 121/52 O2 Sat by Pulse 97 99 97 Oximetry 05/31/17 05/31/17 05/31/17 01:31 01:45 02:00 Temperature Pulse Rate 74 86 74 Pulse Rate [ Apical] Pulse Rate [ From Monitor] Pulse Rate [ Left Dorsalis Pedis] Pulse Rate [ Left Radial] Pulse Rate [ Right Dorsalis Pedis] Pulse Rate [ Right Radial] Respiratory 18 22 16 Rate Blood Pressure 102/52 121/52 99/51 O2 Sat by Pulse 97 100 98 Oximetry 05/31/17 05/31/17 05/31/17 02:15 02:31 02:45 Temperature Pulse Rate 76 82 76 Pulse Rate [ Apical] Pulse Rate [ From Monitor] Pulse Rate [ Left Dorsalis Pedis] Pulse Rate [ Left Radial] Pulse Rate [ Right Dorsalis Pedis] Pulse Rate [ Right Radial] Respiratory 17 18 16 Rate Blood Pressure 99/51 99/51 99/51 O2 Sat by Pulse 97 98 97 Oximetry 05/31/17 05/31/17 05/31/17 03:01 03:15 03:31 Temperature Pulse Rate 89 75 75 Pulse Rate [ Apical] Pulse Rate [ From Monitor] Pulse Rate [ Left Dorsalis Pedis] Pulse Rate [ Left Radial] Pulse Rate [ Right Dorsalis Pedis] Pulse Rate [ Right Radial] Respiratory 13 13 15 Rate Blood Pressure 91/58 91/58 91/58 O2 Sat by Pulse 98 98 97 Oximetry 05/31/17 05/31/17 05/31/17 03:45 04:00 04:15 Temperature 97.9 F Pulse Rate 78 85 74 Pulse Rate [ Apical] Pulse Rate [ From Monitor] Pulse Rate [ Left Dorsalis Pedis] Pulse Rate [ Left Radial] Pulse Rate [ Right Dorsalis Pedis] Pulse Rate [ Right Radial] Respiratory 13 16 16 Rate Blood Pressure 117/60 122/61 122/61 O2 Sat by Pulse 99 98 95 Oximetry 05/31/17 05/31/17 05/31/17 04:31 04:45 05:00 Temperature Pulse Rate 73 75 78 Pulse Rate [ Apical] Pulse Rate [ From Monitor] Pulse Rate [ Left Dorsalis Pedis] Pulse Rate [ Left Radial] Pulse Rate [ Right Dorsalis Pedis] Pulse Rate [ Right Radial] Respiratory 26 H 14 13 Rate Blood Pressure 122/61 122/61 114/59 O2 Sat by Pulse 95 96 95 Oximetry 05/31/17 05/31/17 05:15 05:31 Temperature Pulse Rate 74 87 Pulse Rate [ Apical] Pulse Rate [ From Monitor] Pulse Rate [ Left Dorsalis Pedis] Pulse Rate [ Left Radial] Pulse Rate [ Right Dorsalis Pedis] Pulse Rate [ Right Radial] Respiratory 14 18 Rate Blood Pressure 114/59 114/59 O2 Sat by Pulse 95 96 Oximetry - Lab 05/31/17 03:59 05/31/17 03:59 Most recent lab results Calcium 8.0 mg/dL (8.4-10.2) L 05/31/17 03:59 Phosphorus 2.10 mg/dL (2.5-4.5) L 05/27/17 22:30 Magnesium 1.90 mg/dL (1.7-2.3) 05/27/17 22:30 Urine Creatinine 88.9 mg/dL (0.1-20.0) H 05/29/17 Unknown Urine Sodium 11 mEq/L 05/29/17 Unknown Urine Total Protein 61 mg/dL (5-11.8) H 05/29/17 Unknown
[2017-05-31] MEDS: LEXAPRO PO SCH (10:03)
[2017-05-31] MEDS: PAXIL PO SCH (10:03)
[2017-05-31] MEDS: ZOVIRAX PO SCH ×3 (10:04→21:18)
[2017-05-31] MEDS: NOVOLOG SUB-Q SCH ×4 (10:04→22:04)
[2017-05-31] MEDS: ZOVIRAX 700 MG in NACL 0.9% 100 ML IV SCH (10:05)
[2017-05-31] MEDS: PEPCID PO SCH (10:05)
[2017-05-31] MEDS: NORCO 5/325 PO PRN (10:05)
[2017-05-31] MEDS: LOVENOX SUB-Q SCH (10:05)
[2017-05-31] MEDS: VANCOMYCIN 1,250 MG in NACL 0.9% 250ML 250 ML IV SCH ×2 (10:08→23:22)
[2017-05-31] MEDS: ZESTRIL PO SCH (10:14)
--- NOTE | 2017-05-31 10:51 | Progress Note ---
Assessment and Plan Assessment and plan: DKA. Resolved. Septic shock. Improved. Continue IV antibiotics. Levophed has been weaned off. Patient will be transferred to the floor. Blood cultures remained negative. Furunculosis. Continue IV antibiotics. ID following. Follow-up culture results. Herpes zoster. Continue acyclovir per ID Diabetes mellitus type 2. Continue sliding scale and long-acting insulin. We will add Lantus at bedtime. Tight glycemic control. Acute renal failure. Nephrology following. Etiology likely secondary to sepsis /ATN/AMMY/volume depletion. Cont supportive care for AMMY, avoid nephrotoxins, NSAIDs, IV contrast Pseudohyponatremia. Follow BMP. UTI. Continue IV antibiotics. Urine culture reveals Escherichia coli that is sensitive to Levaquin. Blood cultures remained negative. DVT prophylaxis. Continue Lovenox. History Interval history: 56-year-old female who was admitted with DKA and sepsis. Patient noted to have multiple abscesses. The patient has been off pressors since 7 AM this morning. Hospitalist Physical - Constitutional Vitals: Temp Pulse Resp BP Pulse Ox 97.9 F 79 13 118/62 94 05/31/17 04:00 05/31/17 10:14 05/31/17 08:15 05/31/17 10:14 05/31/17 08:15 General appearance: Present: no acute distress, other (non-toxic appearance) - EENT Eyes: Present: PERRL, EOM intact ENT: hearing intact, clear oral mucosa, dentition normal - Neck Neck: Present: supple, normal ROM - Respiratory Respiratory effort: normal Respiratory: bilateral: CTA - Cardiovascular Rhythm: regular Heart Sounds: Present: S1 & S2. Absent: gallop, rub - Extremities Extremities: no ischemia, No edema, Full ROM - Abdominal General gastrointestinal: soft, non-tender, non-distended, normal bowel sounds - Integumentary Integumentary: Present: clear, warm, dry - Neurologic Neurologic: CNII-XII intact, moves all extremities Results - Labs CBC & Chem 7: 05/31/17 03:59 05/31/17 03:59 Labs: Laboratory Last Values WBC 9.5 K/mm3 (4.5-11.0) 05/31/17 03:59 RBC 3.60 M/mm3 (3.65-5.03) L 05/31/17 03:59 Hgb 10.5 gm/dl (10.1-14.3) 05/31/17 03:59 Hct 30.6 % (30.3-42.9) 05/31/17 03:59 MCV 85 fl (79-97) 05/31/17 03:59 MCH 29 pg (28-32) 05/31/17 03:59 MCHC 34 % (30-34) 05/31/17 03:59 RDW 14.1 % (13.2-15.2) 05/31/17 03:59 Plt Count 235 K/mm3 (140-440) 05/31/17 03:59 Lymph % (Auto) 8.4 % (13.4-35.0) L 05/31/17 03:59 [place] % (Auto) 6.6 % (0.0-7.3) 05/31/17 03:59 Eos % (Auto) 1.0 % (0.0-4.3) 05/31/17 03:59 Baso % (Auto) 0.2 % (0.0-1.8) 05/31/17 03:59 Lymph # 0.8 K/mm3 (1.2-5.4) L 05/31/17 03:59 [place] # 0.6 K/mm3 (0.0-0.8) 05/31/17 03:59 Eos # 0.1 K/mm3 (0.0-0.4) 05/31/17 03:59 Baso # 0.0 K/mm3 (0.0-0.1) 05/31/17 03:59 Add Manual Diff Complete 05/27/17 13:00 Total Counted 100 05/27/17 13:00 Seg Neutrophils % 83.8 % (40.0-70.0) H 05/31/17 03:59 Seg Neuts % (Manual) 84.0 % (40.0-70.0) H 05/27/17 13:00 Band Neutrophils % 14.0 % 05/27/17 13:00 Lymphocytes % (Manual) 2.0 % (13.4-35.0) L 05/27/17 13:00 Reactive Lymphs % (Man) 0 % 05/27/17 13:00 Monocytes % (Manual) 0 % (0.0-7.3) 05/27/17 13:00 Eosinophils % (Manual) 0 % (0.0-4.3) 05/27/17 13:00 Basophils % (Manual) 0 % (0.0-1.8) 05/27/17 13:00 Metamyelocytes % 0 % 05/27/17 13:00 Myelocytes % 0 % 05/27/17 13:00 Promyelocytes % 0 % 05/27/17 13:00 Blast Cells % 0 % 05/27/17 13:00 Nucleated RBC % Not Reportable 05/27/17 13:00 Seg Neutrophils # 8.0 K/mm3 (1.8-7.7) H 05/31/17 03:59 Seg Neutrophils # Man 16.6 K/mm3 (1.8-7.7) H 05/27/17 13:00 Band Neutrophils # 2.8 K/mm3 05/27/17 13:00 Lymphocytes # (Manual) 0.4 K/mm3 (1.2-5.4) L 05/27/17 13:00 Abs React Lymphs (Man) 0.0 K/mm3 05/27/17 13:00 Monocytes # (Manual) 0.0 K/mm3 (0.0-0.8) 05/27/17 13:00 Eosinophils # (Manual) 0.0 K/mm3 (0.0-0.4) 05/27/17 13:00 Basophils # (Manual) 0.0 K/mm3 (0.0-0.1) 05/27/17 13:00 Metamyelocytes # 0.0 K/mm3 05/27/17 13:00 Myelocytes # 0.0 K/mm3 05/27/17 13:00 Promyelocytes # 0.0 K/mm3 05/27/17 13:00 Blast Cells # 0.0 K/mm3 05/27/17 13:00 WBC Morphology Not Reportable 05/27/17 13:00 Hypersegmented Neuts Not Reportable 05/27/17 13:00 Hyposegmented Neuts Not Reportable 05/27/17 13:00 Hypogranular Neuts Not Reportable 05/27/17 13:00 Smudge Cells Not Reportable 05/27/17 13:00 Toxic Granulation Not Reportable 05/27/17 13:00 Toxic Vacuolation Not Reportable 05/27/17 13:00 Dohle Bodies Not Reportable 05/27/17 13:00 Pelger-Huet Anomaly Not Reportable 05/27/17 13:00 Aria Rods Not Reportable 05/27/17 13:00 Platelet Estimate Appears normal 05/27/17 13:00 Clumped Platelets Not Reportable 05/27/17 13:00 Plt Clumps, EDTA Not Reportable 05/27/17 13:00 Large Platelets Few 05/27/17 13:00 Giant Platelets Not Reportable 05/27/17 13:00 Platelet Satelliting Not Reportable 05/27/17 13:00 Plt Morphology Comment Not Reportable 05/27/17 13:00 RBC Morphology Normal 05/27/17 13:00 Dimorphic RBCs Not Reportable 05/27/17 13:00 Polychromasia Not Reportable 05/27/17 13:00 Hypochromasia Not Reportable 05/27/17 13:00 Poikilocytosis Not Reportable 05/27/17 13:00 Anisocytosis Not Reportable 05/27/17 13:00 Microcytosis Not Reportable 05/27/17 13:00 Macrocytosis Not Reportable 05/27/17 13:00 Spherocytes Not Reportable 05/27/17 13:00 Pappenheimer Bodies Not Reportable 05/27/17 13:00 Sickle Cells Not Reportable 05/27/17 13:00 Target Cells Not Reportable 05/27/17 13:00 Tear Drop Cells Not Reportable 05/27/17 13:00 Ovalocytes Not Reportable 05/27/17 13:00 Helmet Cells Not Reportable 05/27/17 13:00 [place] Bodies Not Reportable 05/27/17 13:00 [place] Rings Not Reportable 05/27/17 13:00 Ian Cells Not Reportable 05/27/17 13:00 Bite Cells Not Reportable 05/27/17 13:00 Crenated Cell Not Reportable 05/27/17 13:00 Elliptocytes Not Reportable 05/27/17 13:00 Acanthocytes (Spur) Not Reportable 05/27/17 13:00 Rouleaux Not Reportable 05/27/17 13:00 Hemoglobin C Crystals Not Reportable 05/27/17 13:00 Schistocytes Not Reportable 05/27/17 13:00 Malaria parasites Not Reportable 05/27/17 13:00 Erick Bodies Not Reportable 05/27/17 13:00 Hem Pathologist Commnt No 05/27/17 13:00 VBG pH 7.284 (7.320-7.420) L 05/27/17 16:18 Sodium 137 mmol/L (137-145) 05/31/17 03:59 Potassium 4.1 mmol/L (3.6-5.0) 05/31/17 03:59 Chloride 101.2 mmol/L (98-107) 05/31/17 03:59 Carbon Dioxide 22 mmol/L (22-30) 05/31/17 03:59 Anion Gap 18 mmol/L 05/31/17 03:59 BUN 13 mg/dL (7-17) 05/31/17 03:59 Creatinine 0.7 mg/dL (0.7-1.2) 05/31/17 03:59 Estimated GFR > 60 ml/min 05/31/17 03:59 BUN/Creatinine Ratio 18.57 % 05/31/17 03:59 Glucose 103 mg/dL (65-100) H 05/31/17 03:59 POC Glucose 162 (70-105) H 05/31/17 07:33 Ketones Quantitative Negative (Negative) 05/27/17 13:54 Lactic Acid 1.80 mmol/L (0.7-2.0) 05/30/17 03:44 Calcium 8.0 mg/dL (8.4-10.2) L 05/31/17 03:59 Phosphorus 2.10 mg/dL (2.5-4.5) L 05/27/17 22:30 Magnesium 1.90 mg/dL (1.7-2.3) 05/27/17 22:30 Total Bilirubin 0.60 mg/dL (0.1-1.2) 05/27/17 13:00 AST 14 units/L (5-40) 05/27/17 13:00 ALT 13 units/L (7-56) 05/27/17 13:00 Alkaline Phosphatase 105 units/L (35-129) 05/27/17 13:00 C-Reactive Protein 22.40 mg/dL (0.00-1.30) H 05/30/17 03:44 Total Protein 6.9 g/dL (6.3-8.2) 05/27/17 13:00 Albumin 2.7 g/dL (3.9-5) L 05/27/17 13:00 Albumin/Globulin Ratio 0.6 % 05/27/17 13:00 Urine Color Yellow (Yellow) 05/29/17 Unknown Urine Turbidity Slightly-cloudy (Clear) 05/29/17 Unknown Urine pH 6.0 (5.0-7.0) 05/29/17 Unknown Ur Specific [place] 1.016 (1.003-1.030) 05/29/17 Unknown Urine Protein 30 mg/dl mg/dL (Negative) 05/29/17 Unknown Urine Glucose (UA) >=500 mg/dL (Negative) 05/29/17 Unknown Urine Ketones Neg mg/dL (Negative) 05/29/17 Unknown Urine Blood Neg (Negative) 05/29/17 Unknown Urine Nitrite Neg (Negative) 05/29/17 Unknown Urine Bilirubin Neg (Negative) 05/29/17 Unknown Urine Urobilinogen 4.0 mg/dL (<2.0) 05/29/17 Unknown Ur Leukocyte Esterase Lg (Negative) 05/29/17 Unknown Urine WBC (Auto) 106.0 /HPF (0.0-6.0) H 05/29/17 Unknown Urine RBC (Auto) 2.0 /HPF (0.0-6.0) 05/29/17 Unknown U Epithel Cells (Auto) 10.0 /HPF (0-13.0) 05/29/17 Unknown Urine Bacteria (Auto) 1+ /HPF (Negative) 05/29/17 Unknown Urine Mucus Few /HPF 05/29/17 Unknown Urine Osmolality 544 Mosm/kg 05/29/17 Unknown Urine Creatinine 88.9 mg/dL (0.1-20.0) H 05/29/17 Unknown Urine Microalbumin < 1.2 mg/dL (0.1-34.0) 05/29/17 Unknown Microalb/Creat Ratio 13.4 ug/mg 05/29/17 Unknown Urine Sodium 11 mEq/L 05/29/17 Unknown Urine Total Protein 61 mg/dL (5-11.8) H 05/29/17 Unknown HIV 1&2 Antibody Rapid Non react (Non React) 05/29/17 03:51 HIV P24 Antigen Non react (Non React) 05/29/17 03:51
--- NOTE | 2017-05-31 11:21 | Progress Note ---
Assessment and Plan - Patient Problems (1) Cellulitis Current Visit: Yes Status: Acute Qualifiers: Site of cellulitis: S Site of cellulitis of extremity: S Site of cellulitis of trunk: S Laterality: L (2) Renal insufficiency Current Visit: Yes Status: Acute (3) Sepsis Current Visit: Yes Status: Acute Qualifiers: Sepsis type: S (4) DKA (diabetic ketoacidoses) Current Visit: Yes Status: Acute Qualifiers: Diabetes mellitus type: type 2 Diabetes mellitus complication detail: D (5) UTI (urinary tract infection) Current Visit: Yes Status: Acute Qualifiers: Urinary tract infection type: acute cystitis Hematuria presence: H Indwelling urinary catheter type: I Encounter type: E (6) Discharge planning issues Current Visit: Yes Status: Acute Subjective Date of service: 05/31/17 Principal diagnosis: Sepsis Syndrome; Cellulitis Interval history: Seen and examined at bedside; 24 hour events reviewed; nursing and respiratory care staff consulted; no adverse overnight events reported to me; Objective Vital Signs - 12hr 05/30/17 05/30/17 05/31/17 23:31 23:45 00:00 Temperature Pulse Rate 87 81 85 Pulse Rate [ 77 Apical] Pulse Rate [ 77 Left Dorsalis Pedis] Pulse Rate [ 77 Left Radial] Pulse Rate [ 77 Right Dorsalis Pedis] Pulse Rate [ 77 Right Radial] Respiratory 19 16 14 Rate Blood Pressure 99/47 99/47 102/52 O2 Sat by Pulse 98 96 96 Oximetry 05/31/17 05/31/17 05/31/17 00:08 00:15 00:31 Temperature 98 F Pulse Rate 85 83 Pulse Rate [ Apical] Pulse Rate [ Left Dorsalis Pedis] Pulse Rate [ Left Radial] Pulse Rate [ Right Dorsalis Pedis] Pulse Rate [ Right Radial] Respiratory 16 16 Rate Blood Pressure 102/52 102/52 O2 Sat by Pulse 96 96 Oximetry 05/31/17 05/31/17 05/31/17 00:45 01:00 01:15 Temperature Pulse Rate 82 93 H 76 Pulse Rate [ Apical] Pulse Rate [ Left Dorsalis Pedis] Pulse Rate [ Left Radial] Pulse Rate [ Right Dorsalis Pedis] Pulse Rate [ Right Radial] Respiratory 14 11 L 17 Rate Blood Pressure 102/52 121/52 121/52 O2 Sat by Pulse 97 99 97 Oximetry 05/31/17 05/31/17 05/31/17 01:31 01:45 02:00 Temperature Pulse Rate 74 86 74 Pulse Rate [ Apical] Pulse Rate [ Left Dorsalis Pedis] Pulse Rate [ Left Radial] Pulse Rate [ Right Dorsalis Pedis] Pulse Rate [ Right Radial] Respiratory 18 22 16 Rate Blood Pressure 102/52 121/52 99/51 O2 Sat by Pulse 97 100 98 Oximetry 05/31/17 05/31/17 05/31/17 02:15 02:31 02:45 Temperature Pulse Rate 76 82 76 Pulse Rate [ Apical] Pulse Rate [ Left Dorsalis Pedis] Pulse Rate [ Left Radial] Pulse Rate [ Right Dorsalis Pedis] Pulse Rate [ Right Radial] Respiratory 17 18 16 Rate Blood Pressure 99/51 99/51 99/51 O2 Sat by Pulse 97 98 97 Oximetry 05/31/17 05/31/17 05/31/17 03:01 03:15 03:31 Temperature Pulse Rate 89 75 75 Pulse Rate [ Apical] Pulse Rate [ Left Dorsalis Pedis] Pulse Rate [ Left Radial] Pulse Rate [ Right Dorsalis Pedis] Pulse Rate [ Right Radial] Respiratory 13 13 15 Rate Blood Pressure 91/58 91/58 91/58 O2 Sat by Pulse 98 98 97 Oximetry 05/31/17 05/31/17 05/31/17 03:45 04:00 04:15 Temperature 97.9 F Pulse Rate 78 85 74 Pulse Rate [ Apical] Pulse Rate [ Left Dorsalis Pedis] Pulse Rate [ Left Radial] Pulse Rate [ Right Dorsalis Pedis] Pulse Rate [ Right Radial] Respiratory 13 16 16 Rate Blood Pressure 117/60 122/61 122/61 O2 Sat by Pulse 99 98 95 Oximetry 05/31/17 05/31/17 05/31/17 04:31 04:45 05:00 Temperature Pulse Rate 73 75 78 Pulse Rate [ Apical] Pulse Rate [ Left Dorsalis Pedis] Pulse Rate [ Left Radial] Pulse Rate [ Right Dorsalis Pedis] Pulse Rate [ Right Radial] Respiratory 26 H 14 13 Rate Blood Pressure 122/61 122/61 114/59 O2 Sat by Pulse 95 96 95 Oximetry 05/31/17 05/31/17 05/31/17 05:15 05:31 05:53 Temperature Pulse Rate 74 87 77 Pulse Rate [ Apical] Pulse Rate [ Left Dorsalis Pedis] Pulse Rate [ Left Radial] Pulse Rate [ Right Dorsalis Pedis] Pulse Rate [ Right Radial] Respiratory 14 18 Rate Blood Pressure 114/59 114/59 114/59 O2 Sat by Pulse 95 96 Oximetry 05/31/17 05/31/17 05/31/17 06:00 06:15 06:31 Temperature Pulse Rate 77 73 69 Pulse Rate [ Apical] Pulse Rate [ Left Dorsalis Pedis] Pulse Rate [ Left Radial] Pulse Rate [ Right Dorsalis Pedis] Pulse Rate [ Right Radial] Respiratory 15 16 15 Rate Blood Pressure 121/59 121/59 114/59 O2 Sat by Pulse 98 97 95 Oximetry 05/31/17 05/31/17 05/31/17 06:45 07:00 07:15 Temperature Pulse Rate 91 H 80 81 Pulse Rate [ Apical] Pulse Rate [ Left Dorsalis Pedis] Pulse Rate [ Left Radial] Pulse Rate [ Right Dorsalis Pedis] Pulse Rate [ Right Radial] Respiratory 15 14 16 Rate Blood Pressure 114/59 120/55 120/55 O2 Sat by Pulse 99 98 96 Oximetry 05/31/17 05/31/17 05/31/17 07:31 07:45 08:00 Temperature Pulse Rate 95 H 92 H 84 Pulse Rate [ Apical] Pulse Rate [ Left [place] Pedis] Pulse Rate [ Left Radial] Pulse Rate [ Right Dorsalis Pedis] Pulse Rate [ Right Radial] Respiratory 15 15 12 Rate Blood Pressure 120/55 120/55 100/50 O2 Sat by Pulse 100 99 99 Oximetry 05/31/17 05/31/17 08:15 10:14 Temperature Pulse Rate 92 H 79 Pulse Rate [ Apical] Pulse Rate [ Left Dorsalis Pedis] Pulse Rate [ Left Radial] Pulse Rate [ Right Dorsalis Pedis] Pulse Rate [ Right Radial] Respiratory 13 Rate Blood Pressure 100/50 118/62 O2 Sat by Pulse 94 Oximetry Constitutional: no acute distress, alert Eyes: non-icteric ENT: oropharynx moist Neck: supple, no lymphadenopathy Effort: mildly labored Ascultation: Bilateral: clear Cardiovascular: regular rate and rhythm Gastrointestinal: normoactive bowel sounds, soft, non-tender, non-distended Integumentary: cellulitis, other (erythema to right upper back and axillary region; no graining lesion) Extremities: no cyanosis, no edema, pulses normal, no ischemia or petechiae Neurologic: normal mental status, non-focal exam, pupils equal and round, motor strength normal and Psychiatric: mood appropriate, affect normal CBC and BMP: 05/31/17 03:59 05/31/17 03:59 Abnormal lab findings: Abnormal Labs 05/27/17 05/27/17 05/27/17 16:18 16:18 16:39 WBC RBC Lymph % (Auto) Lymph # Seg Neutrophils % Seg Neutrophils # VBG pH 7.284 L Sodium 126 L D Chloride 87.1 L Carbon Dioxide 21 L BUN 31 H Creatinine Glucose 410 H POC Glucose 334 H Lactic Acid Calcium 8.0 L Phosphorus C-Reactive Protein Urine WBC (Auto) Urine Creatinine Urine Total Protein 05/27/17 05/27/17 05/27/17 18:02 19:08 19:38 WBC RBC Lymph % (Auto) Lymph # Seg Neutrophils % Seg Neutrophils # VBG pH Sodium 130 L Chloride 94.1 L Carbon Dioxide BUN 34 H Creatinine 1.3 H Glucose 223 H POC Glucose 364 H 313 H Lactic Acid Calcium 7.9 L Phosphorus C-Reactive Protein Urine WBC (Auto) Urine Creatinine Urine Total Protein 05/27/17 05/27/17 05/27/17 20:07 21:00 21:47 WBC RBC Lymph % (Auto) Lymph # Seg Neutrophils % Seg Neutrophils # VBG pH Sodium Chloride Carbon Dioxide BUN Creatinine Glucose POC Glucose 266 H 171 H 132 H Lactic Acid Calcium Phosphorus C-Reactive Protein Urine WBC (Auto) Urine Creatinine Urine Total Protein 05/27/17 05/27/17 05/27/17 22:30 23:49 Unknown WBC RBC Lymph % (Auto) Lymph # Seg Neutrophils % Seg Neutrophils # VBG pH Sodium 129 L 129 L Chloride 94.2 L 93.5 L Carbon Dioxide BUN 34 H 34 H Creatinine Glucose 104 H POC Glucose Lactic Acid Calcium 8.0 L 7.8 L Phosphorus 2.10 L C-Reactive Protein Urine WBC (Auto) > 182.0 H Urine Creatinine Urine Total Protein 05/28/17 05/28/17 05/28/17 01:11 01:19 02:00 WBC RBC Lymph % (Auto) Lymph # Seg Neutrophils % Seg Neutrophils # VBG pH Sodium 124 L Chloride 92.3 L Carbon Dioxide 16 L BUN 34 H Creatinine Glucose 103 H POC Glucose 124 H 111 H Lactic Acid Calcium 7.9 L Phosphorus C-Reactive Protein Urine WBC (Auto) Urine Creatinine Urine Total Protein 05/28/17 05/28/17 05/28/17 02:25 03:06 04:17 WBC RBC Lymph % (Auto) Lymph # Seg Neutrophils % Seg Neutrophils # VBG pH Sodium 128 L Chloride 94.0 L Carbon Dioxide 19 L BUN 34 H Creatinine Glucose 136 H POC Glucose 164 H 181 H Lactic Acid Calcium 8.1 L Phosphorus C-Reactive Protein Urine WBC (Auto) Urine Creatinine Urine Total Protein 05/28/17 05/28/17 05/28/17 04:53 05:32 05:33 WBC RBC Lymph % (Auto) Lymph # Seg Neutrophils % Seg Neutrophils # VBG pH Sodium 129 L Chloride 95.3 L Carbon Dioxide 17 L BUN 36 H Creatinine Glucose 155 H POC Glucose 184 H 171 H Lactic Acid Calcium 7.7 L Phosphorus C-Reactive Protein Urine WBC (Auto) Urine Creatinine Urine Total Protein 05/28/17 05/28/17 05/28/17 07:56 08:20 09:04 WBC RBC Lymph % (Auto) Lymph # Seg Neutrophils % Seg Neutrophils # VBG pH Sodium 129 L Chloride 96.0 L Carbon Dioxide 18 L BUN 33 H Creatinine Glucose 124 H POC Glucose 131 H 126 H Lactic Acid Calcium 7.9 L Phosphorus C-Reactive Protein Urine WBC (Auto) Urine Creatinine Urine Total Protein 05/28/17 05/28/17 05/28/17 09:58 12:13 12:59 WBC RBC Lymph % (Auto) Lymph # Seg Neutrophils % Seg Neutrophils # VBG pH Sodium 128 L Chloride 94.6 L Carbon Dioxide 17 L BUN 32 H Creatinine Glucose 292 H POC Glucose 142 H 295 H Lactic Acid Calcium 8.0 L Phosphorus C-Reactive Protein Urine WBC (Auto) Urine Creatinine Urine Total Protein 05/28/17 05/28/17 05/28/17 14:43 14:43 15:57 WBC RBC Lymph % (Auto) Lymph # Seg Neutrophils % Seg Neutrophils # VBG pH Sodium Chloride Carbon Dioxide BUN Creatinine Glucose POC Glucose 431 H Lactic Acid 2.90 H* Calcium Phosphorus C-Reactive Protein 34.10 H Urine WBC (Auto) Urine Creatinine Urine Total Protein 05/28/17 05/28/17 05/29/17 20:51 21:13 03:51 WBC RBC Lymph % (Auto) Lymph # Seg Neutrophils % Seg Neutrophils # VBG pH Sodium 130 L 130 L Chloride 94.9 L 94.4 L Carbon Dioxide 21 L 20 L BUN 33 H 31 H Creatinine Glucose 217 H 277 H POC Glucose 241 H Lactic Acid Calcium 7.7 L 8.2 L Phosphorus C-Reactive Protein Urine WBC (Auto) Urine Creatinine Urine Total Protein 05/29/17 05/29/17 05/29/17 07:22 11:31 11:34 WBC 15.4 H RBC Lymph % (Auto) 5.2 L Lymph # 0.8 L Seg Neutrophils % 89.7 H Seg Neutrophils # 13.8 H VBG pH Sodium Chloride Carbon Dioxide BUN Creatinine Glucose POC Glucose 264 H 273 H Lactic Acid Calcium Phosphorus C-Reactive Protein Urine WBC (Auto) Urine Creatinine Urine Total Protein 05/29/17 05/29/17 05/29/17 16:31 21:49 Unknown WBC RBC Lymph % (Auto) Lymph # Seg Neutrophils % Seg Neutrophils # VBG pH Sodium Chloride Carbon Dioxide BUN Creatinine Glucose POC Glucose 328 H 264 H Lactic Acid Calcium Phosphorus C-Reactive Protein Urine WBC (Auto) 106.0 H Urine Creatinine Urine Total Protein 05/29/17 05/30/17 05/30/17 Unknown 03:44 03:44 WBC 11.7 H RBC Lymph % (Auto) 6.7 L Lymph # 0.8 L Seg Neutrophils % 88.1 H Seg Neutrophils # 10.3 H VBG pH Sodium 131 L Chloride Carbon Dioxide 20 L BUN 19 H Creatinine Glucose 192 H POC Glucose Lactic Acid Calcium 7.8 L Phosphorus C-Reactive Protein 22.40 H Urine WBC (Auto) Urine Creatinine 88.9 H Urine Total Protein 61 H 05/30/17 05/30/17 05/30/17 07:41 11:05 16:41 WBC RBC Lymph % (Auto) Lymph # Seg Neutrophils % Seg Neutrophils # VBG pH Sodium Chloride Carbon Dioxide BUN Creatinine Glucose POC Glucose 197 H 151 H 223 H Lactic Acid Calcium Phosphorus C-Reactive Protein Urine WBC (Auto) Urine Creatinine Urine Total Protein 05/30/17 05/31/17 05/31/17 21:48 03:59 03:59 WBC RBC 3.60 L Lymph % (Auto) 8.4 L Lymph # 0.8 L Seg Neutrophils % 83.8 H Seg Neutrophils # 8.0 H VBG pH Sodium Chloride Carbon Dioxide BUN Creatinine Glucose 103 H POC Glucose 240 H Lactic Acid Calcium 8.0 L Phosphorus C-Reactive Protein Urine WBC (Auto) Urine Creatinine Urine Total Protein 05/31/17 07:33 WBC RBC Lymph % (Auto) Lymph # Seg Neutrophils % Seg Neutrophils # VBG pH Sodium Chloride Carbon Dioxide BUN Creatinine Glucose POC Glucose 162 H Lactic Acid Calcium Phosphorus C-Reactive Protein Urine WBC (Auto) Urine Creatinine Urine Total Protein
[2017-05-31] MEDS: DILAUDID IV PRN ×2 (13:32→19:29)
[2017-05-31] MEDS: LEVAQUIN PO SCH (17:00)
[2017-05-31] MEDS: LEVEMIR SUB-Q SCH (22:14)
[2017-06-01] MEDS: DILAUDID IV PRN (00:33)
[2017-06-01 05:19] LABS: Basophils % (Auto) 0.4 % (0.0-1.8); Eosinophils % (Auto) 0.8 % (0.0-4.3); Hematocrit 31.9 % (30.3-42.9); Hemoglobin 11.1 gm/dl (10.1-14.3); Mean Corpuscular HGB Conc 35 % (30-34); Mean Corpuscular Hemoglobin 29 pg (28-32); Mean Corpuscular Volume 84 fl (79-97); Platelet Count 279 K/mm3 (140-440); White Blood Count 10.9 K/mm3 (4.5-11.0)
[2017-06-01 05:29] LABS: Anion Gap 14 mmol/L; BUN/Creatinine Ratio 11.42; Blood Urea Nitrogen 8 mg/dL (7-17); Calcium 7.6 mg/dL (8.4-10.2); Carbon Dioxide 24 mmol/L (22-30); Chloride 98.9 mmol/L (98-107); Glucose 104 mg/dL (65-100); Potassium 3.3 mmol/L (3.6-5.0); Sodium 134 mmol/L (137-145)
[2017-06-01] MEDS: SYNTHROID PO SCH (06:12)
[2017-06-01] MEDS: PROAMATINE PO SCH (06:12)
[2017-06-01] MEDS: NOVOLOG SUB-Q SCH ×2 (08:55→12:38)
[2017-06-01] MEDS: PEPCID PO SCH (10:29)
[2017-06-01] MEDS: LEXAPRO PO SCH (10:29)
[2017-06-01] MEDS: LOVENOX SUB-Q SCH (10:30)
[2017-06-01] MEDS: ZOVIRAX PO SCH (10:30)
[2017-06-01] MEDS: NORCO 5/325 PO PRN (10:45)
[2017-06-01] MEDS: VANCOMYCIN 1,250 MG in NACL 0.9% 250ML 250 ML IV SCH (10:48)
--- NOTE | 2017-06-01 11:07 | Discharge Summary ---
Providers - Providers Date of Admission: 05/27/17 15:28 Date of discharge: 06/01/17 Attending physician: EDSON VINES 05/27/17 21:15 Consult to Dietitian/Nutrition [CONS] Routine Physician Instructions: Reason For Exam: DKA Reason for Consult: Nutrition Recommendations Reason for Consult: Diet education 05/28/17 12:35 Consult to Physician [CONS] Routine Consulting Provider: LIUDMILA BA Reason For Exam: right flank abscess Place consult to:: Maricarmen Notified:: yes Was contact made?: Yes If yes, spoke with:: Maricarmen Time called:: 14:30 Comment:: on unit 05/28/17 15:45 Consult to Physician [CONS] Urgent Consulting Provider: ROXIE NELSON Reason For Exam: rt flank,rt axcillary,labia, lt thigh abcess Place consult to:: sandie Notified:: yes Phone number called:: [phone] Was contact made?: Yes If yes, spoke with:: sandie Time called:: 15:48 Primary care physician: SHINGLES ROOFER Hospitalization Reason for admission: abscess Condition: Good Hospital course: Ms. Ferro is a 56-year-old woman admitted with DKA, septic shock, acute renal failure, multiple abscesses and urinary tract infection. She has a right axillary lesion which was first noticed 4 days ago prior to admission. She had a right labial lesion, which has been present "for more than 10 years." She also had pain along her right flank with associated redness. Patient was treated with IV insulin and aggressive IV fluid hydration for the DKA. The patient's blood sugar stabilized and she was then transitioned to long-acting insulin. Patient received IV antibiotics for the UTI and multiple abscesses. 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 The patient also appeared to have herpes zoster and was treated with acyclovir. Surgery also evaluated the abscesses but felt no need for any surgical intervention. Patient initially required pressors that were later weaned off and patient was later transferred to the floor. With regards to the acute renal failure, etiology likely secondary to sepsis/ATN/AMMY/volume depletion. The patient was seen by nephrology consultation. The creatinine returned to normal range. The patient is felt to have received maximal hospital benefit. The IV vancomycin therapy will be discontinued and patient will be discharged with Bactrim and clindamycin. Patient also received prescription for acyclovir. Dedicated discharge time 35 minutes. Disposition: DC-01 TO HOME OR SELFCARE Time spent for discharge: 35 - Discharge Diagnoses (1) Abscess Status: Acute (2) Acute kidney injury Status: Acute (3) Acute renal failure Status: Acute Qualifiers: Acute renal failure type: unspecified Qualified Code(s): N17.9 - Acute kidney failure, unspecified (4) Cellulitis Status: Acute Qualifiers: Site of cellulitis: S Site of cellulitis of extremity: S Site of cellulitis of trunk: S Laterality: L (5) DKA (diabetic ketoacidoses) Status: Acute Qualifiers: Diabetes mellitus type: type 2 Diabetes mellitus complication detail: D (6) Essential (primary) hypertension Status: Acute (7) Herpes zoster Status: Acute Qualifiers: Herpes zoster complications: without complications Herpes zoster neurologic complication detail: H Herpes zoster ocular complication detail: H Qualified Code(s): B02.9 - Zoster without complications (8) Sepsis Status: Acute Qualifiers: Sepsis type: S (9) Sepsis affecting skin Status: Acute (10) Type 2 diabetes mellitus with hyperosmolar nonketotic hyperglycemia Status: Acute (11) UTI (urinary tract infection) Status: Acute Qualifiers: Urinary tract infection type: acute cystitis Hematuria presence: H Indwelling urinary catheter type: I Encounter type: E (12) Septic shock Status: Acute Core Measure Documentation - Palliative Care Palliative Care/ Comfort Measures: Not Applicable - Core Measures Any of the following diagnoses?: none Exam - Constitutional Vitals: Temp Pulse Resp BP Pulse Ox 98.3 F 74 18 133/62 96 06/01/17 08:00 06/01/17 08:00 06/01/17 08:00 06/01/17 08:00 06/01/17 08:00 General appearance: Present: no acute distress, well-nourished - EENT Eyes: Present: PERRL ENT: hearing intact, clear oral mucosa - Neck Neck: Present: supple, normal ROM - Respiratory Respiratory effort: normal Respiratory: bilateral: CTA - Cardiovascular Heart Sounds: Present: S1 & S2. Absent: rub, click - Extremities Extremities: pulses symmetrical, No edema Peripheral Pulses: within normal limits - Abdominal General gastrointestinal: Present: soft, non-tender, non-distended, normal bowel sounds Female genitourinary: Present: normal - Integumentary Integumentary: Present: clear, warm, dry - Musculoskeletal Musculoskeletal: gait normal, strength equal bilaterally - Psychiatric Psychiatric: appropriate mood/affect, intact judgment & insight - Neurologic Neurologic: CNII-XII intact, moves all extremities Plan Activity: no restrictions Weight Bearing Status: Full Weight Bearing Diet: diabetic Follow up with: PRIMARY CARE, [Primary Care Provider] - 3-5 Days ROXIE NELSON MD [Staff Physician] - 7 Days ALEXANDRO KHAN MD [Staff Physician] - 7 Days LIUDMILA BA MD [Staff Physician] - 7 Days Prescriptions: Acyclovir [Zovirax Tab] 800 mg PO TID #21 tablet Clindamycin [Clindamycin CAP] 450 mg PO Q8HR #42 capsule HYDROcodone/APAP 5-325 [[place] 5-325 mg TAB] 1 each PO Q4H PRN #20 tablet PRN Reason: Pain, Moderate (4-6) Insulin Detemir [Levemir] 10 units SUB-Q QHS #30 units Insulin NPH/Regular [NovoLIN 70/30] 25 unit SUB-Q QAMDIAB #30 units Insulin NPH/Regular [NovoLIN 70/30] 15 unit SUB-Q QPM #30 units Midodrine [Proamatine] 10 mg PO Q8H #30 tablet PARoxetine CR (NF) [Paxil (Nf)] 12.5 mg PO QDAY #30 tablet Sulfamethoxazole/Trimethoprim [Bactrim DS TAB] 1 each PO BID #28 tablet
[2017-06-01] MEDS: PAXIL PO SCH (11:58)
[2017-06-01 16:20] VITALS: BP 116/54
== END 2017-06-01 15:45 | disposition home or self-care (01) | DRG 871 ==
LOC: ED 10:25 → CC1 15:28 → 3A 05-31 13:01
PROVIDERS: ADMIT Internal Medicine; ATTEND Hospitalist
DX: A41.9 Sepsis, unspecified organism (principal); E13.10 Other specified diabetes mellitus with ketoacidosis without coma; N17.0 Acute kidney failure with tubular necrosis; R65.21 Severe sepsis with septic shock; L02.411 Cutaneous abscess of right axilla; E87.1 Hypo-osmolality and hyponatremia; N39.0 Urinary tract infection, site not specified; L03.111 Cellulitis of right axilla; I10 Essential (primary) hypertension; F17.210 Nicotine dependence, cigarettes, uncomplicated; E78.5 Hyperlipidemia, unspecified; M19.90 Unspecified osteoarthritis, unspecified site; J45.909 Unspecified asthma, uncomplicated; E03.9 Hypothyroidism, unspecified; B02.9 Zoster without complications; L02.92 Furuncle, unspecified; E86.9 Volume depletion, unspecified; T50.2X5A Adverse effect of carbonic-anhydrase inhibitors, benzothiadiazides and other diuretics, initial encounter; Y92.89 Other specified places as the place of occurrence of the external cause; Z79.899 Other long term (current) drug therapy; Z88.5 Allergy status to narcotic agent
CPT/HCPCS: 36415; 71020; 80048; 80053; 81001; 82010; 82043; 82140; 82805; 82962; 83735; 83935; 84100; 84156; 84300; 85007; 85025; 86140; 87040; 87076; 87086; 87186; 87806; 90732; 96361; 96365; 96375; 99406; A9270-GY; J0133; J0696; J1170; J1650; J1815; J1818; J2405; J2543; J3370; J7030; J7040; J7050; P9045

== ENCOUNTER 2017-12-09 06:00 | Emergency (ER) | payer SELFPAY ==
[2017-12-09] MEDS ORDERED: ZOFRAN ODT PO ONE (06:37)
[2017-12-09] MEDS ORDERED: PERCOCET 5/325 PO ONE (06:37)
--- NOTE | 2017-12-09 06:44 | Emergency Department Report ---
ED General Adult HPI - General Stated complaint: WOUND INFECTION Time Seen by Provider: 12/09/17 06:07 Source: patient, EMS - History of Present Illness Initial comments: Mrs. Ferro is a 57-year-old female with a history of hypertension, thyroid disease and diabetes who presents with abscess. She has a history of multiple abscesses. She required admission to the hospital last year for right flank/ axillary abscess. She's had a scalp at abscess of the right posterior hairline for the last 2 weeks. She came to the ER twice prior but due to prolonged wait she was unable to stay. She has drainage from the area. She denies fever. She has pain at that site. She denies vomiting. She denies malaise. Her last tetanus booster was received here in the hospital one year ago. Pain is moderate. - Related Data Home Medications Medication Instructions Recorded Confirmed Last Taken Escitalopram [Lexapro] 10 mg PO DAILY 05/27/17 05/27/17 05/27/17 Levothyroxine [Synthroid] 50 mcg PO QAM 05/27/17 05/27/17 05/27/17 Lisinopril [Zestril TAB] 20 mg PO QDAY 05/27/17 05/27/17 05/27/17 PARoxetine CR (NF) [Paxil (Nf)] 12.5 mg PO QAM 05/27/17 05/27/17 05/27/17 Rosuvastatin (Nf) [Crestor] 20 mg PO QHS 05/27/17 05/27/17 05/27/17 Combivent Respimat 20 mcg INHALATION Q6H PRN 05/31/17 05/31/17 Unknown Ventolin HFA 90 mcg INHALATION Q4H PRN 05/31/17 05/31/17 Unknown Previous Rx's Medication Instructions Recorded Last Taken Type Acyclovir [Zovirax Tab] 800 mg PO TID #21 tablet 06/01/17 Unknown Rx Clindamycin [Clindamycin CAP] 450 mg PO Q8HR #42 capsule 06/01/17 Unknown Rx HYDROcodone/APAP 5-325 [[place] 1 each PO Q4H PRN #20 tablet 06/01/17 Unknown Rx 5-325 mg TAB] Insulin Detemir [Levemir] 10 units SUB-Q QHS #30 units 06/01/17 Unknown Rx Insulin NPH/Regular [NovoLIN 70/30] 15 unit SUB-Q QPM #30 units 06/01/17 Unknown Rx Insulin NPH/Regular [NovoLIN 70/30] 25 unit SUB-Q QAMDIAB #30 units 06/01/17 Unknown Rx Midodrine [Proamatine] 10 mg PO Q8H #30 tablet 06/01/17 Unknown Rx PARoxetine CR (NF) [Paxil (Nf)] 12.5 mg PO QDAY #30 tablet 06/01/17 Unknown Rx Sulfamethoxazole/Trimethoprim 1 each PO BID #28 tablet 06/01/17 Unknown Rx [Bactrim DS TAB] Cephalexin [Keflex] 500 mg PO Q6HR 10 Days #40 capsule 12/09/17 Unknown Rx HYDROcodone/ACETAMINOPHEN [[place] 1 each PO Q6H #20 tablet 12/09/17 Unknown Rx 10-325 Tablet] Sulfamethoxazole/Trimethoprim 1 each PO BID 10 Days #20 tablet 12/09/17 Unknown Rx [Bactrim DS TAB] Allergies Allergy/AdvReac Type Severity Reaction Status Date / Time codeine Allergy Hives Verified 11/29/17 10:12 ED Review of Systems ROS: Stated complaint: WOUND INFECTION Other details as noted in HPI Comment: All other systems reviewed and negative Constitutional: denies: fever, malaise Cardiovascular: denies: chest pain ED Past Medical Hx - Past Medical History Hx Hypertension: Yes Hx Diabetes: Yes Hx Arthritis: Yes Hx Asthma: Yes Additional medical history: hyperthyroid - Surgical History Hx Appendectomy: Yes (age 30-35) Additional Surgical History: fusion to back - Social History Smoking Status: Current Every Day Smoker - Medications Home Medications: Home Medications Medication Instructions Recorded Confirmed Last Taken Type Escitalopram [Lexapro] 10 mg PO DAILY 05/27/17 05/27/17 05/27/17 History Levothyroxine [Synthroid] 50 mcg PO QAM 05/27/17 05/27/17 05/27/17 History Lisinopril [Zestril TAB] 20 mg PO QDAY 05/27/17 05/27/17 05/27/17 History PARoxetine CR (NF) [Paxil (Nf)] 12.5 mg PO QAM 05/27/17 05/27/17 05/27/17 History Rosuvastatin (Nf) [Crestor] 20 mg PO QHS 05/27/17 05/27/17 05/27/17 History Combivent Respimat 20 mcg INHALATION Q6H PRN 05/31/17 05/31/17 Unknown History Ventolin HFA 90 mcg INHALATION Q4H PRN 05/31/17 05/31/17 Unknown History Acyclovir [Zovirax Tab] 800 mg PO TID #21 tablet 06/01/17 Unknown Rx Clindamycin [Clindamycin CAP] 450 mg PO Q8HR #42 capsule 06/01/17 Unknown Rx HYDROcodone/APAP 5-325 [[place] 1 each PO Q4H PRN #20 tablet 06/01/17 Unknown Rx 5-325 mg TAB] Insulin Detemir [Levemir] 10 units SUB-Q QHS #30 units 06/01/17 Unknown Rx Insulin NPH/Regular [NovoLIN 70/30] 15 unit SUB-Q QPM #30 units 06/01/17 Unknown Rx Insulin NPH/Regular [NovoLIN 70/30] 25 unit SUB-Q QAMDIAB #30 units 06/01/17 Unknown Rx Midodrine [Proamatine] 10 mg PO Q8H #30 tablet 06/01/17 Unknown Rx PARoxetine CR (NF) [Paxil (Nf)] 12.5 mg PO QDAY #30 tablet 06/01/17 Unknown Rx Sulfamethoxazole/Trimethoprim 1 each PO BID #28 tablet 06/01/17 Unknown Rx [Bactrim DS TAB] Cephalexin [Keflex] 500 mg PO Q6HR 10 Days #40 capsule 12/09/17 Unknown Rx HYDROcodone/ACETAMINOPHEN [[place] 1 each PO Q6H #20 tablet 12/09/17 Unknown Rx 10-325 Tablet] Sulfamethoxazole/Trimethoprim 1 each PO BID 10 Days #20 tablet 12/09/17 Unknown Rx [Bactrim DS TAB] ED Physical Exam - General General appearance: alert, in no apparent distress, other (patient appears well she is healthy-appearing talkative) - Head Head exam: Present: atraumatic, normocephalic - Eye Eye exam: Present: normal appearance - ENT ENT exam: Present: mucous membranes moist - Neck Neck exam: Present: normal inspection. Absent: tenderness, meningismus - Respiratory Respiratory exam: Present: normal lung sounds bilaterally. Absent: respiratory distress, wheezes, rales, rhonchi, stridor - Cardiovascular Cardiovascular Exam: Present: regular rate, normal rhythm, normal heart sounds. Absent: bradycardia, tachycardia, irregular rhythm, systolic murmur, diastolic murmur, rubs, gallop - GI/Abdominal GI/Abdominal exam: Present: soft, normal bowel sounds. Absent: distended, tenderness, guarding, rebound, rigid - Extremities Exam Extremities exam: Present: normal inspection - Back Exam Back exam: Present: normal inspection - Neurological Exam Neurological exam: Present: alert, oriented X3 - Psychiatric Psychiatric exam: Present: normal affect, normal mood - Skin Skin exam: Present: warm, other (there is a 4 cm scalp abscess with overlying scar active drainage right posterior hairline no surrounding erythema). Absent : rash ED Course Vital Signs 12/09/17 12/09/17 12/09/17 06:11 06:15 06:30 Temperature Pulse Rate 90 Respiratory 26 H Rate Blood Pressure 146/74 149/81 O2 Sat by Pulse 99 99 99 Oximetry 12/09/17 12/09/17 12/09/17 06:44 06:45 07:00 Temperature 98 F Pulse Rate 90 90 Respiratory 20 22 22 Rate Blood Pressure 139/73 139/73 O2 Sat by Pulse 97 97 Oximetry 12/09/17 12/09/17 12/09/17 07:15 07:30 07:45 Temperature Pulse Rate 87 88 88 Respiratory 24 25 H 24 Rate Blood Pressure 138/71 139/73 153/77 O2 Sat by Pulse 96 95 95 Oximetry 12/09/17 12/09/17 12/09/17 08:00 08:15 08:30 Temperature Pulse Rate 85 89 85 Respiratory 19 16 21 Rate Blood Pressure 161/76 138/75 124/64 O2 Sat by Pulse 96 97 96 Oximetry 12/09/17 08:34 Temperature Pulse Rate Respiratory 15 Rate Blood Pressure O2 Sat by Pulse 97 Oximetry - I & D Right Head Type of Procedure: Complex Blade Size: 11 I & D Procedure: betadine prep Progress: Mrs. Ferro gave verbal informed consent for incision and drainage of right scalp abscess. I used 2 mL of 1% lidocaine without epinephrine for local anesthesia after Betadine preparation. 2 cm incision with #11 scalpel. Approximately 5 mL of purulent drainage. I used 10 cm of quarter inch iodoform gauze. sterile gauze dressing with tape. ED Medical Decision Making - Lab Data Result diagrams: 12/09/17 08:18 12/09/17 08:18 - Medical Decision Making Scalp abscess, presumed MRSA, tetanus status UTD Mrs. Ferro received IV vancomycin in the ED. I performed incision and drainage. Hyperglycemia with mild ketosis. NO acidosis. Insulin given in Ed. Patient states her blood glucose is always high. She received insulin IV in ED rx: bactrim keflex norco She will return to ER in 2 days for packing change and skin check. Critical care attestation.: If time is entered above; I have spent that time in minutes in the direct care of this critically ill patient, excluding procedure time. ED Disposition Clinical Impression: Cellulitis, Abscess Disposition: DC-01 TO HOME OR SELFCARE Is pt being admited?: No Does the pt Need Aspirin: No Condition: Stable Instructions: Abscess (ED) Additional Instructions: please return to ER in 2 days for skin check and packing change Prescriptions: Cephalexin [Keflex] 500 mg PO Q6HR 10 Days #40 capsule HYDROcodone/ACETAMINOPHEN [[place] 10-325 Tablet] 1 each PO Q6H #20 tablet Sulfamethoxazole/Trimethoprim [Bactrim DS TAB] 1 each PO BID 10 Days #20 tablet Time of Disposition: 10:42
[2017-12-09] MEDS ORDERED: VANCOMYCIN/NS 1 GM/250 ML 1 GM/250 ML BAG IV ONE (08:00)
[2017-12-09] MEDS ORDERED: VANCOMYCIN/0.45 NS 1 GM/250 ML 1 GM/250 ML BAG IV ONE (08:00)
[2017-12-09 08:41] LABS: Hematocrit 37.3 % (30.3-42.9); Hemoglobin 12.6 gm/dl (10.1-14.3); Mean Corpuscular HGB Conc 34 % (30-34); Mean Corpuscular Hemoglobin 29 pg (28-32); Mean Corpuscular Volume 85 fl (79-97); Platelet Count 212 K/mm3 (140-440); Red Blood Count 4.38 M/mm3 (3.65-5.03); Red Cell Distribution Width 14.3 % (13.2-15.2)
[2017-12-09 08:47] LABS: BUN/Creatinine Ratio 23; Blood Urea Nitrogen 18 mg/dL (7-17); Calcium 8.5 mg/dL (8.4-10.2); Hemolysis Index 3
[2017-12-09] MEDS ORDERED: XYLOCAINE 1% 20 mL INFILTRATI ONE (09:27)
[2017-12-09 11:03] VITALS: BP 107/64
== END 2017-12-09 11:05 | disposition home or self-care (01) ==
LOC: ED 06:00
DX: L02.811 Cutaneous abscess of head [any part, except face] (principal); L03.90 Cellulitis, unspecified; I10 Essential (primary) hypertension; E11.9 Type 2 diabetes mellitus without complications; J45.909 Unspecified asthma, uncomplicated; M19.90 Unspecified osteoarthritis, unspecified site; F17.200 Nicotine dependence, unspecified, uncomplicated; E05.90 Thyrotoxicosis, unspecified without thyrotoxic crisis or storm; Z88.6 Allergy status to analgesic agent
CPT/HCPCS: 10061; 36415; 80048; 82962; 85027; 96365; 96375; 99284; J3370; J1815; Q0162

== ENCOUNTER 2018-05-07 14:38 | Emergency (ER) | payer SELFPAY ==
[2018-05-07 14:47] VITALS: BP 96/59
[2018-05-07] MEDS ORDERED: NORCO 5/325 PO ONE (16:40)
--- NOTE | 2018-05-07 16:42 | Emergency Department Report ---
Upper Extremity - HPI Chief Complaint: Extremity Injury, Upper Stated Complaint: (L) WRIST PAIN Time Seen by Provider: 05/07/18 16:36 Upper Extremity: Left Wrist Occurred When: Today Mechanism: Fall Severity: moderate Symptoms: Yes Pain with Movement, Yes Deformity, Yes Limited Range of Movement, Yes Swelling, No Numbness, No Weakness, No Bruising/Ecchymosis, No Laceration or Abrasion Other History: 57-year-old female past medical history final fusion surgery, hyperlipidemia, hypertension, diabetes, depression, hypothyroid, arthritis, asthma presents with complaint of left hand and wrist pain status post mechanical fall at home. Patient states she accidentally tripped over flip flops while answering her door earlier today. Fell on an outstretched hand. Complaining of deformity and left wrist. States her lower back is also hurting. She is awake alert and oriented 3. Denies any head trauma. ED Review of Systems ROS: Stated complaint: (L) WRIST PAIN Other details as noted in HPI Constitutional: denies: chills, fever Eyes: denies: eye pain, eye discharge, vision change ENT: denies: ear pain, throat pain Respiratory: denies: cough, shortness of breath, wheezing Cardiovascular: denies: chest pain, palpitations Endocrine: no symptoms reported Gastrointestinal: denies: abdominal pain, nausea, diarrhea Genitourinary: denies: urgency, dysuria, discharge Musculoskeletal: as per HPI. denies: back pain, joint swelling, arthralgia Skin: denies: rash, lesions Neurological: denies: headache, weakness, paresthesias Psychiatric: denies: anxiety, depression Hematological/Lymphatic: denies: easy bleeding, easy bruising ED Past Medical Hx - Past Medical History Hx Hypertension: Yes Hx Diabetes: Yes Hx Arthritis: Yes Hx Asthma: Yes Additional medical history: hyperthyroid - Surgical History Hx Appendectomy: Yes Additional Surgical History: fusion to back - Social History Smoking Status: Current Every Day Smoker Substance Use Type: None - Medications Home Medications: Home Medications Medication Instructions Recorded Confirmed Last Taken Type Escitalopram [Lexapro] 10 mg PO DAILY 05/27/17 05/27/17 05/27/17 History Levothyroxine [Synthroid] 50 mcg PO QAM 05/27/17 05/27/17 05/27/17 History Lisinopril [Zestril TAB] 20 mg PO QDAY 05/27/17 05/27/17 05/27/17 History PARoxetine CR (NF) [Paxil (Nf)] 12.5 mg PO QAM 05/27/17 05/27/17 05/27/17 History Rosuvastatin (Nf) [Crestor] 20 mg PO QHS 05/27/17 05/27/17 05/27/17 History Combivent Respimat 20 mcg INHALATION Q6H PRN 05/31/17 05/31/17 Unknown History Ventolin HFA 90 mcg INHALATION Q4H PRN 05/31/17 05/31/17 Unknown History Acyclovir [Zovirax Tab] 800 mg PO TID #21 tablet 06/01/17 Unknown Rx Clindamycin [Clindamycin CAP] 450 mg PO Q8HR #42 capsule 06/01/17 Unknown Rx Detemir (Nf) [Levemir (Nf)] 10 units SUB-Q QHS #30 units 06/01/17 Unknown Rx HYDROcodone/APAP 5-325 [[place] 1 each PO Q4H PRN #20 tablet 06/01/17 Unknown Rx 5-325 mg TAB] Insulin NPH/Regular [NovoLIN 70/30] 15 unit SUB-Q QPM #30 units 06/01/17 Unknown Rx Insulin NPH/Regular [NovoLIN 70/30] 25 unit SUB-Q QAMDIAB #30 units 06/01/17 Unknown Rx Midodrine [Proamatine] 10 mg PO Q8H #30 tablet 06/01/17 Unknown Rx PARoxetine CR (NF) [Paxil (Nf)] 12.5 mg PO QDAY #30 tablet 06/01/17 Unknown Rx Sulfamethoxazole/Trimethoprim 1 each PO BID #28 tablet 06/01/17 Unknown Rx [Bactrim DS TAB] Cephalexin [Keflex] 500 mg PO Q6HR 10 Days #40 capsule 12/09/17 Unknown Rx HYDROcodone/ACETAMINOPHEN [[place] 1 each PO Q6H #20 tablet 12/09/17 Unknown Rx 10-325 Tablet] Sulfamethoxazole/Trimethoprim 1 each PO BID 10 Days #20 tablet 12/09/17 Unknown Rx [Bactrim DS TAB] HYDROcodone/APAP 5-325 [[place] 1 each PO Q6HR PRN #14 tablet 05/07/18 Unknown Rx 5/325] Upper Extremity Exam - Exam General: Vital signs noted. No distress. Alert and acting appropriately. Head and Torso: No HEENT Abnormality, No Neck Tenderness, No Chest/Lungs Abnormality, No Abdominal Tenderness, No Back Tenderness Shoulder Exam: Yes Normal Range of Motion in Shoulder (range of motion left shoulder clinically intact), No Shoulder Tenderness, No Clavicle Tenderness, No Shoulder Deformity, No AC Joint Tenderness Arm Exam: No Arm/Humerus Tenderness, No Arm Deformity Elbow: Yes Normal Range of Motion in Elbow (elbow range of motion clinically intact), No Elbow Tenderness, No Elbow Deformity Forearm: Yes Pain with Pronation (patient has pain with pronation and supination of the left forearm at the distal left wrist), Yes Pain with Supination, No Forearm Tenderness, No Forearm Deformity Wrist: Yes Wrist Tenderness, Yes Normal ROM in Wrist (she was able to extend her left wrist but it is very painful), No Wrist Deformity, No Snuffbox Tenderness, No Pain with Axial Thumb Compression Hand: Yes Normal ROM in Digit(s), No Hand Tenderness, No Hand Deformity, No Digit Tenderness, No Digit(s) Deformity, No Tendon Dysfunction CMS Exam: Yes Normal Distal Pulses (distal radial brachial and ulnar pulses strong to palpation), Yes Normal Capillary Refill (capillary refill less than one second golfing), Yes Normal Distal Sensation (distal sensation intact all fingers to proprioception left upper extremity), No Broken Skin Hand L/R Back: 1 - Slight dinner fork deformity here. ED Course Vital Signs 05/07/18 14:43 Temperature 97.7 F Pulse Rate 85 Respiratory 18 Rate Blood Pressure 96/59 O2 Sat by Pulse 94 Oximetry ED Medical Decision Making - Medical Decision Making A/P: Left distal wrist fracture 1-patient placed in volar OCL splint with sling 2-short course of [place] when necessary 3-follow-up with orthopedics. I emphasized the importance of follow-up with orthopedics to the patient. Patient stated that she would call for follow-up as instructed within the next few days 4-neurovascular exam left upper extremity clinically intact. Good distal pulses and sensation capillary refill less than one second all fingers and no wrist drop left wrist. 5- case d/w ED attending before dc Critical care attestation.: If time is entered above; I have spent that time in minutes in the direct care of this critically ill patient, excluding procedure time. ED Disposition Clinical Impression: Left wrist fracture Qualifiers: Encounter type: initial encounter Fracture type: closed Qualified Code(s): S62.102A - Fracture of unspecified carpal bone, left wrist, initial encounter for closed fracture Disposition: DC- TO HOME OR SELFCARE Is pt being admited?: No Does the pt Need Aspirin: No Condition: Stable Instructions: Wrist Fracture in Adults (ED), Splint Care (ED) Prescriptions: HYDROcodone/APAP 5-325 [[place] 5/325] 1 each PO Q6HR PRN #14 tablet PRN Reason: Pain Referrals: [facility] [Provider Group] - 3-5 Days TIM ALY MD [Staff Physician] - 3-5 Days Forms: Work/School Release Form(ED) Time of Disposition: 17:27
--- NOTE | 2018-05-07 17:29 | XRay Report ---
FINAL REPORT EXAM: XR WRIST 3+V LT HISTORY: s/p fall ? left wrist fracture COMPARISON: None available. FINDINGS: Three views left wrist obtained. There is a transverse fracture of the distal radial metaphysis with dorsal displacement of the distal fracture segment by approximately 5 millimeters and slight dorsal angulation. There may be a small comminuted fracture segment extending to the articular surface of the distal radius. Gross normal alignment of the carpal bones relative to the distal radial articular surface. No other fracture identified. Mild degenerative changes the 1st carpometacarpal joint. IMPRESSION: Comminuted and slightly impacted fracture of the distal radial metaphysis. Dorsal displacement and slight dorsal angulation of the distal fracture segment.
--- NOTE | 2018-05-07 17:34 | XRay Report ---
FINAL REPORT EXAM: XR HAND 3+V LT HISTORY: s/p fall ? wrist/hand fracture COMPARISON: Left wrist from the same date. FINDINGS: Three views of left hand obtained. Partial visualization of distal radial fracture. Remaining bony structures are intact. Mild degenerative changes of the interphalangeal joints and 1st carpometacarpal joint. IMPRESSION: Re-demonstration of distal radial fracture. No other acute fracture of the left hand.
== END 2018-05-07 17:38 | disposition home or self-care (01) ==
LOC: ED 14:38
DX: S62.102A Fracture of unspecified carpal bone, left wrist, initial encounter for closed fracture (principal); I10 Essential (primary) hypertension; E11.9 Type 2 diabetes mellitus without complications; M19.90 Unspecified osteoarthritis, unspecified site; J45.909 Unspecified asthma, uncomplicated; E05.90 Thyrotoxicosis, unspecified without thyrotoxic crisis or storm; F17.200 Nicotine dependence, unspecified, uncomplicated; Z88.5 Allergy status to narcotic agent; Z79.4 Long term (current) use of insulin; W01.0XXA Fall on same level from slipping, tripping and stumbling without subsequent striking against object, initial encounter; Y93.89 Activity, other specified; Y92.098 Other place in other non-institutional residence as the place of occurrence of the external cause; Y99.8 Other external cause status
CPT/HCPCS: 99284

== ENCOUNTER 2018-06-21 15:13 | Emergency (ER) | payer SELFPAY ==
[2018-06-21 15:33] VITALS: BP 142/96
== END 2018-06-21 19:25 | disposition left against medical advice (07) ==
LOC: ED 15:13
DX: M25.532 Pain in left wrist (principal); Z53.21 Procedure and treatment not carried out due to patient leaving prior to being seen by health care provider